=== PATIENT | male | born 1955 | race Caucasian/White ===

== ENCOUNTER 2019-01-08 20:25 | Inpatient (IN) | payer MEDICARE, MEDICAID ==
[~2019-01-08] VITALS: Ht 177.8 cm; Wt 66.9 kg
[2019-01-08 21:16] LABS: HEMATOCRIT 38.1 % (39.0-53.0); HEMOGLOBIN 12.7 g/dL (13.0-17.5); RED BLOOD COUNT 4.35 x10^6/uL (4.30-5.70); RED CELL DISTRIBUTION WIDTH 14.2 % (11.5-14.5); WHITE BLOOD COUNT 5.9 x10^3/uL (4.0-11.0)
[2019-01-08 21:23] LABS: BACTERIA,URINE 0 /HPF (0-FEW); BILIRUBIN,URINE NEG (NEG); CALCIUM 9.3 mg/dL (8.5-10.1); CLARITY,URINE HAZY; COLOR,URINE YELLOW; GLUCOSE,URINE NEG (NEG); NITRITE,URINE NEG (NEG); POTASSIUM 4.2 mmol/L (3.5-5.1); RBC,URINE 0 /HPF (0-2); SQUAMOUS EPITHELIAL CELL,UR OCC /LPF; UROBILINOGEN,URINE 1 mg/dL (0.2 mg/dL); WBC,URINE 0 /HPF (0-4)
[2019-01-08 21:25] LABS: BARBITURATES NEG (NEG); BENZODIAZEPINES NEG (NEG); CANNABINOIDS NEG (NEG); COCAINE NEG (NEG); METHADONE NEG (NEG); OPIATES NEG (NEG); PHENCYCLIDINE NEG (NEG)
[2019-01-08 21:26] LABS: AMPHETAMINE/METHAMPHETAMINE NEG (NEG)
[2019-01-08] MEDS ORDERED: ACETAMINOPHEN 325 MG TABLET PO PRN (21:30)
--- NOTE | 2019-01-08 21:35 | PHYS DOC ---
Adult General Chief Complaint Chief Complaint here for medical evaluation HPI HPI 63 male to be admitted for [facility] , here for medical clearance , patient denies any symptoms . Review of Systems Review of Systems Constitutional: Denies fever or chills [] Eyes: Denies change in visual acuity, redness, or eye pain [] HENT: Denies nasal congestion or sore throat [] Respiratory: Denies cough or shortness of breath [] Cardiovascular: No additional information not addressed in HPI [] GI: Denies abdominal pain, nausea, vomiting, bloody stools or diarrhea [] : Denies dysuria or hematuria [] Musculoskeletal: Denies back pain or joint pain [] Integument: Denies rash or skin lesions [] Current Medications Current Medications Current Medications Medications (Trade) Dose Ordered Sig/Gerard Start Time Stop Time Status Last Admin Dose Admin Acetaminophen (Tylenol) 650 mg PRN Q4HRS PRN 01/08/19 21:30 01/09/19 21:29 UNV Physical Exam Physical Exam Constitutional: Well developed, well nourished, no acute distress, non-toxic appearance. [] HENT: Normocephalic, atraumatic, bilateral external ears normal, oropharynx moist, no oral exudates, nose normal. [] Eyes: PERRLA, EOMI, conjunctiva normal, no discharge. [] Neck: Normal range of motion, no tenderness, supple, no stridor. [] Cardiovascular:Heart rate regular rhythm, no murmur [] Lungs & Thorax: Bilateral breath sounds clear to auscultation [] Abdomen: Bowel sounds normal, soft, no tenderness, no masses, no pulsatile masses. [] Skin: Warm, dry, no erythema, no rash. [] Back: No tenderness, no CVA tenderness. [] Extremities: No tenderness, no cyanosis, no clubbing, ROM intact, no edema. [] Neurologic: Alert and oriented X 3, normal motor function, normal sensory function, no focal deficits noted. [] Current Patient Data Vital Signs Vital Signs Date Time Temp Pulse Resp B/P (MAP) Pulse Ox O2 Delivery O2 Flow Rate FiO2 01/08/19 20:31 98.1 70 18 97 Room Air Lab Results Laboratory Tests Test 01/08/19 20:31 White Blood Count 5.9 x10^3/uL (4.0-11.0) Red Blood Count 4.35 x10^6/uL (4.30-5.70) Hemoglobin 12.7 g/dL (13.0-17.5) L Hematocrit 38.1 % (39.0-53.0) L Mean Corpuscular Volume 88 fL (79-100) Mean Corpuscular Hemoglobin 29 pg (25-35) Mean Corpuscular Hemoglobin Concent 33 g/dL (31-37) Red Cell Distribution Width 14.2 % (11.5-14.5) Platelet Count 293 x10^3/uL (140-400) Urine Collection Type Unknown Urine Color Yellow Urine Clarity Hazy Urine pH 6.0 Urine Specific [place] >=1.030 Urine Protein Neg (NEG-TRACE) Urine Glucose (UA) Neg mg/dL (NEG) Urine Ketones (Stick) Trace mg/dL (NEG) Urine Blood Neg (NEG) Urine Nitrite Neg (NEG) Urine Bilirubin Neg (NEG) Urine Urobilinogen Dipstick 1 mg/dL (0.2 mg/dL) Urine Leukocyte Esterase Neg (NEG) Urine RBC 0 /HPF (0-2) Urine WBC 0 /HPF (0-4) Urine Squamous Epithelial Cells Occ /LPF Urine Bacteria 0 /HPF (0-FEW) Sodium Level 144 mmol/L (136-145) Potassium Level 4.2 mmol/L (3.5-5.1) Chloride Level 106 mmol/L (98-107) Carbon Dioxide Level 28 mmol/L (21-32) Anion Gap 10 (6-14) Blood Urea Nitrogen 21 mg/dL (8-26) Creatinine 1.0 mg/dL (0.7-1.3) Estimated GFR (Cockcroft-Gault) 75.0 Glucose Level 93 mg/dL (70-99) Calcium Level 9.3 mg/dL (8.5-10.1) Urine Opiates Screen Neg (NEG) Urine Methadone Screen Neg (NEG) Urine Barbiturates Neg (NEG) Urine Phencyclidine Screen Neg (NEG) Urine Amphetamine/Methamphetamine Neg (NEG) Urine Benzodiazepines Screen Neg (NEG) Urine Cocaine Screen Neg (NEG) Urine Cannabinoids Screen Neg (NEG) Ethyl Alcohol Level < 10 mg/dL (0-10) Urine Ethyl Alcohol Neg (NEG) EKG EKG [] Radiology/Procedures Radiology/Procedures [] Course & Med Decision Making Course & Med Decision Making Pertinent Labs and Imaging studies reviewed. (See chart for details) [] Final Impression Final Impression [] Problems: (1) Medical clearance for psychiatric admission Dragon Disclaimer Dragon Disclaimer This electronic medical record was generated, in whole or in part, using a voice recognition dictation system. CHECO HARRISON MD Jan 08, 2019 21:35
[2019-01-09] MEDS ORDERED: ACETAMINOPHEN 325 MG TABLET PO PRN ×2 (00:30→02:15)
[2019-01-09] MEDS ORDERED: MAGNESIUM HYDROXIDE 2,400 MG/30 ML ORAL.SUSP. PO PRN (00:30)
[2019-01-09] MEDS ORDERED: MAG HYDROX/AL HYDROX/SIMETH 30 ML ORAL.SUSP PO PRN (00:30)
[2019-01-09] MEDS ORDERED: METHYL SALICYLATE/MENTHOL TOPICAL OINTMENT 29GM TUBE. TP PRN (00:30)
[2019-01-09 01:05] LABS: VAL ACID 18 mcg/mL (50-100)
[2019-01-09 01:16] VITALS: BP 149/90
[2019-01-09] MEDS ORDERED: DORZ10DR27 OD (02:04)
[2019-01-09] MEDS ORDERED: ERYT1OIN6 OS (02:04)
[2019-01-09] MEDS ORDERED: CARB15DR3 OD (02:04)
[2019-01-09] MEDS ORDERED: AMIN30LI5 PO (02:04)
[2019-01-09] MEDS ORDERED: LATA2.5D3 OD (02:04)
[2019-01-09] MEDS ORDERED: ESTR0.5T PO (02:04)
[2019-01-09] MEDS ORDERED: DEXT1CAP PO (02:04)
[2019-01-09] MEDS ORDERED: SENN1TAB62 PO (02:04)
[2019-01-09] MEDS ORDERED: DIVA500T2 PO (02:04)
[2019-01-09] MEDS ORDERED: HALO5VIA2 IM (02:04)
[2019-01-09] MEDS ORDERED: CHOL500021 PO (02:04)
[2019-01-09] MEDS ORDERED: TAMS0.4C97 PO (02:04)
[2019-01-09] MEDS ORDERED: POLY17PO5 PO (02:04)
[2019-01-09] MEDS ORDERED: LEVO25TA4 PO (02:04)
[2019-01-09] MEDS ORDERED: MULT1TAB52 PO (02:04)
[2019-01-09] MEDS ORDERED: RANI150T2 PO (02:04)
[2019-01-09] MEDS ORDERED: CARB15DR3 OU (02:04)
[2019-01-09] MEDS ORDERED: RISP2TAB3 PO (02:04)
[2019-01-09] MEDS ORDERED: ACET-704 PO (02:04)
[2019-01-09] MEDS ORDERED: LORA0.5T PO ×2 (02:04)
[2019-01-09] MEDS ORDERED: ACET325T9 PO (02:04)
[2019-01-09] MEDS ORDERED: LACT10SO PO (02:04)
[2019-01-09] MEDS ORDERED: LORazepam 0.5 MG TABLET PO PRN (02:15)
[2019-01-09] MEDS ORDERED: ACETAMINOPHEN/CODEINE 300/30MG TABLET PO PRN ×2 (02:15)
[2019-01-09] MEDS ORDERED: HALOPERIDOL LACT 5 MG/ML VIAL. IM PRN (02:15)
[2019-01-09] MEDS: LEVOTHYROXINE 25 MCG TABLET. PO SCH (05:48)
[2019-01-09 06:11] VITALS: BP 115/74
[2019-01-09] MEDS: DIVALPROEX 125 MG CAP.SPRINK PO SCH ×2 (08:42→19:54)
[2019-01-09] MEDS: MULTIVITAMIN with MINERAL TABLET. PO SCH (08:42)
[2019-01-09] MEDS: FAMOTIDINE 20 MG TABLET PO SCH ×2 (08:42→19:54)
[2019-01-09] MEDS: ERYTHROMYCIN 0.5% OPHTH OINTMENT 1GM TUBE. OS SCH (08:42)
[2019-01-09] MEDS: LORazepam 0.5 MG TABLET PO SCH ×3 (08:42→19:58)
[2019-01-09] MEDS: risperiDONE 2 MG TABLET. PO SCH ×2 (08:42→19:54)
[2019-01-09] MEDS: LACTULOSE 20 GM/30 ML SOLUTION. PO SCH ×2 (08:42→19:54)
[2019-01-09] MEDS ORDERED: PROTEIN HYDROLYS PO SCH (09:00)
[2019-01-09] MEDS ORDERED: POLYVINYL ALCOHOL/POVIDONE/PF OPHTH SOLUTION DROPERETTE. OU SCH (09:00)
[2019-01-09] MEDS ORDERED: AMINO ACIDS PO SCH (09:00)
[2019-01-09] MEDS: ESTRADIOL 1 MG TABLET PO SCH (09:01)
[2019-01-09] MEDS: DEXTROMETHORPHAN/QUINIDINE 20/10MG CAPSULE. PO SCH ×2 (09:01→19:58)
[2019-01-09] MEDS: LATANOPROST 0.005% OPHTH SOLUTION 2.5ML BOTTLE. OD SCH (09:01)
[2019-01-09] MEDS: DORZOLAMIDE/TIMOLOL 2%/0.5% OPHTH SOLUTION 10ML BOTTLE. OD SCH ×2 (09:01→20:44)
[2019-01-09] MEDS: POLYETHYLENE GLYCOL 3350 17 GM PACKET. PO SCH (09:02)
[2019-01-09] MEDS: CHOLECALCIFEROL (VITAMIN D3) 50,000 UNIT CAPSULE PO SCH (09:05)
--- NOTE | 2019-01-09 10:06 | EKG ---
[address] [address] Test Date: 2019-01-08 Test Time: 21:19:32 Pat Name: FANG VALERIO Department: Room: [address] [place] [address] Gender: M Furnace Repairer: : 1955 Requested By: CHECO HARRISON Order Number: [id number] Reading MD: Lang Toth MD Measurements Intervals [place] Rate: 66 P: 90 CT: 144 QRS: 67 QRSD: 126 T: 25 QT: 426 QTc: 448 Interpretive Statements SINUS RHYTHM RBBB Electronically Signed On 01-10-2019 16:37:26 CDT by Lang Toth MD
[2019-01-09 13:46] LABS: THYROID STIM HORMONE (TSH) 4.019 uIU/mL (0.358-3.740)
[2019-01-09 16:01] VITALS: BP 106/73
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
[2019-01-09 19:11] LABS: THYROXINE 7.4 ug/dL (4.5-12.0)
[2019-01-09] MEDS: SENNOSIDES/DOCUSATE 8.6/50MG TABLET. PO SCH (19:58)
[2019-01-09] MEDS: TAMSULOSIN 0.4 MG CAP.ER.24H. PO SCH (19:58)
[2019-01-09] MEDS ORDERED: NON FORMULARY ITEM (Carboxymethylcellulos/Glycerin (Refresh Optive Eye Drops) 1 DROP) OD SCH (21:00)
--- NOTE | 2019-01-09 22:33 | PDOC ---
Exam Note: Adrián Note: Please also refer to the separate dictated note~for this date of service dictated separately. Discussed the patient with Nursing staff reviewed the chart.~Reviewed interim history and current functioning. Reviewed vital signs,~ Labs/ Radiology~and current medications noted below. Continue current treatment with the changes noted in the dictated addendum note Assessment: Vital Signs: Vital Signs Date Time Temp Pulse Resp B/P (MAP) Pulse Ox O2 Delivery O2 Flow Rate FiO2 01/09/19 16:01 97.9 58 17 106/73 (84) 97 Room Air I&O Intake and Output 01/09/19 07:00 Intake Total 0 ml Balance 0 ml Intake Oral 0 ml Current Medications: Meds: Current Medications Acetaminophen (Tylenol) 650 mg PRN Q4HRS PRN PO FEVER; Start 01/08/19 at 21:30 ; Stop 01/09/19 at 21:29; Status Cancel Acetaminophen (Tylenol) 650 mg PRN Q6HRS PRN PO PAIN / TEMP; Start 01/09/19 at 00:30; Status Cancel Multi-Ingredient Ointment (Analgesic Register) 1 she PRN QID PRN TP MUSCLE PAIN; Start 01/09/19 at 00:30 Al Hydroxide/Mg Hydroxide (Mylanta Plus Xs) 15 ml PRN AFTMEALHC PRN PO DYSPEPSIA; Start 01/09/19 at 00:30 Magnesium Hydroxide (Milk Of Magnesia) 2,400 mg PRN QHS PRN PO CONSTIPATION; Start 01/09/19 at 00:30 Divalproex Sodium (Depakote Sprinkles) 125 mg BID PO Last administered on at 19:54; Start 01/09/19 at 09:00 Estradiol (Estrace) 0.5 mg DAILY PO Last administered on 01/09/19at 09:01; Start 01/09/19 at 09:00 Haloperidol Lactate (Haldol) 5 mg PRN DAILY PRN IM ANXIETY / AGITATION; Start 01/09/19 at 02:15 Lorazepam (Ativan) 0.5 mg PRN DAILY PRN PO ANXIETY; Start 01/09/19 at 02:15 Lorazepam (Ativan) 0.5 mg TID PO Last administered on 01/09/19at 19:58; Start at 09:00 Risperidone (RisperDAL) 2 mg BID PO Last administered on 01/09/19at 19:54; Start 01/09/19 at 09:00 Acetaminophen (Tylenol) 650 mg PRN Q6HRS PRN PO PAIN / TEMP; Start 01/09/19 at 02:15 Vitamin D (Vitamin D3) 50,000 unit WEEKLY PO Last administered on 01/09/19at 09: 05; Start 01/09/19 at 09:00 Dextromethorphan/ Quinidine (Nuedexta 20-10 Mg Capsule) 1 cap BID PO Last administered on 01/09/19at 19:58; Start 01/09/19 at 09:00 Senna/Docusate Sodium (Senna Plus) 1 tab HS PO Last administered on 01/09/19at 19:58; Start 01/09/19 at 21:00 Tamsulosin HCl (Flomax) 0.4 mg HS PO Last administered on 01/09/19at 19:58; Start 01/09/19 at 21:00 Acetaminophen/ Codeine Phosphate (Tylenol #3) 1 tab PRN Q4HRS PRN PO PAIN; Start 01/09/19 at 02:15 Acetaminophen/ Codeine Phosphate (Tylenol #3) 2 tab PRN Q4HRS PRN PO PAIN; Start 01/09/19 at 02:15 Non-Formulary Medication (Amino Acids/ Protein Hydrolys (Pro-Stat c Liquid Packet)) 30 ml DAILY PO ; Start 01/09/19 at 09:00; Status UNV Non-Formulary Medication (Carboxymethylcellulos/ Glycerin (Refresh Optive Eye Drops)) 1 drop HS OD ; Start 01/09/19 at 21:00; Stop 01/09/19 at 21:00; Status DC Artificial Tears (Refresh Classic) 1 drop QID OU ; Start 01/09/19 at 09:00; Stop 01/09/19 at 09:00; Status DC Dorzolamide/ Timolol (Cosopt) 1 drop BID OD Last administered on 01/09/19at 20: 44; Start 01/09/19 at 09:00 Lactulose (Lactulose) 20 gm BID PO Last administered on 01/09/19at 19:54; Start 01/09/19 at 09:00 Latanoprost (Xalatan) 1 drop QHS OD Last administered on 01/09/19 09:01; Start 01/09/19 at 21:00 Levothyroxine Sodium (Synthroid) 25 mcg DAILY06 PO Last administered on 05:48; Start 01/09/19 at 06:00 Multivitamins/ Calcium (Thera-M Plus) 1 tab DAILY PO Last administered on 08:42; Start 01/09/19 at 09:00 Polyethylene Glycol (miraLAX) 17 gm DAILY PO Last administered on 01/09/19 09: 02; Start 01/09/19 at 09:00 Famotidine (Pepcid) 20 mg BID PO Last administered on 01/09/19 19:54; Start at 09:00 Erythromycin (Romycin) 1 inch DAILY OS Last administered on 01/09/19 08:42; Start 01/09/19 at 09:00 Active Scripts Active Reported Ranitidine Hcl 150 Mg Tablet 150 Mg PO BID Tylenol (Acetaminophen) 325 Mg Tablet 650 Mg PO PRN Q6HRS Flomax (Tamsulosin Hcl) 0.4 Mg Cap.er.24h 0.4 Mg PO HS Senna Plus Tablet (Sennosides/Docusate Sodium) 1 Each Tablet 1 Each PO HS Risperidone 2 Mg Tablet 2 Mg PO BID Refresh Optive Eye Drops (Carboxymethylcellulos/Glycerin) 15 Ml Drops 1 Drop OU QID Refresh Optive Eye Drops (Carboxymethylcellulos/Glycerin) 15 Ml Drops 1 Drop OD HS Pro-Stat Awc Liquid Packet (Amino Acids/Protein Hydrolys) 30 Ml Liquid.pkt 30 Ml PO DAILY Miralax (Polyethylene Glycol 3350) 17 Gm Powd.pack 17 Gm PO DAILY Nuedexta 20-10 Mg Capsule (Dextromethorphan Hbr/Quinidine) 1 Each Capsule 1 Each PO BID Multivitamins (Multivitamin) 1 Each Tablet 1 Each PO DAILY Levothyroxine Sodium 25 Mcg Tablet 25 Mcg PO DAILYAC Latanoprost 2.5 Ml Drops 1 Drop OD QHS Lactulose 10 Gm/15 Ml Solution 20 Gm PO BID Haloperidol Lactate 5 Mg/1 Ml Vial 5 Mg IM PRN DAILY PRN Estradiol 0.5 Mg Tablet 0.5 Mg PO DAILY Erythromycin (Erythromycin Base) 1 Gm Oint...g. 1 She OS BID Dorzolamide-Timolol Eye Drops (Dorzolamide Hcl/Timolol Maleat) 10 Ml Drops 1 Drop OD BID Depakote (Divalproex Sodium) 500 Mg Tablet.dr 125 Mg PO BID D3-50 (Cholecalciferol (Vitamin D3)) 50,000 Unit Capsule 50,000 Unit PO WEEKLY SUNDAY Lorazepam 0.5 Mg Tablet 0.5 Mg PO PRN DAILY PRN Lorazepam 0.5 Mg Tablet 0.5 Mg PO TID Tylenol With Codeine #3 Tablet (Acetaminophen With Codeine) 1 Each Tablet 2 Each PO PRN Q4HRS PRN Tylenol With Codeine #3 Tablet (Acetaminophen With Codeine) 1 Each Tablet 1 Each PO PRN Q4HRS PRN I have reviewed the current psychotropics carefully including drug interactions. Risk benefit ratio favors no change other than as noted in my dictated progress note. Diagnosis: Problems: (1) Medical clearance for psychiatric admission (2) Anxiety disorder (3) Major depressive disorder, recurrent episode (4) Impulse control disorder (5) Schizoaffective disorder, chronic condition with acute exacerbation (6) Mild cognitive disorder LEENA CHINCHILLA MD Jan 09, 2019 22:33
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
[2019-01-10] MEDS: LEVOTHYROXINE 25 MCG TABLET. PO SCH (05:45)
[2019-01-10 06:14] VITALS: BP 108/67
[2019-01-10] MEDS: POLYETHYLENE GLYCOL 3350 17 GM PACKET. PO SCH (07:51)
[2019-01-10] MEDS: DEXTROMETHORPHAN/QUINIDINE 20/10MG CAPSULE. PO SCH ×2 (07:52→20:00)
[2019-01-10] MEDS: FAMOTIDINE 20 MG TABLET PO SCH ×2 (07:52→20:01)
[2019-01-10] MEDS: ESTRADIOL 1 MG TABLET PO SCH (07:52)
[2019-01-10] MEDS: DIVALPROEX 125 MG CAP.SPRINK PO SCH ×2 (07:52→20:01)
[2019-01-10] MEDS: risperiDONE 2 MG TABLET. PO SCH ×2 (07:53→20:01)
[2019-01-10] MEDS: ERYTHROMYCIN 0.5% OPHTH OINTMENT 1GM TUBE. OS SCH (07:53)
[2019-01-10] MEDS: LACTULOSE 20 GM/30 ML SOLUTION. PO SCH ×2 (07:53→20:00)
[2019-01-10] MEDS: MULTIVITAMIN with MINERAL TABLET. PO SCH (07:53)
[2019-01-10] MEDS: DORZOLAMIDE/TIMOLOL 2%/0.5% OPHTH SOLUTION 10ML BOTTLE. OD SCH ×2 (07:55→20:01)
[2019-01-10] MEDS: LORazepam 0.5 MG TABLET PO SCH ×3 (07:56→20:02)
[2019-01-10 16:05] VITALS: BP 107/74
[2019-01-10] MEDS ORDERED: traZODone 50 MG TABLET. PO PRN (17:15)
[2019-01-10] MEDS: TAMSULOSIN 0.4 MG CAP.ER.24H. PO SCH (20:00)
[2019-01-10] MEDS: LATANOPROST 0.005% OPHTH SOLUTION 2.5ML BOTTLE. OD SCH (20:01)
[2019-01-10] MEDS: SENNOSIDES/DOCUSATE 8.6/50MG TABLET. PO SCH (20:01)
[2019-01-10] MEDS: traZODone 50 MG TABLET. PO SCH (20:02)
--- NOTE | 2019-01-10 22:38 | PDOC ---
Exam Note: Adrián Note: Please also refer to the separate dictated note~for this date of service dictated separately.~Patient seen individually. Discussed the patient with Nursing staff reviewed the chart.~Reviewed interim history and current functioning. Reviewed vital signs,~Labs/ Radiology~and current medications noted below. Continue current treatment with the changes noted in the dictated addendum note Assessment: Vital Signs: Vital Signs Date Time Temp Pulse Resp B/P (MAP) Pulse Ox O2 Delivery O2 Flow Rate FiO2 01/10/19 16:05 98.1 69 16 107/74 (85) 95 Room Air I&O Intake and Output 01/10/19 07:00 Intake Total 480 ml Balance 480 ml Intake Oral 480 ml Current Medications: Meds: Current Medications Acetaminophen (Tylenol) 650 mg PRN Q4HRS PRN PO FEVER; Start 01/08/19 at 21:30 ; Stop 01/09/19 at 21:29; Status Cancel Acetaminophen (Tylenol) 650 mg PRN Q6HRS PRN PO PAIN / TEMP; Start 01/09/19 at 00:30; Status Cancel Multi-Ingredient Ointment (Analgesic [place]) 1 she PRN QID PRN TP MUSCLE PAIN; Start 01/09/19 at 00:30 Al Hydroxide/Mg Hydroxide (Mylanta Plus Xs) 15 ml PRN AFTMEALHC PRN PO DYSPEPSIA; Start 01/09/19 at 00:30 Magnesium Hydroxide (Milk Of Magnesia) 2,400 mg PRN QHS PRN PO CONSTIPATION; Start 01/09/19 at 00:30 Divalproex Sodium (Depakote Sprinkles) 125 mg BID PO Last administered on at 07:52; Start 01/09/19 at 09:00; Stop 01/10/19 at 17:11; Status DC Estradiol (Estrace) 0.5 mg DAILY PO Last administered on 01/10/19at 07:52; Start 01/09/19 at 09:00 Haloperidol Lactate (Haldol) 5 mg PRN DAILY PRN IM ANXIETY / AGITATION; Start 01/09/19 at 02:15 Lorazepam (Ativan) 0.5 mg PRN DAILY PRN PO ANXIETY; Start 01/09/19 at 02:15 Lorazepam (Ativan) 0.5 mg TID PO Last administered on 01/10/19at 20:02; Start at 09:00 Risperidone (RisperDAL) 2 mg BID PO Last administered on 01/10/19 20:01; Start 01/09/19 at 09:00 Acetaminophen (Tylenol) 650 mg PRN Q6HRS PRN PO PAIN / TEMP; Start 01/09/19 at 02:15 Vitamin D (Vitamin D3) 50,000 unit WEEKLY PO Last administered on 01/09/19at 09: 05; Start 01/09/19 at 09:00 Dextromethorphan/ Quinidine (Nuedexta 20-10 Mg Capsule) 1 cap BID PO Last administered on 01/10/19 20:00; Start 01/09/19 at 09:00 Senna/Docusate Sodium (Senna Plus) 1 tab HS PO Last administered on 01/10/19 20:01; Start 01/09/19 at 21:00 Tamsulosin HCl (Flomax) 0.4 mg HS PO Last administered on 01/10/19 20:00; Start 01/09/19 at 21:00 Acetaminophen/ Codeine Phosphate (Tylenol #3) 1 tab PRN Q4HRS PRN PO PAIN; Start 01/09/19 at 02:15 Acetaminophen/ Codeine Phosphate (Tylenol #3) 2 tab PRN Q4HRS PRN PO PAIN; Start 01/09/19 at 02:15 Non-Formulary Medication (Amino Acids/ Protein Hydrolys (Pro-Stat Awc Liquid Packet)) 30 ml DAILY PO ; Start 01/09/19 at 09:00; Status UNV Non-Formulary Medication (Carboxymethylcellulos/ Glycerin (Refresh Optive Eye Drops)) 1 drop HS OD ; Start 01/09/19 at 21:00; Stop 01/09/19 at 21:00; Status DC Artificial Tears (Refresh Classic) 1 drop QID OU ; Start 01/09/19 at 09:00; Stop 01/09/19 at 09:00; Status DC Dorzolamide/ Timolol (Cosopt) 1 drop BID OD Last administered on 01/10/19 20: 01; Start 01/09/19 at 09:00 Lactulose (Lactulose) 20 gm BID PO Last administered on 01/10/19at 20:00; Start 01/09/19 at 09:00 Latanoprost (Xalatan) 1 drop QHS OD Last administered on 01/10/19 20:01; Start 01/09/19 at 21:00 Levothyroxine Sodium (Synthroid) 25 mcg DAILY06 PO Last administered on 05:45; Start 01/09/19 at 06:00 Multivitamins/ Calcium (Thera-M Plus) 1 tab DAILY PO Last administered on 07:53; Start 01/09/19 at 09:00 Polyethylene Glycol (miraLAX) 17 gm DAILY PO Last administered on 01/10/19 07: 51; Start 01/09/19 at 09:00 Famotidine (Pepcid) 20 mg BID PO Last administered on 01/10/19 20:01; Start at 09:00 Erythromycin (Romycin) 1 inch DAILY OS Last administered on 01/10/19 07:53; Start 01/09/19 at 09:00; Stop 01/10/19 at 10:32; Status DC Divalproex Sodium (Depakote Sprinkles) 250 mg BID PO Last administered on 20:01; Start 01/10/19 at 21:00 Trazodone HCl (Desyrel) 50 mg QHS PO Last administered on 01/10/19 20:02; Start 01/10/19 at 21:00 Trazodone HCl (Desyrel) 50 mg PRN QHS PRN PO INSOMNIA; Start 01/10/19 at 17:15 Active Scripts Active Reported Ranitidine Hcl 150 Mg Tablet 150 Mg PO BID Tylenol (Acetaminophen) 325 Mg Tablet 650 Mg PO PRN Q6HRS Flomax (Tamsulosin Hcl) 0.4 Mg Cap.er.24h 0.4 Mg PO HS Senna Plus Tablet (Sennosides/Docusate Sodium) 1 Each Tablet 1 Each PO HS Risperidone 2 Mg Tablet 2 Mg PO BID Refresh Optive Eye Drops (Carboxymethylcellulos/Glycerin) 15 Ml Drops 1 Drop OU QID Refresh Optive Eye Drops (Carboxymethylcellulos/Glycerin) 15 Ml Drops 1 Drop OD HS Pro-Stat Awc Liquid Packet (Amino Acids/Protein Hydrolys) 30 Ml Liquid.pkt 30 Ml PO DAILY Miralax (Polyethylene Glycol 3350) 17 Gm Powd.pack 17 Gm PO DAILY Nuedexta 20-10 Mg Capsule (Dextromethorphan Hbr/Quinidine) 1 Each Capsule 1 Each PO BID Multivitamins (Multivitamin) 1 Each Tablet 1 Each PO DAILY Levothyroxine Sodium 25 Mcg Tablet 25 Mcg PO DAILYAC Latanoprost 2.5 Ml Drops 1 Drop OD QHS Lactulose 10 Gm/15 Ml Solution 20 Gm PO BID Haloperidol Lactate 5 Mg/1 Ml Vial 5 Mg IM PRN DAILY PRN Estradiol 0.5 Mg Tablet 0.5 Mg PO DAILY Erythromycin (Erythromycin Base) 1 Gm Oint...g. 1 She OS BID Dorzolamide-Timolol Eye Drops (Dorzolamide Hcl/Timolol Maleat) 10 Ml Drops 1 Drop OD BID Depakote (Divalproex Sodium) 500 Mg Tablet.dr 125 Mg PO BID D3-50 (Cholecalciferol (Vitamin D3)) 50,000 Unit Capsule 50,000 Unit PO WEEKLY SUNDAY Lorazepam 0.5 Mg Tablet 0.5 Mg PO PRN DAILY PRN Lorazepam 0.5 Mg Tablet 0.5 Mg PO TID Tylenol With Codeine #3 Tablet (Acetaminophen With Codeine) 1 Each Tablet 2 Each PO PRN Q4HRS PRN Tylenol With Codeine #3 Tablet (Acetaminophen With Codeine) 1 Each Tablet 1 Each PO PRN Q4HRS PRN I have reviewed the current psychotropics carefully including drug interactions. Risk benefit ratio favors no change other than as noted in my dictated progress note. Diagnosis: Problems: (1) Medical clearance for psychiatric admission (2) Anxiety disorder (3) Major depressive disorder, recurrent episode (4) Impulse control disorder (5) Schizoaffective disorder, chronic condition with acute exacerbation (6) Mild cognitive disorder LEENA CHINCHILLA MD Jan 10, 2019 22:38
[2019-01-11 02:10] LABS: HEMOGLOBIN A1C 5.7 % (4.8-5.6)
[2019-01-11] MEDS: LEVOTHYROXINE 25 MCG TABLET. PO SCH (05:38)
[2019-01-11 05:49] VITALS: BP 99/64
[2019-01-11] MEDS: ESTRADIOL 1 MG TABLET PO SCH (08:02)
[2019-01-11] MEDS: DEXTROMETHORPHAN/QUINIDINE 20/10MG CAPSULE. PO SCH ×2 (08:02→19:28)
[2019-01-11] MEDS: MULTIVITAMIN with MINERAL TABLET. PO SCH (08:02)
[2019-01-11] MEDS: DIVALPROEX 125 MG CAP.SPRINK PO SCH ×2 (08:02→19:27)
[2019-01-11] MEDS: FAMOTIDINE 20 MG TABLET PO SCH ×2 (08:02→19:27)
[2019-01-11] MEDS: POLYETHYLENE GLYCOL 3350 17 GM PACKET. PO SCH (08:02)
[2019-01-11] MEDS: LACTULOSE 20 GM/30 ML SOLUTION. PO SCH ×2 (08:03→19:28)
[2019-01-11] MEDS: risperiDONE 2 MG TABLET. PO SCH ×2 (08:03→19:27)
[2019-01-11] MEDS: DORZOLAMIDE/TIMOLOL 2%/0.5% OPHTH SOLUTION 10ML BOTTLE. OD SCH ×2 (08:03→19:28)
[2019-01-11] MEDS: LORazepam 0.5 MG TABLET PO SCH ×3 (08:04→19:28)
--- NOTE | 2019-01-11 14:46 | PN ---
DATE: 01/11/2019 PSYCHIATRIC PROGRESS NOTE This is a late entry 01/10/2019 covers elements not covered in my initial note. SUBJECTIVE: I met with the patient in the evening. The patient slept 3-1/4 hours previous night. Per nursing report, I think he was "talking to his stomach." He remains paranoid, suspicious, complains of nausea. REVIEW OF SYSTEMS: No CV, , pulmonary, eye system symptoms on review. MENTAL STATUS EXAM: Oriented to himself, situation quite irritable, paranoid, as I met with him individually. Poor eye contact, constantly walking up and down the levy. Speech, low in rate and rhythm, often responses monosyllabic. He became agitated as I questioned him about his history and walk right away and I had to follow back with him. REVIEW OF SYSTEMS: No CV, , pulmonary, eye system symptoms on review. MENTAL STATUS: Oriented to himself and situation. Speech as above. Abstraction fair, computation impaired, language function intact, attention span short. Mood and affect withdrawn. LABORATORY DATA: Reviewed. IMPRESSION: Schizoaffective disorder, bipolar type, mixed with psychotic features; anxiety disorder, unspecified; mild cognitive impairment. PLAN: We will get past psychiatric records. Start trazodone 50 mg p.o. at bedtime p.r.n. insomnia, february repeat x 1. Valproic acid level at last check was 18 on Depakote 125 b.i.d. We will increased it 250 b.i.d. and check CBC, CMP, valproic acid level in 3 days. Rest unchanged. MAN Bessy CHINCHILLA MD DR: MARY/gage JOB#: [id number] / [id number]
[2019-01-11 16:20] VITALS: BP 108/73
[2019-01-11] MEDS: SENNOSIDES/DOCUSATE 8.6/50MG TABLET. PO SCH (19:27)
[2019-01-11] MEDS: TAMSULOSIN 0.4 MG CAP.ER.24H. PO SCH (19:28)
[2019-01-11] MEDS: LATANOPROST 0.005% OPHTH SOLUTION 2.5ML BOTTLE. OD SCH (19:28)
[2019-01-11] MEDS: traZODone 50 MG TABLET. PO SCH (19:28)
--- NOTE | 2019-01-11 23:04 | PDOC ---
Exam Note: Adrián Note: Please also refer to the separate dictated note~for this date of service dictated separately.~Patient seen individually. Discussed the patient with Nursing staff reviewed the chart.~Reviewed interim history and current functioning. Reviewed vital signs,~Labs/ Radiology~and current medications noted below. Continue current treatment with the changes noted in the dictated addendum note Assessment: Vital Signs: Vital Signs Date Time Temp Pulse Resp B/P (MAP) Pulse Ox O2 Delivery O2 Flow Rate FiO2 01/11/19 16:20 97.3 70 20 108/73 (85) 92 Room Air I&O Intake and Output 01/11/19 07:00 Intake Total 600 ml Balance 600 ml Intake Oral 600 ml Current Medications: Meds: Current Medications Acetaminophen (Tylenol) 650 mg PRN Q4HRS PRN PO FEVER; Start 01/08/19 at 21:30 ; Stop 01/09/19 at 21:29; Status Cancel Acetaminophen (Tylenol) 650 mg PRN Q6HRS PRN PO PAIN / TEMP; Start 01/09/19 at 00:30; Status Cancel Multi-Ingredient Ointment (Analgesic [place]) 1 she PRN QID PRN TP MUSCLE PAIN; Start 01/09/19 at 00:30 Al Hydroxide/Mg Hydroxide (Mylanta Plus Xs) 15 ml PRN AFTMEALHC PRN PO DYSPEPSIA; Start 01/09/19 at 00:30 Magnesium Hydroxide (Milk Of Magnesia) 2,400 mg PRN QHS PRN PO CONSTIPATION; Start 01/09/19 at 00:30 Divalproex Sodium (Depakote Sprinkles) 125 mg BID PO Last administered on at 07:52; Start 01/09/19 at 09:00; Stop 01/10/19 at 17:11; Status DC Estradiol (Estrace) 0.5 mg DAILY PO Last administered on 01/11/19at 08:02; Start 01/09/19 at 09:00 Haloperidol Lactate (Haldol) 5 mg PRN DAILY PRN IM ANXIETY / AGITATION; Start 01/09/19 at 02:15 Lorazepam (Ativan) 0.5 mg PRN DAILY PRN PO ANXIETY; Start 01/09/19 at 02:15 Lorazepam (Ativan) 0.5 mg TID PO Last administered on 01/11/19at 19:28; Start at 09:00 Risperidone (RisperDAL) 2 mg BID PO Last administered on 01/11/19 19:27; Start 01/09/19 at 09:00 Acetaminophen (Tylenol) 650 mg PRN Q6HRS PRN PO PAIN / TEMP; Start 01/09/19 at 02:15 Vitamin D (Vitamin D3) 50,000 unit WEEKLY PO Last administered on 01/09/19 09: 05; Start 01/09/19 at 09:00 Dextromethorphan/ Quinidine (Nuedexta 20-10 Mg Capsule) 1 cap BID PO Last administered on 01/11/19:28; Start 01/09/19 at 09:00 Senna/Docusate Sodium (Senna Plus) 1 tab HS PO Last administered on 01/11/19 19:27; Start 01/09/19 at 21:00 Tamsulosin HCl (Flomax) 0.4 mg HS PO Last administered on 01/11/19:28; Start 01/09/19 at 21:00 Acetaminophen/ Codeine Phosphate (Tylenol #3) 1 tab PRN Q4HRS PRN PO PAIN; Start 01/09/19 at 02:15 Acetaminophen/ Codeine Phosphate (Tylenol #3) 2 tab PRN Q4HRS PRN PO PAIN; Start 01/09/19 at 02:15 Non-Formulary Medication (Amino Acids/ Protein Hydrolys (Pro-Stat Awc Liquid Packet)) 30 ml DAILY PO ; Start 01/09/19 at 09:00; Status UNV Non-Formulary Medication (Carboxymethylcellulos/ Glycerin (Refresh Optive Eye Drops)) 1 drop HS OD ; Start 01/09/19 at 21:00; Stop 01/09/19 at 21:00; Status DC Artificial Tears (Refresh Classic) 1 drop QID OU ; Start 01/09/19 at 09:00; Stop 01/09/19 at 09:00; Status DC Dorzolamide/ Timolol (Cosopt) 1 drop BID OD Last administered on 01/11/19 19: 28; Start 01/09/19 at 09:00 Lactulose (Lactulose) 20 gm BID PO Last administered on 01/11/19:28; Start 01/09/19 at 09:00 Latanoprost (Xalatan) 1 drop QHS OD Last administered on 01/11/19 19:28; Start 01/09/19 at 21:00 Levothyroxine Sodium (Synthroid) 25 mcg DAILY06 PO Last administered on 05:38; Start 01/09/19 at 06:00 Multivitamins/ Calcium (Thera-M Plus) 1 tab DAILY PO Last administered on 08:02; Start 01/09/19 at 09:00 Polyethylene Glycol (miraLAX) 17 gm DAILY PO Last administered on 01/11/19 08: 02; Start 01/09/19 at 09:00 Famotidine (Pepcid) 20 mg BID PO Last administered on 01/11/19 19:27; Start at 09:00 Erythromycin (Romycin) 1 inch DAILY OS Last administered on 01/10/19 07:53; Start 01/09/19 at 09:00; Stop 01/10/19 at 10:32; Status DC Divalproex Sodium (Depakote Sprinkles) 250 mg BID PO Last administered on 19:27; Start 01/10/19 at 21:00 Trazodone HCl (Desyrel) 50 mg QHS PO Last administered on 01/11/19 19:28; Start 01/10/19 at 21:00 Trazodone HCl (Desyrel) 50 mg PRN QHS PRN PO INSOMNIA; Start 01/10/19 at 17:15 Active Scripts Active Reported Ranitidine Hcl 150 Mg Tablet 150 Mg PO BID Tylenol (Acetaminophen) 325 Mg Tablet 650 Mg PO PRN Q6HRS Flomax (Tamsulosin Hcl) 0.4 Mg Cap.er.24h 0.4 Mg PO HS Senna Plus Tablet (Sennosides/Docusate Sodium) 1 Each Tablet 1 Each PO HS Risperidone 2 Mg Tablet 2 Mg PO BID Refresh Optive Eye Drops (Carboxymethylcellulos/Glycerin) 15 Ml Drops 1 Drop OU QID Refresh Optive Eye Drops (Carboxymethylcellulos/Glycerin) 15 Ml Drops 1 Drop OD HS Pro-Stat Awc Liquid Packet (Amino Acids/Protein Hydrolys) 30 Ml Liquid.pkt 30 Ml PO DAILY Miralax (Polyethylene Glycol 3350) 17 Gm Powd.pack 17 Gm PO DAILY Nuedexta 20-10 Mg Capsule (Dextromethorphan Hbr/Quinidine) 1 Each Capsule 1 Each PO BID Multivitamins (Multivitamin) 1 Each Tablet 1 Each PO DAILY Levothyroxine Sodium 25 Mcg Tablet 25 Mcg PO DAILYAC Latanoprost 2.5 Ml Drops 1 Drop OD QHS Lactulose 10 Gm/15 Ml Solution 20 Gm PO BID Haloperidol Lactate 5 Mg/1 Ml Vial 5 Mg IM PRN DAILY PRN Estradiol 0.5 Mg Tablet 0.5 Mg PO DAILY Erythromycin (Erythromycin Base) 1 Gm Oint...g. 1 She OS BID Dorzolamide-Timolol Eye Drops (Dorzolamide Hcl/Timolol Maleat) 10 Ml Drops 1 Drop OD BID Depakote (Divalproex Sodium) 500 Mg Tablet.dr 125 Mg PO BID D3-50 (Cholecalciferol (Vitamin D3)) 50,000 Unit Capsule 50,000 Unit PO WEEKLY SUNDAY Lorazepam 0.5 Mg Tablet 0.5 Mg PO PRN DAILY PRN Lorazepam 0.5 Mg Tablet 0.5 Mg PO TID Tylenol With Codeine #3 Tablet (Acetaminophen With Codeine) 1 Each Tablet 2 Each PO PRN Q4HRS PRN Tylenol With Codeine #3 Tablet (Acetaminophen With Codeine) 1 Each Tablet 1 Each PO PRN Q4HRS PRN I have reviewed the current psychotropics carefully including drug interactions. Risk benefit ratio favors no change other than as noted in my dictated progress note. Diagnosis: Problems: (1) Medical clearance for psychiatric admission (2) Anxiety disorder (3) Major depressive disorder, recurrent episode (4) Impulse control disorder (5) Schizoaffective disorder, chronic condition with acute exacerbation (6) Mild cognitive disorder LEENA CHINCHILLA MD Jan 11, 2019 23:04
[2019-01-12] MEDS: LEVOTHYROXINE 25 MCG TABLET. PO SCH (05:03)
[2019-01-12 06:13] VITALS: BP 100/63
[2019-01-12] MEDS: risperiDONE 2 MG TABLET. PO SCH ×2 (07:26→19:43)
[2019-01-12] MEDS: POLYETHYLENE GLYCOL 3350 17 GM PACKET. PO SCH (07:26)
[2019-01-12] MEDS: LACTULOSE 20 GM/30 ML SOLUTION. PO SCH ×2 (07:26→19:44)
[2019-01-12] MEDS: FAMOTIDINE 20 MG TABLET PO SCH ×2 (07:27→19:43)
[2019-01-12] MEDS: LORazepam 0.5 MG TABLET PO SCH ×3 (07:27→19:43)
[2019-01-12] MEDS: DEXTROMETHORPHAN/QUINIDINE 20/10MG CAPSULE. PO SCH ×2 (07:27→20:00)
[2019-01-12] MEDS: DIVALPROEX 125 MG CAP.SPRINK PO SCH ×2 (07:27→19:42)
[2019-01-12] MEDS: MULTIVITAMIN with MINERAL TABLET. PO SCH (07:27)
[2019-01-12] MEDS: ESTRADIOL 1 MG TABLET PO SCH (07:27)
[2019-01-12] MEDS: DORZOLAMIDE/TIMOLOL 2%/0.5% OPHTH SOLUTION 10ML BOTTLE. OD SCH ×2 (07:27→20:00)
[2019-01-12 16:37] VITALS: BP 98/64
[2019-01-12] MEDS: SENNOSIDES/DOCUSATE 8.6/50MG TABLET. PO SCH (19:43)
[2019-01-12] MEDS: TAMSULOSIN 0.4 MG CAP.ER.24H. PO SCH (19:46)
[2019-01-12] MEDS: traZODone 50 MG TABLET. PO SCH (19:46)
[2019-01-12] MEDS: LATANOPROST 0.005% OPHTH SOLUTION 2.5ML BOTTLE. OD SCH (19:59)
--- NOTE | 2019-01-12 22:38 | PDOC ---
Exam Note: Adrián Note: Please also refer to the separate dictated note~for this date of service dictated separately.~Patient seen individually. Discussed the patient with Nursing staff reviewed the chart.~Reviewed interim history and current functioning. Reviewed vital signs,~Labs/ Radiology~and current medications noted below. Continue current treatment with the changes noted in the dictated addendum note Assessment: Vital Signs: Vital Signs Date Time Temp Pulse Resp B/P (MAP) Pulse Ox O2 Delivery O2 Flow Rate FiO2 01/12/19 16:37 97.4 72 16 98/64 (75) 98 Room Air I&O Intake and Output 01/12/19 07:00 Intake Total 1080 ml Balance 1080 ml Intake Oral 1080 ml Current Medications: Meds: Current Medications Acetaminophen (Tylenol) 650 mg PRN Q4HRS PRN PO FEVER; Start 01/08/19 at 21:30 ; Stop 01/09/19 at 21:29; Status Cancel Acetaminophen (Tylenol) 650 mg PRN Q6HRS PRN PO PAIN / TEMP; Start 01/09/19 at 00:30; Status Cancel Multi-Ingredient Ointment (Analgesic [place]) 1 she PRN QID PRN TP MUSCLE PAIN; Start 01/09/19 at 00:30 Al Hydroxide/Mg Hydroxide (Mylanta Plus Xs) 15 ml PRN AFTMEALHC PRN PO DYSPEPSIA; Start 01/09/19 at 00:30 Magnesium Hydroxide (Milk Of Magnesia) 2,400 mg PRN QHS PRN PO CONSTIPATION; Start 01/09/19 at 00:30 Divalproex Sodium (Depakote Sprinkles) 125 mg BID PO Last administered on at 07:52; Start 01/09/19 at 09:00; Stop 01/10/19 at 17:11; Status DC Estradiol (Estrace) 0.5 mg DAILY PO Last administered on 01/12/19at 07:27; Start 01/09/19 at 09:00 Haloperidol Lactate (Haldol) 5 mg PRN DAILY PRN IM ANXIETY / AGITATION; Start 01/09/19 at 02:15; Stop 01/12/19 at 16:48; Status DC Lorazepam (Ativan) 0.5 mg PRN DAILY PRN PO ANXIETY; Start 01/09/19 at 02:15 Lorazepam (Ativan) 0.5 mg TID PO Last administered on 01/12/19 19:43; Start at 09:00 Risperidone (RisperDAL) 2 mg BID PO Last administered on 01/12/19 19:43; Start 01/09/19 at 09:00 Acetaminophen (Tylenol) 650 mg PRN Q6HRS PRN PO PAIN / TEMP; Start 01/09/19 at 02:15 Vitamin D (Vitamin D3) 50,000 unit WEEKLY PO Last administered on 01/09/19 09: 05; Start 01/09/19 at 09:00 Dextromethorphan/ Quinidine (Nuedexta 20-10 Mg Capsule) 1 cap BID PO Last administered on 01/12/19 20:00; Start 01/09/19 at 09:00 Senna/Docusate Sodium (Senna Plus) 1 tab HS PO Last administered on 01/12/19 19:43; Start 01/09/19 at 21:00 Tamsulosin HCl (Flomax) 0.4 mg HS PO Last administered on 01/12/19 19:46; Start 01/09/19 at 21:00 Acetaminophen/ Codeine Phosphate (Tylenol #3) 1 tab PRN Q4HRS PRN PO PAIN; Start 01/09/19 at 02:15 Acetaminophen/ Codeine Phosphate (Tylenol #3) 2 tab PRN Q4HRS PRN PO PAIN; Start 01/09/19 at 02:15 Non-Formulary Medication (Amino Acids/ Protein Hydrolys (Pro-Stat [facility] Liquid Packet)) 30 ml DAILY PO ; Start 01/09/19 at 09:00; Status UNV Non-Formulary Medication (Carboxymethylcellulos/ Glycerin (Refresh Optive Eye Drops)) 1 drop HS OD ; Start 01/09/19 at 21:00; Stop 01/09/19 at 21:00; Status DC Artificial Tears (Refresh Classic) 1 drop QID OU ; Start 01/09/19 at 09:00; Stop 01/09/19 at 09:00; Status DC Dorzolamide/ Timolol (Cosopt) 1 drop BID OD Last administered on 01/12/19 20: 00; Start 01/09/19 at 09:00 Lactulose (Lactulose) 20 gm BID PO Last administered on 01/12/19 19:44; Start 01/09/19 at 09:00 Latanoprost (Xalatan) 1 drop QHS OD Last administered on 01/12/19 19:59; Start 01/09/19 at 21:00 Levothyroxine Sodium (Synthroid) 25 mcg DAILY06 PO Last administered on 05:03; Start 01/09/19 at 06:00 Multivitamins/ Calcium (Thera-M Plus) 1 tab DAILY PO Last administered on 07:27; Start 01/09/19 at 09:00 Polyethylene Glycol (miraLAX) 17 gm DAILY PO Last administered on 01/12/19 07: 26; Start 01/09/19 at 09:00 Famotidine (Pepcid) 20 mg BID PO Last administered on 01/12/19 19:43; Start at 09:00 Erythromycin (Romycin) 1 inch DAILY OS Last administered on 01/10/19 07:53; Start 01/09/19 at 09:00; Stop 01/10/19 at 10:32; Status DC Divalproex Sodium (Depakote Sprinkles) 250 mg BID PO Last administered on 19:42; Start 01/10/19 at 21:00 Trazodone HCl (Desyrel) 50 mg QHS PO Last administered on 01/12/19 19:46; Start 01/10/19 at 21:00 Trazodone HCl (Desyrel) 50 mg PRN QHS PRN PO INSOMNIA; Start 01/10/19 at 17:15 Active Scripts Active Reported Ranitidine Hcl 150 Mg Tablet 150 Mg PO BID Tylenol (Acetaminophen) 325 Mg Tablet 650 Mg PO PRN Q6HRS Flomax (Tamsulosin Hcl) 0.4 Mg Cap.er.24h 0.4 Mg PO HS Senna Plus Tablet (Sennosides/Docusate Sodium) 1 Each Tablet 1 Each PO HS Risperidone 2 Mg Tablet 2 Mg PO BID Refresh Optive Eye Drops (Carboxymethylcellulos/Glycerin) 15 Ml Drops 1 Drop OU QID Refresh Optive Eye Drops (Carboxymethylcellulos/Glycerin) 15 Ml Drops 1 Drop OD HS Pro-Stat Awc Liquid Packet (Amino Acids/Protein Hydrolys) 30 Ml Liquid.pkt 30 Ml PO DAILY Miralax (Polyethylene Glycol 3350) 17 Gm Powd.pack 17 Gm PO DAILY Nuedexta 20-10 Mg Capsule (Dextromethorphan Hbr/Quinidine) 1 Each Capsule 1 Each PO BID Multivitamins (Multivitamin) 1 Each Tablet 1 Each PO DAILY Levothyroxine Sodium 25 Mcg Tablet 25 Mcg PO DAILYAC Latanoprost 2.5 Ml Drops 1 Drop OD QHS Lactulose 10 Gm/15 Ml Solution 20 Gm PO BID Haloperidol Lactate 5 Mg/1 Ml Vial 5 Mg IM PRN DAILY PRN Estradiol 0.5 Mg Tablet 0.5 Mg PO DAILY Erythromycin (Erythromycin Base) 1 Gm Oint...g. 1 She OS BID Dorzolamide-Timolol Eye Drops (Dorzolamide Hcl/Timolol Maleat) 10 Ml Drops 1 Drop OD BID Depakote (Divalproex Sodium) 500 Mg Tablet.dr 125 Mg PO BID D3-50 (Cholecalciferol (Vitamin D3)) 50,000 Unit Capsule 50,000 Unit PO WEEKLY SUNDAY Lorazepam 0.5 Mg Tablet 0.5 Mg PO PRN DAILY PRN Lorazepam 0.5 Mg Tablet 0.5 Mg PO TID Tylenol With Codeine #3 Tablet (Acetaminophen With Codeine) 1 Each Tablet 2 Each PO PRN Q4HRS PRN Tylenol With Codeine #3 Tablet (Acetaminophen With Codeine) 1 Each Tablet 1 Each PO PRN Q4HRS PRN I have reviewed the current psychotropics carefully including drug interactions. Risk benefit ratio favors no change other than as noted in my dictated progress note. Diagnosis: Problems: (1) Medical clearance for psychiatric admission (2) Anxiety disorder (3) Major depressive disorder, recurrent episode (4) Impulse control disorder (5) Schizoaffective disorder, chronic condition with acute exacerbation (6) Mild cognitive disorder LEENA CHINCHILLA MD Jan 12, 2019 22:38
[2019-01-13] MEDS: LEVOTHYROXINE 25 MCG TABLET. PO SCH (05:12)
[2019-01-13 05:46] VITALS: BP 109/72
[2019-01-13] MEDS: POLYETHYLENE GLYCOL 3350 17 GM PACKET. PO SCH (07:40)
[2019-01-13] MEDS: LACTULOSE 20 GM/30 ML SOLUTION. PO SCH ×2 (07:40→19:27)
[2019-01-13] MEDS: DORZOLAMIDE/TIMOLOL 2%/0.5% OPHTH SOLUTION 10ML BOTTLE. OD SCH ×2 (07:40→19:33)
[2019-01-13] MEDS: risperiDONE 2 MG TABLET. PO SCH ×2 (07:40→19:28)
[2019-01-13 07:41] LABS: BASO # 0.1 x10^3/uL (0.0-0.2); BASO % 1 % (0-3); EOS # 0.1 x10^3/uL (0.0-0.7); EOS % 2 % (0-3); HEMATOCRIT 36.8 % (39.0-53.0); HEMOGLOBIN 12.3 g/dL (13.0-17.5); LYMPH % 19 % (24-48); MEAN CORPUSCULAR HEMOGLOBIN 29 pg (25-35); MEAN CORPUSCULAR HGB CONC 33 g/dL (31-37); MEAN CORPUSCULAR VOLUME 87 fL (79-100); MONO # 0.7 x10^3/uL (0.0-1.1); MONO % 12 % (0-9); NEUT # 3.7 x10^3uL (1.8-7.7); NEUT % 66 % (31-73); PLATELET COUNT 271 x10^3/uL (140-400); RED BLOOD COUNT 4.22 x10^6/uL (4.30-5.70); RED CELL DISTRIBUTION WIDTH 13.7 % (11.5-14.5); WHITE BLOOD COUNT 5.5 x10^3/uL (4.0-11.0)
[2019-01-13] MEDS: MULTIVITAMIN with MINERAL TABLET. PO SCH (07:41)
[2019-01-13] MEDS: DEXTROMETHORPHAN/QUINIDINE 20/10MG CAPSULE. PO SCH ×2 (07:41→19:33)
[2019-01-13] MEDS: DIVALPROEX 125 MG CAP.SPRINK PO SCH ×2 (07:41→19:28)
[2019-01-13] MEDS: FAMOTIDINE 20 MG TABLET PO SCH ×2 (07:41→19:27)
[2019-01-13] MEDS: ESTRADIOL 1 MG TABLET PO SCH (07:44)
[2019-01-13] MEDS: LORazepam 0.5 MG TABLET PO SCH ×3 (07:44→19:28)
[2019-01-13 07:51] LABS: ALBUMIN 3.2 g/dL (3.4-5.0); ALK PHOS 58 U/L (46-116); ALT (SGPT) 19 U/L (16-63); ANION GAP 6 (6-14); AST (SGOT) 19 U/L (15-37); BLOOD UREA NITROGEN 26 mg/dL (8-26); BUN/CREATININE RATIO 29 (6-20); CALCIUM 9.3 mg/dL (8.5-10.1); CARBON DIOXIDE 32 mmol/L (21-32); CHLORIDE 106 mmol/L (98-107); CREATININE 0.9 mg/dL (0.7-1.3); GFR 84.7; GLUCOSE 89 mg/dL (70-99); POTASSIUM 4.3 mmol/L (3.5-5.1); SODIUM 144 mmol/L (136-145); TOTAL BILIRUBIN 0.5 mg/dL (0.2-1.0); TOTAL PROTEIN 6.3 g/dL (6.4-8.2)
[2019-01-13 08:02] LABS: VAL ACID 32 mcg/mL (50-100)
[2019-01-13 16:56] VITALS: BP 103/66
[2019-01-13] MEDS: traZODone 50 MG TABLET. PO SCH (19:28)
[2019-01-13] MEDS: SENNOSIDES/DOCUSATE 8.6/50MG TABLET. PO SCH (19:28)
[2019-01-13] MEDS: TAMSULOSIN 0.4 MG CAP.ER.24H. PO SCH (19:33)
[2019-01-13] MEDS: LATANOPROST 0.005% OPHTH SOLUTION 2.5ML BOTTLE. OD SCH (19:33)
--- NOTE | 2019-01-13 20:17 | PN ---
DATE: 01/11/2019 PSYCHIATRIC PROGRESS NOTE This late entry 01/11/2019 covers elements not covered in my initial note. SUBJECTIVE: I met with the patient late in the evening. The patient slept 6 hours previous night. He remains somewhat paranoid, psychotic. Reviewed his history and past psychiatric records, received from the sister. He has been treated on Risperdal, Haldol in the past along with Depakote and Zyprexa, was in the [facility] prior to transfer to [facility] given some negative reports family received about the earlier correction. REVIEW OF SYSTEMS: No CV, , pulmonary, eye system symptoms on review. MENTAL STATUS EXAMINATION: Oriented to himself and situation. Speech, low in rate and rhythm, low in volume, often responses monosyllabic. Abstraction fair, computation impaired, language function intact. Mood and affect somewhat withdrawn. Still psychotic, but better than before. LABORATORY DATA: Reviewed. IMPRESSION: Unchanged from initial note. PLAN: No change from initial note. LEENA CHINCHILLA MD DR: MARY/gage JOB#: [id number] / [id number]
--- NOTE | 2019-01-13 20:23 | PN ---
DATE: 01/12/2019 PSYCHIATRIC PROGRESS NOTE This late entry 01/12/2019 covers elements not covered in my initial note. SUBJECTIVE: I met with the patient in the evening. The patient slept 6-1/4 hours previous night. I have reviewed some records from [facility] as well. He does have some pseudobulbar affect, but less psychotic. REVIEW OF SYSTEMS: No CV, , pulmonary, eye system symptoms on review. MENTAL STATUS EXAMINATION: Oriented to himself and situation. Eye contact is poor. Speech, often responses monosyllabic. Abstraction fair, computation impaired, language function intact, attention span short. Mood and affect somewhat withdrawn. LABORATORY DATA: Reviewed. IMPRESSION: Unchanged from initial note. PLAN: Stop the Haldol IM p.r.n. Maintain Ativan scheduled and p.r.n. Depakote, we will adjust to reach therapeutic level. Maintain Risperdal, Nuedexta, trazodone. LEENA CHINCHILLA MD DR: MARY/gage JOB#: [id number] / [id number]
--- NOTE | 2019-01-13 22:38 | PDOC ---
Exam Note: Adrián Note: Please also refer to the separate dictated note~for this date of service dictated separately.~Patient seen individually. Discussed the patient with Nursing staff reviewed the chart.~Reviewed interim history and current functioning. Reviewed vital signs,~Labs/ Radiology~and current medications noted below. Continue current treatment with the changes noted in the dictated addendum note Assessment: Vital Signs: Vital Signs Date Time Temp Pulse Resp B/P (MAP) Pulse Ox O2 Delivery O2 Flow Rate FiO2 01/13/19 16:56 97.2 64 16 103/66 (78) 94 01/13/19 05:46 Room Air I&O Intake and Output 01/13/19 07:00 Intake Total 840 ml Balance 840 ml Intake Oral 840 ml Labs: Laboratory Tests Test 01/13/19 07:15 White Blood Count 5.5 x10^3/uL (4.0-11.0) Red Blood Count 4.22 x10^6/uL (4.30-5.70) L Hemoglobin 12.3 g/dL (13.0-17.5) L Hematocrit 36.8 % (39.0-53.0) L Mean Corpuscular Volume 87 fL (79-100) Mean Corpuscular Hemoglobin 29 pg (25-35) Mean Corpuscular Hemoglobin Concent 33 g/dL (31-37) Red Cell Distribution Width 13.7 % (11.5-14.5) Platelet Count 271 x10^3/uL (140-400) Neutrophils (%) (Auto) 66 % (31-73) Lymphocytes (%) (Auto) 19 % (24-48) L Monocytes (%) (Auto) 12 % (0-9) H Eosinophils (%) (Auto) 2 % (0-3) Basophils (%) (Auto) 1 % (0-3) Neutrophils # (Auto) 3.7 x10^3uL (1.8-7.7) Lymphocytes # (Auto) 1.0 x10^3/uL (1.0-4.8) Monocytes # (Auto) 0.7 x10^3/uL (0.0-1.1) Eosinophils # (Auto) 0.1 x10^3/uL (0.0-0.7) Basophils # (Auto) 0.1 x10^3/uL (0.0-0.2) Sodium Level 144 mmol/L (136-145) Potassium Level 4.3 mmol/L (3.5-5.1) Chloride Level 106 mmol/L (98-107) Carbon Dioxide Level 32 mmol/L (21-32) Anion Gap 6 (6-14) Blood Urea Nitrogen 26 mg/dL (8-26) Creatinine 0.9 mg/dL (0.7-1.3) Estimated GFR (Cockcroft-Gault) 84.7 BUN/Creatinine Ratio 29 (6-20) H Glucose Level 89 mg/dL (70-99) Calcium Level 9.3 mg/dL (8.5-10.1) Total Bilirubin 0.5 mg/dL (0.2-1.0) Aspartate Amino Transferase (AST) 19 U/L (15-37) Alanine Aminotransferase (ALT) 19 U/L (16-63) Alkaline Phosphatase 58 U/L (46-116) Total Protein 6.3 g/dL (6.4-8.2) L Albumin 3.2 g/dL (3.4-5.0) L Albumin/Globulin Ratio 1.0 (1.0-1.7) Valproic Acid Level 32 mcg/mL (50-100) L Valproic Acid Last Dose Date 01/12/19 Valproic Acid Last Dose Time 2100 Current Medications: Meds: Current Medications Acetaminophen (Tylenol) 650 mg PRN Q4HRS PRN PO FEVER; Start 01/08/19 at 21:30 ; Stop 01/09/19 at 21:29; Status Cancel Acetaminophen (Tylenol) 650 mg PRN Q6HRS PRN PO PAIN / TEMP; Start 01/09/19 at 00:30; Status Cancel Multi-Ingredient Ointment (Analgesic [place]) 1 she PRN QID PRN TP MUSCLE PAIN; Start 01/09/19 at 00:30 Al Hydroxide/Mg Hydroxide (Mylanta Plus Xs) 15 ml PRN AFTMEALHC PRN PO DYSPEPSIA; Start 01/09/19 at 00:30 Magnesium Hydroxide (Milk Of Magnesia) 2,400 mg PRN QHS PRN PO CONSTIPATION; Start 01/09/19 at 00:30 Divalproex Sodium (Depakote Sprinkles) 125 mg BID PO Last administered on at 07:52; Start 01/09/19 at 09:00; Stop 01/10/19 at 17:11; Status DC Estradiol (Estrace) 0.5 mg DAILY PO Last administered on 01/13/19 07:44; Start 01/09/19 at 09:00 Haloperidol Lactate (Haldol) 5 mg PRN DAILY PRN IM ANXIETY / AGITATION; Start 01/09/19 at 02:15; Stop 01/12/19 at 16:48; Status DC Lorazepam (Ativan) 0.5 mg PRN DAILY PRN PO ANXIETY; Start 01/09/19 at 02:15 Lorazepam (Ativan) 0.5 mg TID PO Last administered on 01/13/19 19:28; Start at 09:00 Risperidone (RisperDAL) 2 mg BID PO Last administered on 01/13/19 19:28; Start 01/09/19 at 09:00 Acetaminophen (Tylenol) 650 mg PRN Q6HRS PRN PO PAIN / TEMP; Start 01/09/19 at 02:15 Vitamin D (Vitamin D3) 50,000 unit WEEKLY PO Last administered on 01/09/19 09: 05; Start 01/09/19 at 09:00 Dextromethorphan/ Quinidine (Nuedexta 20-10 Mg Capsule) 1 cap BID PO Last administered on 01/13/19 19:33; Start 01/09/19 at 09:00 Senna/Docusate Sodium (Senna Plus) 1 tab HS PO Last administered on 01/13/19 19:28; Start 01/09/19 at 21:00 Tamsulosin HCl (Flomax) 0.4 mg HS PO Last administered on 01/13/19 19:33; Start 01/09/19 at 21:00 Acetaminophen/ Codeine Phosphate (Tylenol #3) 1 tab PRN Q4HRS PRN PO PAIN; Start 01/09/19 at 02:15 Acetaminophen/ Codeine Phosphate (Tylenol #3) 2 tab PRN Q4HRS PRN PO PAIN; Start 01/09/19 at 02:15 Non-Formulary Medication (Amino Acids/ Protein Hydrolys (Pro-Stat [facility] Liquid Packet)) 30 ml DAILY PO ; Start 01/09/19 at 09:00; Status UNV Non-Formulary Medication (Carboxymethylcellulos/ Glycerin (Refresh Optive Eye Drops)) 1 drop HS OD ; Start 01/09/19 at 21:00; Stop 01/09/19 at 21:00; Status DC Artificial Tears (Refresh Classic) 1 drop QID OU ; Start 01/09/19 at 09:00; Stop 01/09/19 at 09:00; Status DC Dorzolamide/ Timolol (Cosopt) 1 drop BID OD Last administered on 01/13/19 19: 33; Start 01/09/19 at 09:00 Lactulose (Lactulose) 20 gm BID PO Last administered on 01/13/19 19:27; Start 01/09/19 at 09:00 Latanoprost (Xalatan) 1 drop QHS OD Last administered on 01/13/19 19:33; Start 01/09/19 at 21:00 Levothyroxine Sodium (Synthroid) 25 mcg DAILY06 PO Last administered on 05:12; Start 01/09/19 at 06:00 Multivitamins/ Calcium (Thera-M Plus) 1 tab DAILY PO Last administered on 07:41; Start 01/09/19 at 09:00 Polyethylene Glycol (miraLAX) 17 gm DAILY PO Last administered on 01/13/19 07: 40; Start 01/09/19 at 09:00 Famotidine (Pepcid) 20 mg BID PO Last administered on 01/13/19 19:27; Start at 09:00 Erythromycin (Romycin) 1 inch DAILY OS Last administered on 01/10/19 07:53; Start 01/09/19 at 09:00; Stop 01/10/19 at 10:32; Status DC Divalproex Sodium (Depakote Sprinkles) 250 mg BID PO Last administered on 07:41; Start 01/10/19 at 21:00; Stop 01/13/19 at 18:48; Status DC Trazodone HCl (Desyrel) 50 mg QHS PO Last administered on 01/13/19 19:28; Start 01/10/19 at 21:00 Trazodone HCl (Desyrel) 50 mg PRN QHS PRN PO INSOMNIA; Start 01/10/19 at 17:15 Divalproex Sodium (Depakote Sprinkles) 500 mg BID PO Last administered on at 19:28; Start 01/13/19 at 21:00 Active Scripts Active Reported Ranitidine Hcl 150 Mg Tablet 150 Mg PO BID Tylenol (Acetaminophen) 325 Mg Tablet 650 Mg PO PRN Q6HRS Flomax (Tamsulosin Hcl) 0.4 Mg Cap.er.24h 0.4 Mg PO HS Senna Plus Tablet (Sennosides/Docusate Sodium) 1 Each Tablet 1 Each PO HS Risperidone 2 Mg Tablet 2 Mg PO BID Refresh Optive Eye Drops (Carboxymethylcellulos/Glycerin) 15 Ml Drops 1 Drop OU QID Refresh Optive Eye Drops (Carboxymethylcellulos/Glycerin) 15 Ml Drops 1 Drop OD HS Pro-Stat Awc Liquid Packet (Amino Acids/Protein Hydrolys) 30 Ml Liquid.pkt 30 Ml PO DAILY Miralax (Polyethylene Glycol 3350) 17 Gm Powd.pack 17 Gm PO DAILY Nuedexta 20-10 Mg Capsule (Dextromethorphan Hbr/Quinidine) 1 Each Capsule 1 Each PO BID Multivitamins (Multivitamin) 1 Each Tablet 1 Each PO DAILY Levothyroxine Sodium 25 Mcg Tablet 25 Mcg PO DAILYAC Latanoprost 2.5 Ml Drops 1 Drop OD QHS Lactulose 10 Gm/15 Ml Solution 20 Gm PO BID Haloperidol Lactate 5 Mg/1 Ml Vial 5 Mg IM PRN DAILY PRN Estradiol 0.5 Mg Tablet 0.5 Mg PO DAILY Erythromycin (Erythromycin Base) 1 Gm Oint...g. 1 She OS BID Dorzolamide-Timolol Eye Drops (Dorzolamide Hcl/Timolol Maleat) 10 Ml Drops 1 Drop OD BID Depakote (Divalproex Sodium) 500 Mg Tablet.dr 125 Mg PO BID D3-50 (Cholecalciferol (Vitamin D3)) 50,000 Unit Capsule 50,000 Unit PO WEEKLY SUNDAY Lorazepam 0.5 Mg Tablet 0.5 Mg PO PRN DAILY PRN Lorazepam 0.5 Mg Tablet 0.5 Mg PO TID Tylenol With Codeine #3 Tablet (Acetaminophen With Codeine) 1 Each Tablet 2 Each PO PRN Q4HRS PRN Tylenol With Codeine #3 Tablet (Acetaminophen With Codeine) 1 Each Tablet 1 Each PO PRN Q4HRS PRN I have reviewed the current psychotropics carefully including drug interactions. Risk benefit ratio favors no change other than as noted in my dictated progress note. Diagnosis: Problems: (1) Medical clearance for psychiatric admission (2) Anxiety disorder (3) Major depressive disorder, recurrent episode (4) Impulse control disorder (5) Schizoaffective disorder, chronic condition with acute exacerbation (6) Mild cognitive disorder LEENA CHINCHILLA MD Jan 13, 2019 22:38
[2019-01-14] MEDS: LEVOTHYROXINE 25 MCG TABLET. PO SCH (05:22)
[2019-01-14 06:02] VITALS: BP 98/63
[2019-01-14] MEDS: DEXTROMETHORPHAN/QUINIDINE 20/10MG CAPSULE. PO SCH ×2 (08:56→19:18)
[2019-01-14] MEDS: LACTULOSE 20 GM/30 ML SOLUTION. PO SCH ×2 (08:56→19:15)
[2019-01-14] MEDS: POLYETHYLENE GLYCOL 3350 17 GM PACKET. PO SCH (08:56)
[2019-01-14] MEDS: FAMOTIDINE 20 MG TABLET PO SCH ×2 (08:56→19:14)
[2019-01-14] MEDS: DIVALPROEX 125 MG CAP.SPRINK PO SCH ×2 (08:56→19:13)
[2019-01-14] MEDS: MULTIVITAMIN with MINERAL TABLET. PO SCH (08:56)
[2019-01-14] MEDS: risperiDONE 2 MG TABLET. PO SCH ×2 (08:56→19:14)
[2019-01-14] MEDS: ESTRADIOL 1 MG TABLET PO SCH (08:56)
[2019-01-14] MEDS: LORazepam 0.5 MG TABLET PO SCH ×3 (08:57→19:18)
[2019-01-14] MEDS: DORZOLAMIDE/TIMOLOL 2%/0.5% OPHTH SOLUTION 10ML BOTTLE. OD SCH ×2 (08:57→19:18)
[2019-01-14 16:14] VITALS: BP 102/64
[2019-01-14] MEDS: traZODone 50 MG TABLET. PO SCH (19:13)
[2019-01-14] MEDS: TAMSULOSIN 0.4 MG CAP.ER.24H. PO SCH (19:14)
[2019-01-14] MEDS: SENNOSIDES/DOCUSATE 8.6/50MG TABLET. PO SCH (19:14)
[2019-01-14] MEDS: LATANOPROST 0.005% OPHTH SOLUTION 2.5ML BOTTLE. OD SCH (19:18)
--- NOTE | 2019-01-14 22:55 | PDOC ---
Exam Note: Adrián Note: Please also refer to the separate dictated note~for this date of service dictated separately.~Patient seen individually. Discussed the patient with Nursing staff reviewed the chart.~Reviewed interim history and current functioning. Reviewed vital signs,~Labs/ Radiology~and current medications noted below. Continue current treatment with the changes noted in the dictated addendum note Assessment: Vital Signs: Vital Signs Date Time Temp Pulse Resp B/P (MAP) Pulse Ox O2 Delivery O2 Flow Rate FiO2 01/14/19 16:14 98.0 68 20 102/64 (77) 97 Room Air I&O Intake and Output 01/14/19 07:00 Intake Total 1400 ml Balance 1400 ml Intake Oral 1400 ml Current Medications: Meds: Current Medications Acetaminophen (Tylenol) 650 mg PRN Q4HRS PRN PO FEVER; Start 01/08/19 at 21:30 ; Stop 01/09/19 at 21:29; Status Cancel Acetaminophen (Tylenol) 650 mg PRN Q6HRS PRN PO PAIN / TEMP; Start 01/09/19 at 00:30; Status Cancel Multi-Ingredient Ointment (Analgesic [place]) 1 she PRN QID PRN TP MUSCLE PAIN; Start 01/09/19 at 00:30 Al Hydroxide/Mg Hydroxide (Mylanta Plus Xs) 15 ml PRN AFTMEALHC PRN PO DYSPEPSIA; Start 01/09/19 at 00:30 Magnesium Hydroxide (Milk Of Magnesia) 2,400 mg PRN QHS PRN PO CONSTIPATION; Start 01/09/19 at 00:30 Divalproex Sodium (Depakote Sprinkles) 125 mg BID PO Last administered on at 07:52; Start 01/09/19 at 09:00; Stop 01/10/19 at 17:11; Status DC Estradiol (Estrace) 0.5 mg DAILY PO Last administered on 01/14/19at 08:56; Start 01/09/19 at 09:00 Haloperidol Lactate (Haldol) 5 mg PRN DAILY PRN IM ANXIETY / AGITATION; Start 01/09/19 at 02:15; Stop 01/12/19 at 16:48; Status DC Lorazepam (Ativan) 0.5 mg PRN DAILY PRN PO ANXIETY; Start 01/09/19 at 02:15 Lorazepam (Ativan) 0.5 mg TID PO Last administered on 01/14/19 19:18; Start at 09:00 Risperidone (RisperDAL) 2 mg BID PO Last administered on 01/14/19 19:14; Start 01/09/19 at 09:00 Acetaminophen (Tylenol) 650 mg PRN Q6HRS PRN PO PAIN / TEMP; Start 01/09/19 at 02:15 Vitamin D (Vitamin D3) 50,000 unit WEEKLY PO Last administered on 01/09/19 09: 05; Start 01/09/19 at 09:00 Dextromethorphan/ Quinidine (Nuedexta 20-10 Mg Capsule) 1 cap BID PO Last administered on 01/14/19 19:18; Start 01/09/19 at 09:00 Senna/Docusate Sodium (Senna Plus) 1 tab HS PO Last administered on 01/14/19 19:14; Start 01/09/19 at 21:00 Tamsulosin HCl (Flomax) 0.4 mg HS PO Last administered on 01/14/19 19:14; Start 01/09/19 at 21:00 Acetaminophen/ Codeine Phosphate (Tylenol #3) 1 tab PRN Q4HRS PRN PO PAIN; Start 01/09/19 at 02:15 Acetaminophen/ Codeine Phosphate (Tylenol #3) 2 tab PRN Q4HRS PRN PO PAIN; Start 01/09/19 at 02:15 Non-Formulary Medication (Amino Acids/ Protein Hydrolys (Pro-Stat [facility] Liquid Packet)) 30 ml DAILY PO ; Start 01/09/19 at 09:00; Status UNV Non-Formulary Medication (Carboxymethylcellulos/ Glycerin (Refresh Optive Eye Drops)) 1 drop HS OD ; Start 01/09/19 at 21:00; Stop 01/09/19 at 21:00; Status DC Artificial Tears (Refresh Classic) 1 drop QID OU ; Start 01/09/19 at 09:00; Stop 01/09/19 at 09:00; Status DC Dorzolamide/ Timolol (Cosopt) 1 drop BID OD Last administered on 01/14/19 19: 18; Start 01/09/19 at 09:00 Lactulose (Lactulose) 20 gm BID PO Last administered on 01/14/19 19:15; Start 01/09/19 at 09:00 Latanoprost (Xalatan) 1 drop QHS OD Last administered on 01/14/19 19:18; Start 01/09/19 at 21:00 Levothyroxine Sodium (Synthroid) 25 mcg DAILY06 PO Last administered on 05:22; Start 01/09/19 at 06:00 Multivitamins/ Calcium (Thera-M Plus) 1 tab DAILY PO Last administered on 08:56; Start 01/09/19 at 09:00 Polyethylene Glycol (miraLAX) 17 gm DAILY PO Last administered on 01/14/19 08: 56; Start 01/09/19 at 09:00 Famotidine (Pepcid) 20 mg BID PO Last administered on 01/14/19 19:14; Start at 09:00 Erythromycin (Romycin) 1 inch DAILY OS Last administered on 01/10/19 07:53; Start 01/09/19 at 09:00; Stop 01/10/19 at 10:32; Status DC Divalproex Sodium (Depakote Sprinkles) 250 mg BID PO Last administered on 07:41; Start 01/10/19 at 21:00; Stop 01/13/19 at 18:48; Status DC Trazodone HCl (Desyrel) 50 mg QHS PO Last administered on 01/14/19 19:13; Start 01/10/19 at 21:00 Trazodone HCl (Desyrel) 50 mg PRN QHS PRN PO INSOMNIA; Start 01/10/19 at 17:15 Divalproex Sodium (Depakote Sprinkles) 500 mg BID PO Last administered on 19:13; Start 01/13/19 at 21:00 Active Scripts Active Reported Ranitidine Hcl 150 Mg Tablet 150 Mg PO BID Tylenol (Acetaminophen) 325 Mg Tablet 650 Mg PO PRN Q6HRS Flomax (Tamsulosin Hcl) 0.4 Mg Cap.er.24h 0.4 Mg PO HS Senna Plus Tablet (Sennosides/Docusate Sodium) 1 Each Tablet 1 Each PO HS Risperidone 2 Mg Tablet 2 Mg PO BID Refresh Optive Eye Drops (Carboxymethylcellulos/Glycerin) 15 Ml Drops 1 Drop OU QID Refresh Optive Eye Drops (Carboxymethylcellulos/Glycerin) 15 Ml Drops 1 Drop OD HS Pro-Stat Awc Liquid Packet (Amino Acids/Protein Hydrolys) 30 Ml Liquid.pkt 30 Ml PO DAILY Miralax (Polyethylene Glycol 3350) 17 Gm Powd.pack 17 Gm PO DAILY Nuedexta 20-10 Mg Capsule (Dextromethorphan Hbr/Quinidine) 1 Each Capsule 1 Each PO BID Multivitamins (Multivitamin) 1 Each Tablet 1 Each PO DAILY Levothyroxine Sodium 25 Mcg Tablet 25 Mcg PO DAILYAC Latanoprost 2.5 Ml Drops 1 Drop OD QHS Lactulose 10 Gm/15 Ml Solution 20 Gm PO BID Haloperidol Lactate 5 Mg/1 Ml Vial 5 Mg IM PRN DAILY PRN Estradiol 0.5 Mg Tablet 0.5 Mg PO DAILY Erythromycin (Erythromycin Base) 1 Gm Oint...g. 1 She OS BID Dorzolamide-Timolol Eye Drops (Dorzolamide Hcl/Timolol Maleat) 10 Ml Drops 1 Drop OD BID Depakote (Divalproex Sodium) 500 Mg Tablet.dr 125 Mg PO BID D3-50 (Cholecalciferol (Vitamin D3)) 50,000 Unit Capsule 50,000 Unit PO WEEKLY SUNDAY Lorazepam 0.5 Mg Tablet 0.5 Mg PO PRN DAILY PRN Lorazepam 0.5 Mg Tablet 0.5 Mg PO TID Tylenol With Codeine #3 Tablet (Acetaminophen With Codeine) 1 Each Tablet 2 Each PO PRN Q4HRS PRN Tylenol With Codeine #3 Tablet (Acetaminophen With Codeine) 1 Each Tablet 1 Each PO PRN Q4HRS PRN I have reviewed the current psychotropics carefully including drug interactions. Risk benefit ratio favors no change other than as noted in my dictated progress note. Diagnosis: Problems: (1) Medical clearance for psychiatric admission (2) Anxiety disorder (3) Major depressive disorder, recurrent episode (4) Impulse control disorder (5) Schizoaffective disorder, chronic condition with acute exacerbation (6) Mild cognitive disorder LEENA CHINCHILLA MD Jan 14, 2019 22:55
[2019-01-15] MEDS: LEVOTHYROXINE 25 MCG TABLET. PO SCH (05:23)
[2019-01-15 06:01] VITALS: BP 99/62
--- NOTE | 2019-01-15 07:47 | PN ---
DATE: 01/13/2019 PSYCHIATRIC PROGRESS NOTE This late entry 01/13/2019 covers elements not covered in my initial note. SUBJECTIVE: I met with the patient in the evening. The patient slept 6-1/2 hours previous night. He seems to have some sundowning, laughing inappropriately in the morning. Valproic acid level is 36, on Depakote 250 b.i.d. and we will increase to 500 b.i.d. Check CBC, CMP, valproic acid level in 3 days to reach therapeutic level. REVIEW OF SYSTEMS: No CV, , pulmonary, eye, ENT system symptoms on review. Reliability varies. MENTAL STATUS EXAM: Oriented to himself, situation. Eye contact is poor. Psychomotor activity, reduced speech, low in rate and rhythm, often responses monosyllabic. He seems to stare blankly at times. Abstraction fair, computation impaired, language function intact. He remains psychotic. LABORATORY DATA: Reviewed. IMPRESSION: Unchanged from initial note. PLAN: No change other than noted above. LEENA CHINCHILLA MD DR: MARY/gage JOB#: [id number] / [id number]
[2019-01-15] MEDS: DIVALPROEX 125 MG CAP.SPRINK PO SCH ×2 (08:40→19:18)
[2019-01-15] MEDS: risperiDONE 2 MG TABLET. PO SCH ×2 (08:40→19:18)
[2019-01-15] MEDS: LACTULOSE 20 GM/30 ML SOLUTION. PO SCH ×2 (08:40→19:18)
[2019-01-15] MEDS: POLYETHYLENE GLYCOL 3350 17 GM PACKET. PO SCH ×2 (08:40→09:00)
[2019-01-15] MEDS: ESTRADIOL 1 MG TABLET PO SCH (08:40)
[2019-01-15] MEDS: DEXTROMETHORPHAN/QUINIDINE 20/10MG CAPSULE. PO SCH ×2 (08:40→19:21)
[2019-01-15] MEDS: MULTIVITAMIN with MINERAL TABLET. PO SCH (08:40)
[2019-01-15] MEDS: FAMOTIDINE 20 MG TABLET PO SCH ×2 (08:40→19:17)
[2019-01-15] MEDS: DORZOLAMIDE/TIMOLOL 2%/0.5% OPHTH SOLUTION 10ML BOTTLE. OD SCH ×2 (08:42→19:22)
[2019-01-15] MEDS: LORazepam 0.5 MG TABLET PO SCH ×3 (08:42→19:21)
[2019-01-15 16:03] VITALS: BP 100/64
[2019-01-15 16:17] VITALS: BP 105/69
[2019-01-15] MEDS: SENNOSIDES/DOCUSATE 8.6/50MG TABLET. PO SCH (19:17)
[2019-01-15] MEDS: traZODone 50 MG TABLET. PO SCH (19:17)
[2019-01-15] MEDS: TAMSULOSIN 0.4 MG CAP.ER.24H. PO SCH (19:18)
[2019-01-15] MEDS: LATANOPROST 0.005% OPHTH SOLUTION 2.5ML BOTTLE. OD SCH (19:22)
--- NOTE | 2019-01-15 22:58 | PDOC ---
Exam Note: Adrián Note: Please also refer to the separate dictated note~for this date of service dictated separately.~Patient seen individually. Discussed the patient with Nursing staff reviewed the chart.~Reviewed interim history and current functioning. Reviewed vital signs,~Labs/ Radiology~and current medications noted below. Continue current treatment with the changes noted in the dictated addendum note Assessment: Vital Signs: Vital Signs Date Time Temp Pulse Resp B/P (MAP) Pulse Ox O2 Delivery O2 Flow Rate FiO2 01/15/19 16:17 97.6 66 20 105/69 (81) 97 Room Air I&O Intake and Output 01/15/19 06:59 Intake Total 1080 ml Balance 1080 ml Intake Oral 1080 ml Current Medications: Meds: Current Medications Acetaminophen (Tylenol) 650 mg PRN Q4HRS PRN PO FEVER; Start 01/08/19 at 21:30 ; Stop 01/09/19 at 21:29; Status Cancel Acetaminophen (Tylenol) 650 mg PRN Q6HRS PRN PO PAIN / TEMP; Start 01/09/19 at 00:30; Status Cancel Multi-Ingredient Ointment (Analgesic [place]) 1 she PRN QID PRN TP MUSCLE PAIN; Start 01/09/19 at 00:30 Al Hydroxide/Mg Hydroxide (Mylanta Plus Xs) 15 ml PRN AFTMEALHC PRN PO DYSPEPSIA; Start 01/09/19 at 00:30 Magnesium Hydroxide (Milk Of Magnesia) 2,400 mg PRN QHS PRN PO CONSTIPATION; Start 01/09/19 at 00:30 Divalproex Sodium (Depakote Sprinkles) 125 mg BID PO Last administered on at 07:52; Start 01/09/19 at 09:00; Stop 01/10/19 at 17:11; Status DC Estradiol (Estrace) 0.5 mg DAILY PO Last administered on 01/15/19at 08:40; Start 01/09/19 at 09:00 Haloperidol Lactate (Haldol) 5 mg PRN DAILY PRN IM ANXIETY / AGITATION; Start 01/09/19 at 02:15; Stop 01/12/19 at 16:48; Status DC Lorazepam (Ativan) 0.5 mg PRN DAILY PRN PO ANXIETY; Start 01/09/19 at 02:15 Lorazepam (Ativan) 0.5 mg TID PO Last administered on 01/15/19 19:21; Start at 09:00 Risperidone (RisperDAL) 2 mg BID PO Last administered on 01/15/19 19:18; Start 01/09/19 at 09:00 Acetaminophen (Tylenol) 650 mg PRN Q6HRS PRN PO PAIN / TEMP; Start 01/09/19 at 02:15 Vitamin D (Vitamin D3) 50,000 unit WEEKLY PO Last administered on 01/09/19 09: 05; Start 01/09/19 at 09:00 Dextromethorphan/ Quinidine (Nuedexta 20-10 Mg Capsule) 1 cap BID PO Last administered on 01/15/19 19:21; Start 01/09/19 at 09:00 Senna/Docusate Sodium (Senna Plus) 1 tab HS PO Last administered on 01/15/19 19:17; Start 01/09/19 at 21:00 Tamsulosin HCl (Flomax) 0.4 mg HS PO Last administered on 01/15/19 19:18; Start 01/09/19 at 21:00 Acetaminophen/ Codeine Phosphate (Tylenol #3) 1 tab PRN Q4HRS PRN PO PAIN; Start 01/09/19 at 02:15 Acetaminophen/ Codeine Phosphate (Tylenol #3) 2 tab PRN Q4HRS PRN PO PAIN; Start 01/09/19 at 02:15 Non-Formulary Medication (Amino Acids/ Protein Hydrolys (Pro-Stat [facility] Liquid Packet)) 30 ml DAILY PO ; Start 01/09/19 at 09:00; Status UNV Non-Formulary Medication (Carboxymethylcellulos/ Glycerin (Refresh Optive Eye Drops)) 1 drop HS OD ; Start 01/09/19 at 21:00; Stop 01/09/19 at 21:00; Status DC Artificial Tears (Refresh Classic) 1 drop QID OU ; Start 01/09/19 at 09:00; Stop 01/09/19 at 09:00; Status DC Dorzolamide/ Timolol (Cosopt) 1 drop BID OD Last administered on 01/15/19 19: 22; Start 01/09/19 at 09:00 Lactulose (Lactulose) 20 gm BID PO Last administered on 01/15/19 19:18; Start 01/09/19 at 09:00 Latanoprost (Xalatan) 1 drop QHS OD Last administered on 01/15/19 19:22; Start 01/09/19 at 21:00 Levothyroxine Sodium (Synthroid) 25 mcg DAILY06 PO Last administered on 05:23; Start 01/09/19 at 06:00 Multivitamins/ Calcium (Thera-M Plus) 1 tab DAILY PO Last administered on 08:40; Start 01/09/19 at 09:00 Polyethylene Glycol (miraLAX) 17 gm DAILY PO Last administered on 01/14/19 08: 56; Start 01/09/19 at 09:00 Famotidine (Pepcid) 20 mg BID PO Last administered on 01/15/19 19:17; Start at 09:00 Erythromycin (Romycin) 1 inch DAILY OS Last administered on 01/10/19 07:53; Start 01/09/19 at 09:00; Stop 01/10/19 at 10:32; Status DC Divalproex Sodium (Depakote Sprinkles) 250 mg BID PO Last administered on 07:41; Start 01/10/19 at 21:00; Stop 01/13/19 at 18:48; Status DC Trazodone HCl (Desyrel) 50 mg QHS PO Last administered on 01/15/19 19:17; Start 01/10/19 at 21:00 Trazodone HCl (Desyrel) 50 mg PRN QHS PRN PO INSOMNIA; Start 01/10/19 at 17:15 Divalproex Sodium (Depakote Sprinkles) 500 mg BID PO Last administered on 19:18; Start 01/13/19 at 21:00 Active Scripts Active Reported Ranitidine Hcl 150 Mg Tablet 150 Mg PO BID Tylenol (Acetaminophen) 325 Mg Tablet 650 Mg PO PRN Q6HRS Flomax (Tamsulosin Hcl) 0.4 Mg Cap.er.24h 0.4 Mg PO HS Senna Plus Tablet (Sennosides/Docusate Sodium) 1 Each Tablet 1 Each PO HS Risperidone 2 Mg Tablet 2 Mg PO BID Refresh Optive Eye Drops (Carboxymethylcellulos/Glycerin) 15 Ml Drops 1 Drop OU QID Refresh Optive Eye Drops (Carboxymethylcellulos/Glycerin) 15 Ml Drops 1 Drop OD HS Pro-Stat Awc Liquid Packet (Amino Acids/Protein Hydrolys) 30 Ml Liquid.pkt 30 Ml PO DAILY Miralax (Polyethylene Glycol 3350) 17 Gm Powd.pack 17 Gm PO DAILY Nuedexta 20-10 Mg Capsule (Dextromethorphan Hbr/Quinidine) 1 Each Capsule 1 Each PO BID Multivitamins (Multivitamin) 1 Each Tablet 1 Each PO DAILY Levothyroxine Sodium 25 Mcg Tablet 25 Mcg PO DAILYAC Latanoprost 2.5 Ml Drops 1 Drop OD QHS Lactulose 10 Gm/15 Ml Solution 20 Gm PO BID Haloperidol Lactate 5 Mg/1 Ml Vial 5 Mg IM PRN DAILY PRN Estradiol 0.5 Mg Tablet 0.5 Mg PO DAILY Erythromycin (Erythromycin Base) 1 Gm Oint...g. 1 She OS BID Dorzolamide-Timolol Eye Drops (Dorzolamide Hcl/Timolol Maleat) 10 Ml Drops 1 Drop OD BID Depakote (Divalproex Sodium) 500 Mg Tablet.dr 125 Mg PO BID D3-50 (Cholecalciferol (Vitamin D3)) 50,000 Unit Capsule 50,000 Unit PO WEEKLY SUNDAY Lorazepam 0.5 Mg Tablet 0.5 Mg PO PRN DAILY PRN Lorazepam 0.5 Mg Tablet 0.5 Mg PO TID Tylenol With Codeine #3 Tablet (Acetaminophen With Codeine) 1 Each Tablet 2 Each PO PRN Q4HRS PRN Tylenol With Codeine #3 Tablet (Acetaminophen With Codeine) 1 Each Tablet 1 Each PO PRN Q4HRS PRN I have reviewed the current psychotropics carefully including drug interactions. Risk benefit ratio favors no change other than as noted in my dictated progress note. Diagnosis: Problems: (1) Medical clearance for psychiatric admission (2) Anxiety disorder (3) Major depressive disorder, recurrent episode (4) Impulse control disorder (5) Schizoaffective disorder, chronic condition with acute exacerbation (6) Mild cognitive disorder LEENA CHINCHILLA MD Jan 15, 2019 22:57
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
[2019-01-16] MEDS: LEVOTHYROXINE 25 MCG TABLET. PO SCH (05:59)
[2019-01-16 06:15] VITALS: BP 116/71
[2019-01-16] MEDS: LACTULOSE 20 GM/30 ML SOLUTION. PO SCH ×2 (07:24→19:37)
[2019-01-16] MEDS: POLYETHYLENE GLYCOL 3350 17 GM PACKET. PO SCH (07:24)
[2019-01-16] MEDS: DEXTROMETHORPHAN/QUINIDINE 20/10MG CAPSULE. PO SCH ×2 (07:25→19:39)
[2019-01-16] MEDS: FAMOTIDINE 20 MG TABLET PO SCH ×2 (07:25→19:37)
[2019-01-16] MEDS: LORazepam 0.5 MG TABLET PO SCH ×3 (07:25→19:39)
[2019-01-16] MEDS: DIVALPROEX 125 MG CAP.SPRINK PO SCH ×2 (07:25→19:37)
[2019-01-16] MEDS: risperiDONE 2 MG TABLET. PO SCH ×2 (07:25→19:37)
[2019-01-16] MEDS: MULTIVITAMIN with MINERAL TABLET. PO SCH (07:25)
[2019-01-16] MEDS: ESTRADIOL 1 MG TABLET PO SCH (07:25)
[2019-01-16] MEDS: DORZOLAMIDE/TIMOLOL 2%/0.5% OPHTH SOLUTION 10ML BOTTLE. OD SCH ×2 (07:27→19:40)
[2019-01-16] MEDS: CHOLECALCIFEROL (VITAMIN D3) 50,000 UNIT CAPSULE PO SCH (07:27)
[2019-01-16 07:38] LABS: BASO # 0.1 x10^3/uL (0.0-0.2); BASO % 1 % (0-3); EOS # 0.1 x10^3/uL (0.0-0.7); EOS % 3 % (0-3); HEMATOCRIT 40.1 % (39.0-53.0); HEMOGLOBIN 13.5 g/dL (13.0-17.5); LYMPH # 1.4 x10^3/uL (1.0-4.8); LYMPH % 25 % (24-48); MEAN CORPUSCULAR HEMOGLOBIN 29 pg (25-35); MEAN CORPUSCULAR HGB CONC 34 g/dL (31-37); MEAN CORPUSCULAR VOLUME 87 fL (79-100); MONO # 0.7 x10^3/uL (0.0-1.1); MONO % 12 % (0-9); NEUT # 3.3 x10^3uL (1.8-7.7); NEUT % 59 % (31-73); PLATELET COUNT 274 x10^3/uL (140-400); RED BLOOD COUNT 4.62 x10^6/uL (4.30-5.70); RED CELL DISTRIBUTION WIDTH 13.8 % (11.5-14.5); WHITE BLOOD COUNT 5.6 x10^3/uL (4.0-11.0)
[2019-01-16 07:58] LABS: ALBUMIN 3.2 g/dL (3.4-5.0); ALBUMIN/GLOBULIN RATIO 0.9 (1.0-1.7); CALCIUM 9.1 mg/dL (8.5-10.1); CREATININE 0.9 mg/dL (0.7-1.3); GFR 84.7; POTASSIUM 4.5 mmol/L (3.5-5.1); TOTAL BILIRUBIN 0.5 mg/dL (0.2-1.0); TOTAL PROTEIN 6.6 g/dL (6.4-8.2)
[2019-01-16 08:01] LABS: VAL ACID 57 mcg/mL (50-100)
[2019-01-16 16:13] VITALS: BP 106/69
[2019-01-16] MEDS: SENNOSIDES/DOCUSATE 8.6/50MG TABLET. PO SCH (19:37)
[2019-01-16] MEDS: traZODone 50 MG TABLET. PO SCH (19:37)
[2019-01-16] MEDS: TAMSULOSIN 0.4 MG CAP.ER.24H. PO SCH (19:37)
[2019-01-16] MEDS: LATANOPROST 0.005% OPHTH SOLUTION 2.5ML BOTTLE. OD SCH (19:40)
--- NOTE | 2019-01-16 22:33 | PDOC ---
Exam Note: Adrián Note: Please also refer to the separate dictated note~for this date of service dictated separately.~Patient seen individually. Discussed the patient with Nursing staff reviewed the chart.~Reviewed interim history and current functioning. Reviewed vital signs,~Labs/ Radiology~and current medications noted below. Continue current treatment with the changes noted in the dictated addendum note Assessment: Vital Signs: Vital Signs Date Time Temp Pulse Resp B/P (MAP) Pulse Ox O2 Delivery O2 Flow Rate FiO2 01/16/19 16:13 97.5 67 17 106/69 (81) 98 Room Air I&O Intake and Output 01/16/19 06:59 Intake Total 1200 ml Balance 1200 ml Intake Oral 1200 ml # Voids 1 Labs: Laboratory Tests Test 01/16/19 07:27 White Blood Count 5.6 x10^3/uL (4.0-11.0) Red Blood Count 4.62 x10^6/uL (4.30-5.70) Hemoglobin 13.5 g/dL (13.0-17.5) Hematocrit 40.1 % (39.0-53.0) Mean Corpuscular Volume 87 fL (79-100) Mean Corpuscular Hemoglobin 29 pg (25-35) Mean Corpuscular Hemoglobin Concent 34 g/dL (31-37) Red Cell Distribution Width 13.8 % (11.5-14.5) Platelet Count 274 x10^3/uL (140-400) Neutrophils (%) (Auto) 59 % (31-73) Lymphocytes (%) (Auto) 25 % (24-48) Monocytes (%) (Auto) 12 % (0-9) H Eosinophils (%) (Auto) 3 % (0-3) Basophils (%) (Auto) 1 % (0-3) Neutrophils # (Auto) 3.3 x10^3uL (1.8-7.7) Lymphocytes # (Auto) 1.4 x10^3/uL (1.0-4.8) Monocytes # (Auto) 0.7 x10^3/uL (0.0-1.1) Eosinophils # (Auto) 0.1 x10^3/uL (0.0-0.7) Basophils # (Auto) 0.1 x10^3/uL (0.0-0.2) Sodium Level 142 mmol/L (136-145) Potassium Level 4.5 mmol/L (3.5-5.1) Chloride Level 105 mmol/L (98-107) Carbon Dioxide Level 33 mmol/L (21-32) H Anion Gap 4 (6-14) L Blood Urea Nitrogen 22 mg/dL (8-26) Creatinine 0.9 mg/dL (0.7-1.3) Estimated GFR (Cockcroft-Gault) 84.7 BUN/Creatinine Ratio 24 (6-20) H Glucose Level 93 mg/dL (70-99) Calcium Level 9.1 mg/dL (8.5-10.1) Total Bilirubin 0.5 mg/dL (0.2-1.0) Aspartate Amino Transferase (AST) 21 U/L (15-37) Alanine Aminotransferase (ALT) 20 U/L (16-63) Alkaline Phosphatase 63 U/L (46-116) Total Protein 6.6 g/dL (6.4-8.2) Albumin 3.2 g/dL (3.4-5.0) L Albumin/Globulin Ratio 0.9 (1.0-1.7) L Valproic Acid Level 57 mcg/mL (50-100) Valproic Acid Last Dose Date 01/15/19 Valproic Acid Last Dose Time 2100 Current Medications: Meds: Current Medications Acetaminophen (Tylenol) 650 mg PRN Q4HRS PRN PO FEVER; Start 01/08/19 at 21:30 ; Stop 01/09/19 at 21:29; Status Cancel Acetaminophen (Tylenol) 650 mg PRN Q6HRS PRN PO PAIN / TEMP; Start 01/09/19 at 00:30; Status Cancel Multi-Ingredient Ointment (Analgesic [place]) 1 she PRN QID PRN TP MUSCLE PAIN; Start 01/09/19 at 00:30 Al Hydroxide/Mg Hydroxide (Mylanta Plus Xs) 15 ml PRN AFTMEALHC PRN PO DYSPEPSIA; Start 01/09/19 at 00:30 Magnesium Hydroxide (Milk Of Magnesia) 2,400 mg PRN QHS PRN PO CONSTIPATION; Start 01/09/19 at 00:30 Divalproex Sodium (Depakote Sprinkles) 125 mg BID PO Last administered on at 07:52; Start 01/09/19 at 09:00; Stop 01/10/19 at 17:11; Status DC Estradiol (Estrace) 0.5 mg DAILY PO Last administered on 01/16/19 07:25; Start 01/09/19 at 09:00 Haloperidol Lactate (Haldol) 5 mg PRN DAILY PRN IM ANXIETY / AGITATION; Start 01/09/19 at 02:15; Stop 01/12/19 at 16:48; Status DC Lorazepam (Ativan) 0.5 mg PRN DAILY PRN PO ANXIETY; Start 01/09/19 at 02:15 Lorazepam (Ativan) 0.5 mg TID PO Last administered on 01/16/19 19:39; Start at 09:00 Risperidone (RisperDAL) 2 mg BID PO Last administered on 01/16/19 19:37; Start 01/09/19 at 09:00 Acetaminophen (Tylenol) 650 mg PRN Q6HRS PRN PO PAIN / TEMP; Start 01/09/19 at 02:15 Vitamin D (Vitamin D3) 50,000 unit WEEKLY PO Last administered on 01/16/19at 07: 27; Start 01/09/19 at 09:00 Dextromethorphan/ Quinidine (Nuedexta 20-10 Mg Capsule) 1 cap BID PO Last administered on 01/16/19 19:39; Start 01/09/19 at 09:00 Senna/Docusate Sodium (Senna Plus) 1 tab HS PO Last administered on 01/16/19 19:37; Start 01/09/19 at 21:00 Tamsulosin HCl (Flomax) 0.4 mg HS PO Last administered on 01/16/19 19:37; Start 01/09/19 at 21:00 Acetaminophen/ Codeine Phosphate (Tylenol #3) 1 tab PRN Q4HRS PRN PO PAIN; Start 01/09/19 at 02:15 Acetaminophen/ Codeine Phosphate (Tylenol #3) 2 tab PRN Q4HRS PRN PO PAIN; Start 01/09/19 at 02:15 Non-Formulary Medication (Amino Acids/ Protein Hydrolys (Pro-Stat Awc Liquid Packet)) 30 ml DAILY PO ; Start 01/09/19 at 09:00; Status UNV Non-Formulary Medication (Carboxymethylcellulos/ Glycerin (Refresh Optive Eye Drops)) 1 drop HS OD ; Start 01/09/19 at 21:00; Stop 01/09/19 at 21:00; Status DC Artificial Tears (Refresh Classic) 1 drop QID OU ; Start 01/09/19 at 09:00; Stop 01/09/19 at 09:00; Status DC Dorzolamide/ Timolol (Cosopt) 1 drop BID OD Last administered on 01/16/19 19: 40; Start 01/09/19 at 09:00 Lactulose (Lactulose) 20 gm BID PO Last administered on 01/16/19 19:37; Start 01/09/19 at 09:00 Latanoprost (Xalatan) 1 drop QHS OD Last administered on 01/16/19 19:40; Start 01/09/19 at 21:00 Levothyroxine Sodium (Synthroid) 25 mcg DAILY06 PO Last administered on 05:59; Start 01/09/19 at 06:00 Multivitamins/ Calcium (Thera-M Plus) 1 tab DAILY PO Last administered on 07:25; Start 01/09/19 at 09:00 Polyethylene Glycol (miraLAX) 17 gm DAILY PO Last administered on 01/16/19 07: 24; Start 01/09/19 at 09:00 Famotidine (Pepcid) 20 mg BID PO Last administered on 01/16/19 19:37; Start at 09:00 Erythromycin (Romycin) 1 inch DAILY OS Last administered on 01/10/19 07:53; Start 01/09/19 at 09:00; Stop 01/10/19 at 10:32; Status DC Divalproex Sodium (Depakote Sprinkles) 250 mg BID PO Last administered on 07:41; Start 01/10/19 at 21:00; Stop 01/13/19 at 18:48; Status DC Trazodone HCl (Desyrel) 50 mg QHS PO Last administered on 01/16/19 19:37; Start 01/10/19 at 21:00 Trazodone HCl (Desyrel) 50 mg PRN QHS PRN PO INSOMNIA; Start 01/10/19 at 17:15 Divalproex Sodium (Depakote Sprinkles) 500 mg BID PO Last administered on at 19:37; Start 01/13/19 at 21:00 Active Scripts Active Reported Ranitidine Hcl 150 Mg Tablet 150 Mg PO BID Tylenol (Acetaminophen) 325 Mg Tablet 650 Mg PO PRN Q6HRS Flomax (Tamsulosin Hcl) 0.4 Mg Cap.er.24h 0.4 Mg PO HS Senna Plus Tablet (Sennosides/Docusate Sodium) 1 Each Tablet 1 Each PO HS Risperidone 2 Mg Tablet 2 Mg PO BID Refresh Optive Eye Drops (Carboxymethylcellulos/Glycerin) 15 Ml Drops 1 Drop OU QID Refresh Optive Eye Drops (Carboxymethylcellulos/Glycerin) 15 Ml Drops 1 Drop OD HS Pro-Stat Awc Liquid Packet (Amino Acids/Protein Hydrolys) 30 Ml Liquid.pkt 30 Ml PO DAILY Miralax (Polyethylene Glycol 3350) 17 Gm Powd.pack 17 Gm PO DAILY Nuedexta 20-10 Mg Capsule (Dextromethorphan Hbr/Quinidine) 1 Each Capsule 1 Each PO BID Multivitamins (Multivitamin) 1 Each Tablet 1 Each PO DAILY Levothyroxine Sodium 25 Mcg Tablet 25 Mcg PO DAILYAC Latanoprost 2.5 Ml Drops 1 Drop OD QHS Lactulose 10 Gm/15 Ml Solution 20 Gm PO BID Haloperidol Lactate 5 Mg/1 Ml Vial 5 Mg IM PRN DAILY PRN Estradiol 0.5 Mg Tablet 0.5 Mg PO DAILY Erythromycin (Erythromycin Base) 1 Gm Oint...g. 1 She OS BID Dorzolamide-Timolol Eye Drops (Dorzolamide Hcl/Timolol Maleat) 10 Ml Drops 1 Drop OD BID Depakote (Divalproex Sodium) 500 Mg Tablet.dr 125 Mg PO BID D3-50 (Cholecalciferol (Vitamin D3)) 50,000 Unit Capsule 50,000 Unit PO WEEKLY SUNDAY Lorazepam 0.5 Mg Tablet 0.5 Mg PO PRN DAILY PRN Lorazepam 0.5 Mg Tablet 0.5 Mg PO TID Tylenol With Codeine #3 Tablet (Acetaminophen With Codeine) 1 Each Tablet 2 Each PO PRN Q4HRS PRN Tylenol With Codeine #3 Tablet (Acetaminophen With Codeine) 1 Each Tablet 1 Each PO PRN Q4HRS PRN I have reviewed the current psychotropics carefully including drug interactions. Risk benefit ratio favors no change other than as noted in my dictated progress note. Diagnosis: Problems: (1) Medical clearance for psychiatric admission (2) Anxiety disorder (3) Major depressive disorder, recurrent episode (4) Impulse control disorder (5) Schizoaffective disorder, chronic condition with acute exacerbation (6) Mild cognitive disorder LEENA CHINCHILLA MD Jan 16, 2019 22:33
[2019-01-17] MEDS: LEVOTHYROXINE 25 MCG TABLET. PO SCH (04:59)
[2019-01-17 05:50] VITALS: BP 110/68
[2019-01-17] MEDS: DIVALPROEX 125 MG CAP.SPRINK PO SCH ×2 (07:54→20:16)
[2019-01-17] MEDS: ESTRADIOL 1 MG TABLET PO SCH (07:55)
[2019-01-17] MEDS: LACTULOSE 20 GM/30 ML SOLUTION. PO SCH ×2 (07:55→20:17)
[2019-01-17] MEDS: FAMOTIDINE 20 MG TABLET PO SCH ×2 (07:55→20:17)
[2019-01-17] MEDS: DEXTROMETHORPHAN/QUINIDINE 20/10MG CAPSULE. PO SCH ×2 (07:55→20:19)
[2019-01-17] MEDS: MULTIVITAMIN with MINERAL TABLET. PO SCH (07:55)
[2019-01-17] MEDS: risperiDONE 2 MG TABLET. PO SCH ×2 (07:55→20:18)
[2019-01-17] MEDS: POLYETHYLENE GLYCOL 3350 17 GM PACKET. PO SCH (07:56)
[2019-01-17] MEDS: LORazepam 0.5 MG TABLET PO SCH ×3 (07:58→20:15)
[2019-01-17] MEDS: DORZOLAMIDE/TIMOLOL 2%/0.5% OPHTH SOLUTION 10ML BOTTLE. OD SCH ×2 (07:59→20:17)
[2019-01-17 15:57] VITALS: BP 111/72
[2019-01-17] MEDS: traZODone 50 MG TABLET. PO SCH (20:16)
[2019-01-17] MEDS: TAMSULOSIN 0.4 MG CAP.ER.24H. PO SCH (20:17)
[2019-01-17] MEDS: LATANOPROST 0.005% OPHTH SOLUTION 2.5ML BOTTLE. OD SCH (20:17)
[2019-01-17] MEDS: SENNOSIDES/DOCUSATE 8.6/50MG TABLET. PO SCH (20:18)
--- NOTE | 2019-01-17 22:28 | PN ---
DATE: 01/15/2019 PSYCHIATRIC PROGRESS NOTE This late entry 01/15/2019 covers elements not covered in my initial note. SUBJECTIVE: I met with the patient in the evening. The patient slept 5-3/4 hours previous night. He did well until about 01:30 and then he was sexually inappropriate, sitting on the lap of female staff member, unzipping his pants, trying to put his finger into his groin area. He did redirect. REVIEW OF SYSTEMS: No CV, , pulmonary, eye system symptoms on review. MENTAL STATUS EXAMINATION: The patient is oriented to himself and situation. Speech, moderate latency, often responses monosyllabic. Abstraction fair, computation impaired, language function intact. Mood and affect somewhat withdrawn. He is still somewhat psychotic, but improved. LABORATORY DATA: Reviewed. IMPRESSION: Unchanged from initial note. PLAN: No change from initial note. Received the [employer] testing report indicating that he may need lower dosages of Risperdal than normal. He does have some extrapyramidal side effects and we may need to reduce the Risperdal once the Depakote level is therapeutic. MAN Bessy CHINCHILLA MD DR: MARY/gage JOB#: [id number] / [id number]
--- NOTE | 2019-01-17 22:30 | PDOC ---
Exam Note: Adrián Note: Please also refer to the separate dictated note~for this date of service dictated separately.~Patient seen individually. Discussed the patient with Nursing staff reviewed the chart.~Reviewed interim history and current functioning. Reviewed vital signs,~Labs/ Radiology~and current medications noted below. Continue current treatment with the changes noted in the dictated addendum note Assessment: Vital Signs: Vital Signs Date Time Temp Pulse Resp B/P (MAP) Pulse Ox O2 Delivery O2 Flow Rate FiO2 01/17/19 15:57 98.4 68 18 111/72 (85) 97 Room Air I&O Intake and Output 01/17/19 06:59 Intake Total 840 ml Balance 840 ml Intake Oral 840 ml # Voids 1 Current Medications: Meds: Current Medications Acetaminophen (Tylenol) 650 mg PRN Q4HRS PRN PO FEVER; Start 01/08/19 at 21:30 ; Stop 01/09/19 at 21:29; Status Cancel Acetaminophen (Tylenol) 650 mg PRN Q6HRS PRN PO PAIN / TEMP; Start 01/09/19 at 00:30; Status Cancel Multi-Ingredient Ointment (Analgesic [place]) 1 she PRN QID PRN TP MUSCLE PAIN; Start 01/09/19 at 00:30 Al Hydroxide/Mg Hydroxide (Mylanta Plus Xs) 15 ml PRN AFTMEALHC PRN PO DYSPEPSIA; Start 01/09/19 at 00:30 Magnesium Hydroxide (Milk Of Magnesia) 2,400 mg PRN QHS PRN PO CONSTIPATION; Start 01/09/19 at 00:30 Divalproex Sodium (Depakote Sprinkles) 125 mg BID PO Last administered on at 07:52; Start 01/09/19 at 09:00; Stop 01/10/19 at 17:11; Status DC Estradiol (Estrace) 0.5 mg DAILY PO Last administered on 01/17/19at 07:55; Start 01/09/19 at 09:00 Haloperidol Lactate (Haldol) 5 mg PRN DAILY PRN IM ANXIETY / AGITATION; Start 01/09/19 at 02:15; Stop 01/12/19 at 16:48; Status DC Lorazepam (Ativan) 0.5 mg PRN DAILY PRN PO ANXIETY; Start 01/09/19 at 02:15 Lorazepam (Ativan) 0.5 mg TID PO Last administered on 01/17/19 20:15; Start at 09:00 Risperidone (RisperDAL) 2 mg BID PO Last administered on 01/17/19 07:55; Start 01/09/19 at 09:00; Stop 01/17/19 at 16:41; Status DC Acetaminophen (Tylenol) 650 mg PRN Q6HRS PRN PO PAIN / TEMP; Start 01/09/19 at 02:15 Vitamin D (Vitamin D3) 50,000 unit WEEKLY PO Last administered on 01/16/19 07: 27; Start 01/09/19 at 09:00 Dextromethorphan/ Quinidine (Nuedexta 20-10 Mg Capsule) 1 cap BID PO Last administered on 01/17/19 20:19; Start 01/09/19 at 09:00 Senna/Docusate Sodium (Senna Plus) 1 tab HS PO Last administered on 01/17/19 20:18; Start 01/09/19 at 21:00 Tamsulosin HCl (Flomax) 0.4 mg HS PO Last administered on 01/17/19 20:17; Start 01/09/19 at 21:00 Acetaminophen/ Codeine Phosphate (Tylenol #3) 1 tab PRN Q4HRS PRN PO PAIN; Start 01/09/19 at 02:15 Acetaminophen/ Codeine Phosphate (Tylenol #3) 2 tab PRN Q4HRS PRN PO PAIN; Start 01/09/19 at 02:15 Non-Formulary Medication (Amino Acids/ Protein Hydrolys (Pro-Stat [facility] Liquid Packet)) 30 ml DAILY PO ; Start 01/09/19 at 09:00; Status UNV Non-Formulary Medication (Carboxymethylcellulos/ Glycerin (Refresh Optive Eye Drops)) 1 drop HS OD ; Start 01/09/19 at 21:00; Stop 01/09/19 at 21:00; Status DC Artificial Tears (Refresh Classic) 1 drop QID OU ; Start 01/09/19 at 09:00; Stop 01/09/19 at 09:00; Status DC Dorzolamide/ Timolol (Cosopt) 1 drop BID OD Last administered on 01/17/19 20: 17; Start 01/09/19 at 09:00 Lactulose (Lactulose) 20 gm BID PO Last administered on 01/17/19 20:17; Start 01/09/19 at 09:00 Latanoprost (Xalatan) 1 drop QHS OD Last administered on 01/17/19 20:17; Start 01/09/19 at 21:00 Levothyroxine Sodium (Synthroid) 25 mcg DAILY06 PO Last administered on 04:59; Start 01/09/19 at 06:00 Multivitamins/ Calcium (Thera-M Plus) 1 tab DAILY PO Last administered on 07:55; Start 01/09/19 at 09:00 Polyethylene Glycol (miraLAX) 17 gm DAILY PO Last administered on 01/17/19 07: 56; Start 01/09/19 at 09:00 Famotidine (Pepcid) 20 mg BID PO Last administered on 01/17/19 20:17; Start at 09:00 Erythromycin (Romycin) 1 inch DAILY OS Last administered on 01/10/19 07:53; Start 01/09/19 at 09:00; Stop 01/10/19 at 10:32; Status DC Divalproex Sodium (Depakote Sprinkles) 250 mg BID PO Last administered on 07:41; Start 01/10/19 at 21:00; Stop 01/13/19 at 18:48; Status DC Trazodone HCl (Desyrel) 50 mg QHS PO Last administered on 01/17/19 20:16; Start 01/10/19 at 21:00 Trazodone HCl (Desyrel) 50 mg PRN QHS PRN PO INSOMNIA; Start 01/10/19 at 17:15 Divalproex Sodium (Depakote Sprinkles) 500 mg BID PO Last administered on 20:16; Start 01/13/19 at 21:00 Risperidone (RisperDAL) 1.5 mg DAILY PO ; Start 01/18/19 at 09:00 Risperidone (RisperDAL) 2 mg QHS PO Last administered on 01/17/19 20:18; Start 01/17/19 at 21:00 Active Scripts Active Reported Ranitidine Hcl 150 Mg Tablet 150 Mg PO BID Tylenol (Acetaminophen) 325 Mg Tablet 650 Mg PO PRN Q6HRS Flomax (Tamsulosin Hcl) 0.4 Mg Cap.er.24h 0.4 Mg PO HS Senna Plus Tablet (Sennosides/Docusate Sodium) 1 Each Tablet 1 Each PO HS Risperidone 2 Mg Tablet 2 Mg PO BID Refresh Optive Eye Drops (Carboxymethylcellulos/Glycerin) 15 Ml Drops 1 Drop OU QID Refresh Optive Eye Drops (Carboxymethylcellulos/Glycerin) 15 Ml Drops 1 Drop OD HS Pro-Stat Awc Liquid Packet (Amino Acids/Protein Hydrolys) 30 Ml Liquid.pkt 30 Ml PO DAILY Miralax (Polyethylene Glycol 3350) 17 Gm Powd.pack 17 Gm PO DAILY Nuedexta 20-10 Mg Capsule (Dextromethorphan Hbr/Quinidine) 1 Each Capsule 1 Each PO BID Multivitamins (Multivitamin) 1 Each Tablet 1 Each PO DAILY Levothyroxine Sodium 25 Mcg Tablet 25 Mcg PO DAILYAC Latanoprost 2.5 Ml Drops 1 Drop OD QHS Lactulose 10 Gm/15 Ml Solution 20 Gm PO BID Haloperidol Lactate 5 Mg/1 Ml Vial 5 Mg IM PRN DAILY PRN Estradiol 0.5 Mg Tablet 0.5 Mg PO DAILY Erythromycin (Erythromycin Base) 1 Gm Oint...g. 1 She OS BID Dorzolamide-Timolol Eye Drops (Dorzolamide Hcl/Timolol Maleat) 10 Ml Drops 1 Drop OD BID Depakote (Divalproex Sodium) 500 Mg Tablet.dr 125 Mg PO BID D3-50 (Cholecalciferol (Vitamin D3)) 50,000 Unit Capsule 50,000 Unit PO WEEKLY SUNDAY Lorazepam 0.5 Mg Tablet 0.5 Mg PO PRN DAILY PRN Lorazepam 0.5 Mg Tablet 0.5 Mg PO TID Tylenol With Codeine #3 Tablet (Acetaminophen With Codeine) 1 Each Tablet 2 Each PO PRN Q4HRS PRN Tylenol With Codeine #3 Tablet (Acetaminophen With Codeine) 1 Each Tablet 1 Each PO PRN Q4HRS PRN I have reviewed the current psychotropics carefully including drug interactions. Risk benefit ratio favors no change other than as noted in my dictated progress note. Diagnosis: Problems: (1) Medical clearance for psychiatric admission (2) Anxiety disorder (3) Major depressive disorder, recurrent episode (4) Impulse control disorder (5) Schizoaffective disorder, chronic condition with acute exacerbation (6) Mild cognitive disorder LEENA CHINCHILLA MD Jan 17, 2019 22:30
--- NOTE | 2019-01-17 22:57 | PN ---
DATE: 01/16/2019 PSYCHIATRIC PROGRESS NOTE This late entry 01/16/2019 covers elements not covered in my initial note. SUBJECTIVE: I met with the patient in the evening and staffed at a treatment team meeting with the entire team in the morning with Dyana, the patient's sister joining in. We had a lengthy discussion about the patient's diagnosis and results of the [employer] testing, which indicates we may need to use lower dosages of Risperdal due to his metabolism. He did better in the morning, little worse in the afternoon, inappropriate sexually. REVIEW OF SYSTEMS: Positive for some tiredness. No CV, , pulmonary, eye system symptoms on review. MENTAL STATUS EXAMINATION: Oriented to himself and situation. Speech, moderate latency, often responses monosyllabic. Abstraction fair, computation impaired, language function intact, attention span short. Mood and affect somewhat withdrawn. LABORATORY DATA: Reviewed. Valproic acid level is awaited. IMPRESSION: Unchanged from initial note. PLAN: Continue current psychotropics, but once the valproic acid level is therapeutic, we will reduce the Risperdal to see if it can minimize the extrapyramidal side effects and the parkinsonian side effects he seems to be experiencing. There is no clear rigidity; however, the facial expression is affected. LEENA CHINCHILLA MD DR: MARY/gage JOB#: [id number] / [id number]
[2019-01-18] MEDS: LEVOTHYROXINE 25 MCG TABLET. PO SCH (05:47)
[2019-01-18 06:00] VITALS: BP 118/74
[2019-01-18] MEDS: POLYETHYLENE GLYCOL 3350 17 GM PACKET. PO SCH (07:50)
[2019-01-18] MEDS: LORazepam 0.5 MG TABLET PO SCH ×3 (07:50→19:38)
[2019-01-18] MEDS: FAMOTIDINE 20 MG TABLET PO SCH ×2 (07:50→19:38)
[2019-01-18] MEDS: DIVALPROEX 125 MG CAP.SPRINK PO SCH ×2 (07:50→19:38)
[2019-01-18] MEDS: DEXTROMETHORPHAN/QUINIDINE 20/10MG CAPSULE. PO SCH ×2 (07:50→19:37)
[2019-01-18] MEDS: MULTIVITAMIN with MINERAL TABLET. PO SCH (07:50)
[2019-01-18] MEDS: LACTULOSE 20 GM/30 ML SOLUTION. PO SCH ×2 (07:50→19:37)
[2019-01-18] MEDS: DORZOLAMIDE/TIMOLOL 2%/0.5% OPHTH SOLUTION 10ML BOTTLE. OD SCH ×2 (07:52→19:37)
[2019-01-18] MEDS: ESTRADIOL 1 MG TABLET PO SCH (07:52)
[2019-01-18] MEDS: risperiDONE 0.5 MG TABLET. PO SCH (07:56)
[2019-01-18 17:20] VITALS: BP 106/72
[2019-01-18] MEDS: TAMSULOSIN 0.4 MG CAP.ER.24H. PO SCH (19:37)
[2019-01-18] MEDS: LATANOPROST 0.005% OPHTH SOLUTION 2.5ML BOTTLE. OD SCH (19:37)
[2019-01-18] MEDS: SENNOSIDES/DOCUSATE 8.6/50MG TABLET. PO SCH (19:38)
[2019-01-18] MEDS: risperiDONE 2 MG TABLET. PO SCH (19:38)
[2019-01-18] MEDS: traZODone 50 MG TABLET. PO SCH (19:38)
--- NOTE | 2019-01-18 22:30 | PDOC ---
Exam Note: Adrián Note: Please also refer to the separate dictated note~for this date of service dictated separately.~Patient seen individually. Discussed the patient with Nursing staff reviewed the chart.~Reviewed interim history and current functioning. Reviewed vital signs,~Labs/ Radiology~and current medications noted below. Continue current treatment with the changes noted in the dictated addendum note Assessment: Vital Signs: Vital Signs Date Time Temp Pulse Resp B/P (MAP) Pulse Ox O2 Delivery O2 Flow Rate FiO2 01/18/19 17:20 98.1 72 18 106/72 (83) 96 01/17/19 15:57 Room Air I&O Intake and Output 01/18/19 07:00 Intake Total 1140 ml Balance 1140 ml Intake Oral 1140 ml # Voids 1 Current Medications: Meds: Current Medications Acetaminophen (Tylenol) 650 mg PRN Q4HRS PRN PO FEVER; Start 01/08/19 at 21:30 ; Stop 01/09/19 at 21:29; Status Cancel Acetaminophen (Tylenol) 650 mg PRN Q6HRS PRN PO PAIN / TEMP; Start 01/09/19 at 00:30; Status Cancel Multi-Ingredient Ointment (Analgesic [place]) 1 she PRN QID PRN TP MUSCLE PAIN; Start 01/09/19 at 00:30 Al Hydroxide/Mg Hydroxide (Mylanta Plus Xs) 15 ml PRN AFTMEALHC PRN PO DYSPEPSIA; Start 01/09/19 at 00:30 Magnesium Hydroxide (Milk Of Magnesia) 2,400 mg PRN QHS PRN PO CONSTIPATION; Start 01/09/19 at 00:30 Divalproex Sodium (Depakote Sprinkles) 125 mg BID PO Last administered on at 07:52; Start 01/09/19 at 09:00; Stop 01/10/19 at 17:11; Status DC Estradiol (Estrace) 0.5 mg DAILY PO Last administered on 01/18/19at 07:52; Start 01/09/19 at 09:00 Haloperidol Lactate (Haldol) 5 mg PRN DAILY PRN IM ANXIETY / AGITATION; Start 01/09/19 at 02:15; Stop 01/12/19 at 16:48; Status DC Lorazepam (Ativan) 0.5 mg PRN DAILY PRN PO ANXIETY; Start 01/09/19 at 02:15 Lorazepam (Ativan) 0.5 mg TID PO Last administered on 01/18/19 19:38; Start at 09:00 Risperidone (RisperDAL) 2 mg BID PO Last administered on 01/17/19 07:55; Start 01/09/19 at 09:00; Stop 01/17/19 at 16:41; Status DC Acetaminophen (Tylenol) 650 mg PRN Q6HRS PRN PO PAIN / TEMP; Start 01/09/19 at 02:15 Vitamin D (Vitamin D3) 50,000 unit WEEKLY PO Last administered on 01/16/19 07: 27; Start 01/09/19 at 09:00 Dextromethorphan/ Quinidine (Nuedexta 20-10 Mg Capsule) 1 cap BID PO Last administered on 01/18/19 19:37; Start 01/09/19 at 09:00 Senna/Docusate Sodium (Senna Plus) 1 tab HS PO Last administered on 01/18/19 19:38; Start 01/09/19 at 21:00 Tamsulosin HCl (Flomax) 0.4 mg HS PO Last administered on 01/18/19 19:37; Start 01/09/19 at 21:00 Acetaminophen/ Codeine Phosphate (Tylenol #3) 1 tab PRN Q4HRS PRN PO PAIN; Start 01/09/19 at 02:15 Acetaminophen/ Codeine Phosphate (Tylenol #3) 2 tab PRN Q4HRS PRN PO PAIN; Start 01/09/19 at 02:15 Non-Formulary Medication (Amino Acids/ Protein Hydrolys (Pro-Stat Awc Liquid Packet)) 30 ml DAILY PO ; Start 01/09/19 at 09:00; Status UNV Non-Formulary Medication (Carboxymethylcellulos/ Glycerin (Refresh Optive Eye Drops)) 1 drop HS OD ; Start 01/09/19 at 21:00; Stop 01/09/19 at 21:00; Status DC Artificial Tears (Refresh Classic) 1 drop QID OU ; Start 01/09/19 at 09:00; Stop 01/09/19 at 09:00; Status DC Dorzolamide/ Timolol (Cosopt) 1 drop BID OD Last administered on 01/18/19 19: 37; Start 01/09/19 at 09:00 Lactulose (Lactulose) 20 gm BID PO Last administered on 01/18/19 19:37; Start 01/09/19 at 09:00 Latanoprost (Xalatan) 1 drop QHS OD Last administered on 01/18/19 19:37; Start 01/09/19 at 21:00 Levothyroxine Sodium (Synthroid) 25 mcg DAILY06 PO Last administered on 05:47; Start 01/09/19 at 06:00 Multivitamins/ Calcium (Thera-M Plus) 1 tab DAILY PO Last administered on 07:50; Start 01/09/19 at 09:00 Polyethylene Glycol (miraLAX) 17 gm DAILY PO Last administered on 01/18/19 07: 50; Start 01/09/19 at 09:00 Famotidine (Pepcid) 20 mg BID PO Last administered on 01/18/19 19:38; Start at 09:00 Erythromycin (Romycin) 1 inch DAILY OS Last administered on 01/10/19 07:53; Start 01/09/19 at 09:00; Stop 01/10/19 at 10:32; Status DC Divalproex Sodium (Depakote Sprinkles) 250 mg BID PO Last administered on 07:41; Start 01/10/19 at 21:00; Stop 01/13/19 at 18:48; Status DC Trazodone HCl (Desyrel) 50 mg QHS PO Last administered on 01/18/19 19:38; Start 01/10/19 at 21:00 Trazodone HCl (Desyrel) 50 mg PRN QHS PRN PO INSOMNIA; Start 01/10/19 at 17:15 Divalproex Sodium (Depakote Sprinkles) 500 mg BID PO Last administered on 19:38; Start 01/13/19 at 21:00 Risperidone (RisperDAL) 1.5 mg DAILY PO Last administered on 01/18/19 07:56; Start 01/18/19 at 09:00; Stop 01/20/19 at 08:59 Risperidone (RisperDAL) 2 mg QHS PO Last administered on 3/30/19at 19:38; Start 01/17/19 at 21:00; Stop 01/20/19 at 20:59 Risperidone (RisperDAL) 1.5 mg BID PO ; Start 01/20/19 at 09:00 Active Scripts Active Reported Ranitidine Hcl 150 Mg Tablet 150 Mg PO BID Tylenol (Acetaminophen) 325 Mg Tablet 650 Mg PO PRN Q6HRS Flomax (Tamsulosin Hcl) 0.4 Mg Cap.er.24h 0.4 Mg PO HS Senna Plus Tablet (Sennosides/Docusate Sodium) 1 Each Tablet 1 Each PO HS Risperidone 2 Mg Tablet 2 Mg PO BID Refresh Optive Eye Drops (Carboxymethylcellulos/Glycerin) 15 Ml Drops 1 Drop OU QID Refresh Optive Eye Drops (Carboxymethylcellulos/Glycerin) 15 Ml Drops 1 Drop OD HS Pro-Stat Awc Liquid Packet (Amino Acids/Protein Hydrolys) 30 Ml Liquid.pkt 30 Ml PO DAILY Miralax (Polyethylene Glycol 3350) 17 Gm Powd.pack 17 Gm PO DAILY Nuedexta 20-10 Mg Capsule (Dextromethorphan Hbr/Quinidine) 1 Each Capsule 1 Each PO BID Multivitamins (Multivitamin) 1 Each Tablet 1 Each PO DAILY Levothyroxine Sodium 25 Mcg Tablet 25 Mcg PO DAILYAC Latanoprost 2.5 Ml Drops 1 Drop OD QHS Lactulose 10 Gm/15 Ml Solution 20 Gm PO BID Haloperidol Lactate 5 Mg/1 Ml Vial 5 Mg IM PRN DAILY PRN Estradiol 0.5 Mg Tablet 0.5 Mg PO DAILY Erythromycin (Erythromycin Base) 1 Gm Oint...g. 1 She OS BID Dorzolamide-Timolol Eye Drops (Dorzolamide Hcl/Timolol Maleat) 10 Ml Drops 1 Drop OD BID Depakote (Divalproex Sodium) 500 Mg Tablet.dr 125 Mg PO BID D3-50 (Cholecalciferol (Vitamin D3)) 50,000 Unit Capsule 50,000 Unit PO WEEKLY SUNDAY Lorazepam 0.5 Mg Tablet 0.5 Mg PO PRN DAILY PRN Lorazepam 0.5 Mg Tablet 0.5 Mg PO TID Tylenol With Codeine #3 Tablet (Acetaminophen With Codeine) 1 Each Tablet 2 Each PO PRN Q4HRS PRN Tylenol With Codeine #3 Tablet (Acetaminophen With Codeine) 1 Each Tablet 1 Each PO PRN Q4HRS PRN I have reviewed the current psychotropics carefully including drug interactions. Risk benefit ratio favors no change other than as noted in my dictated progress note. Diagnosis: Problems: (1) Medical clearance for psychiatric admission (2) Anxiety disorder (3) Major depressive disorder, recurrent episode (4) Impulse control disorder (5) Schizoaffective disorder, chronic condition with acute exacerbation (6) Mild cognitive disorder LEENA CHINCHILLA MD Jan 18, 2019 22:30
[2019-01-19] MEDS: LEVOTHYROXINE 25 MCG TABLET. PO SCH (04:52)
[2019-01-19 06:38] VITALS: BP 111/66
[2019-01-19] MEDS: POLYETHYLENE GLYCOL 3350 17 GM PACKET. PO SCH (07:35)
[2019-01-19] MEDS: DIVALPROEX 125 MG CAP.SPRINK PO SCH ×2 (07:35→21:14)
[2019-01-19] MEDS: LACTULOSE 20 GM/30 ML SOLUTION. PO SCH ×2 (07:36→21:14)
[2019-01-19] MEDS: risperiDONE 0.5 MG TABLET. PO SCH (07:36)
[2019-01-19] MEDS: MULTIVITAMIN with MINERAL TABLET. PO SCH (07:36)
[2019-01-19] MEDS: FAMOTIDINE 20 MG TABLET PO SCH ×2 (07:36→21:15)
[2019-01-19] MEDS: ESTRADIOL 1 MG TABLET PO SCH (07:38)
[2019-01-19] MEDS: LORazepam 0.5 MG TABLET PO SCH ×3 (07:39→21:15)
[2019-01-19] MEDS: DEXTROMETHORPHAN/QUINIDINE 20/10MG CAPSULE. PO SCH ×2 (07:39→21:15)
[2019-01-19] MEDS: DORZOLAMIDE/TIMOLOL 2%/0.5% OPHTH SOLUTION 10ML BOTTLE. OD SCH ×2 (07:39→21:16)
[2019-01-19 15:46] VITALS: BP 103/68
[2019-01-19] MEDS: SENNOSIDES/DOCUSATE 8.6/50MG TABLET. PO SCH (21:14)
[2019-01-19] MEDS: risperiDONE 2 MG TABLET. PO SCH (21:14)
[2019-01-19] MEDS: traZODone 50 MG TABLET. PO SCH (21:15)
[2019-01-19] MEDS: LATANOPROST 0.005% OPHTH SOLUTION 2.5ML BOTTLE. OD SCH (21:15)
[2019-01-19] MEDS: TAMSULOSIN 0.4 MG CAP.ER.24H. PO SCH (21:15)
--- NOTE | 2019-01-19 22:40 | PDOC ---
Exam Note: Adrián Note: Please also refer to the separate dictated note~for this date of service dictated separately.~Patient seen individually. Discussed the patient with Nursing staff reviewed the chart.~Reviewed interim history and current functioning. Reviewed vital signs,~Labs/ Radiology~and current medications noted below. Continue current treatment with the changes noted in the dictated addendum note Assessment: Vital Signs: Vital Signs Date Time Temp Pulse Resp B/P (MAP) Pulse Ox O2 Delivery O2 Flow Rate FiO2 01/19/19 15:46 97.6 70 16 103/68 (80) 96 01/19/19 06:38 Room Air I&O Intake and Output 01/19/19 07:00 Intake Total 1200 ml Balance 1200 ml Intake Oral 1200 ml # Bowel Movements 1 Current Medications: Meds: Current Medications Acetaminophen (Tylenol) 650 mg PRN Q4HRS PRN PO FEVER; Start 01/08/19 at 21:30 ; Stop 01/09/19 at 21:29; Status Cancel Acetaminophen (Tylenol) 650 mg PRN Q6HRS PRN PO PAIN / TEMP; Start 01/09/19 at 00:30; Status Cancel Multi-Ingredient Ointment (Analgesic [place]) 1 she PRN QID PRN TP MUSCLE PAIN; Start 01/09/19 at 00:30 Al Hydroxide/Mg Hydroxide (Mylanta Plus Xs) 15 ml PRN AFTMEALHC PRN PO DYSPEPSIA; Start 01/09/19 at 00:30 Magnesium Hydroxide (Milk Of Magnesia) 2,400 mg PRN QHS PRN PO CONSTIPATION; Start 01/09/19 at 00:30 Divalproex Sodium (Depakote Sprinkles) 125 mg BID PO Last administered on at 07:52; Start 01/09/19 at 09:00; Stop 01/10/19 at 17:11; Status DC Estradiol (Estrace) 0.5 mg DAILY PO Last administered on 01/19/19at 07:38; Start 01/09/19 at 09:00 Haloperidol Lactate (Haldol) 5 mg PRN DAILY PRN IM ANXIETY / AGITATION; Start 01/09/19 at 02:15; Stop 01/12/19 at 16:48; Status DC Lorazepam (Ativan) 0.5 mg PRN DAILY PRN PO ANXIETY; Start 01/09/19 at 02:15 Lorazepam (Ativan) 0.5 mg TID PO Last administered on 01/19/19 21:15; Start at 09:00 Risperidone (RisperDAL) 2 mg BID PO Last administered on 01/17/19 07:55; Start 01/09/19 at 09:00; Stop 01/17/19 at 16:41; Status DC Acetaminophen (Tylenol) 650 mg PRN Q6HRS PRN PO PAIN / TEMP; Start 01/09/19 at 02:15 Vitamin D (Vitamin D3) 50,000 unit WEEKLY PO Last administered on 01/16/19 07: 27; Start 01/09/19 at 09:00 Dextromethorphan/ Quinidine (Nuedexta 20-10 Mg Capsule) 1 cap BID PO Last administered on 01/19/19 21:15; Start 01/09/19 at 09:00 Senna/Docusate Sodium (Senna Plus) 1 tab HS PO Last administered on 01/19/19 21:14; Start 01/09/19 at 21:00 Tamsulosin HCl (Flomax) 0.4 mg HS PO Last administered on 01/19/19 21:15; Start 01/09/19 at 21:00 Acetaminophen/ Codeine Phosphate (Tylenol #3) 1 tab PRN Q4HRS PRN PO PAIN; Start 01/09/19 at 02:15 Acetaminophen/ Codeine Phosphate (Tylenol #3) 2 tab PRN Q4HRS PRN PO PAIN; Start 01/09/19 at 02:15 Non-Formulary Medication (Amino Acids/ Protein Hydrolys (Pro-Stat [facility] Liquid Packet)) 30 ml DAILY PO ; Start 01/09/19 at 09:00; Status UNV Non-Formulary Medication (Carboxymethylcellulos/ Glycerin (Refresh Optive Eye Drops)) 1 drop HS OD ; Start 01/09/19 at 21:00; Stop 01/09/19 at 21:00; Status DC Artificial Tears (Refresh Classic) 1 drop QID OU ; Start 01/09/19 at 09:00; Stop 01/09/19 at 09:00; Status DC Dorzolamide/ Timolol (Cosopt) 1 drop BID OD Last administered on 01/19/19 21: 16; Start 01/09/19 at 09:00 Lactulose (Lactulose) 20 gm BID PO Last administered on 01/19/19 21:14; Start 01/09/19 at 09:00 Latanoprost (Xalatan) 1 drop QHS OD Last administered on 01/19/19 21:15; Start 01/09/19 at 21:00 Levothyroxine Sodium (Synthroid) 25 mcg DAILY06 PO Last administered on 04:52; Start 01/09/19 at 06:00 Multivitamins/ Calcium (Thera-M Plus) 1 tab DAILY PO Last administered on 07:36; Start 01/09/19 at 09:00 Polyethylene Glycol (miraLAX) 17 gm DAILY PO Last administered on 01/19/19 07: 35; Start 01/09/19 at 09:00 Famotidine (Pepcid) 20 mg BID PO Last administered on 01/19/19 21:15; Start at 09:00 Erythromycin (Romycin) 1 inch DAILY OS Last administered on 01/10/19 07:53; Start 01/09/19 at 09:00; Stop 01/10/19 at 10:32; Status DC Divalproex Sodium (Depakote Sprinkles) 250 mg BID PO Last administered on 07:41; Start 01/10/19 at 21:00; Stop 01/13/19 at 18:48; Status DC Trazodone HCl (Desyrel) 50 mg QHS PO Last administered on 01/19/19 21:15; Start 01/10/19 at 21:00 Trazodone HCl (Desyrel) 50 mg PRN QHS PRN PO INSOMNIA; Start 01/10/19 at 17:15 Divalproex Sodium (Depakote Sprinkles) 500 mg BID PO Last administered on 21:14; Start 01/13/19 at 21:00 Risperidone (RisperDAL) 1.5 mg DAILY PO Last administered on 01/19/19 07:36; Start 01/18/19 at 09:00; Stop 01/20/19 at 08:59 Risperidone (RisperDAL) 2 mg QHS PO Last administered on 3/31/19at 21:14; Start 01/17/19 at 21:00; Stop 01/20/19 at 20:59 Risperidone (RisperDAL) 1.5 mg BID PO ; Start 01/20/19 at 09:00 Active Scripts Active Reported Ranitidine Hcl 150 Mg Tablet 150 Mg PO BID Tylenol (Acetaminophen) 325 Mg Tablet 650 Mg PO PRN Q6HRS Flomax (Tamsulosin Hcl) 0.4 Mg Cap.er.24h 0.4 Mg PO HS Senna Plus Tablet (Sennosides/Docusate Sodium) 1 Each Tablet 1 Each PO HS Risperidone 2 Mg Tablet 2 Mg PO BID Refresh Optive Eye Drops (Carboxymethylcellulos/Glycerin) 15 Ml Drops 1 Drop OU QID Refresh Optive Eye Drops (Carboxymethylcellulos/Glycerin) 15 Ml Drops 1 Drop OD HS Pro-Stat [facility] Liquid Packet (Amino Acids/Protein Hydrolys) 30 Ml Liquid.pkt 30 Ml PO DAILY Miralax (Polyethylene Glycol 3350) 17 Gm Powd.pack 17 Gm PO DAILY Nuedexta 20-10 Mg Capsule (Dextromethorphan Hbr/Quinidine) 1 Each Capsule 1 Each PO BID Multivitamins (Multivitamin) 1 Each Tablet 1 Each PO DAILY Levothyroxine Sodium 25 Mcg Tablet 25 Mcg PO DAILYAC Latanoprost 2.5 Ml Drops 1 Drop OD QHS Lactulose 10 Gm/15 Ml Solution 20 Gm PO BID Haloperidol Lactate 5 Mg/1 Ml Vial 5 Mg IM PRN DAILY PRN Estradiol 0.5 Mg Tablet 0.5 Mg PO DAILY Erythromycin (Erythromycin Base) 1 Gm Oint...g. 1 She OS BID Dorzolamide-Timolol Eye Drops (Dorzolamide Hcl/Timolol Maleat) 10 Ml Drops 1 Drop OD BID Depakote (Divalproex Sodium) 500 Mg Tablet.dr 125 Mg PO BID D3-50 (Cholecalciferol (Vitamin D3)) 50,000 Unit Capsule 50,000 Unit PO WEEKLY SUNDAY Lorazepam 0.5 Mg Tablet 0.5 Mg PO PRN DAILY PRN Lorazepam 0.5 Mg Tablet 0.5 Mg PO TID Tylenol With Codeine #3 Tablet (Acetaminophen With Codeine) 1 Each Tablet 2 Each PO PRN Q4HRS PRN Tylenol With Codeine #3 Tablet (Acetaminophen With Codeine) 1 Each Tablet 1 Each PO PRN Q4HRS PRN I have reviewed the current psychotropics carefully including drug interactions. Risk benefit ratio favors no change other than as noted in my dictated progress note. Diagnosis: Problems: (1) Medical clearance for psychiatric admission (2) Anxiety disorder (3) Major depressive disorder, recurrent episode (4) Impulse control disorder (5) Schizoaffective disorder, chronic condition with acute exacerbation (6) Mild cognitive disorder LEENA CHINCHILLA MD Jan 19, 2019 22:40
[2019-01-20] MEDS: LEVOTHYROXINE 25 MCG TABLET. PO SCH (06:14)
[2019-01-20 06:46] VITALS: BP 108/72
[2019-01-20] MEDS: POLYETHYLENE GLYCOL 3350 17 GM PACKET. PO SCH (08:12)
[2019-01-20] MEDS: DORZOLAMIDE/TIMOLOL 2%/0.5% OPHTH SOLUTION 10ML BOTTLE. OD SCH ×2 (08:12→19:53)
[2019-01-20] MEDS: MULTIVITAMIN with MINERAL TABLET. PO SCH (08:12)
[2019-01-20] MEDS: DIVALPROEX 125 MG CAP.SPRINK PO SCH ×2 (08:12→19:52)
[2019-01-20] MEDS: FAMOTIDINE 20 MG TABLET PO SCH ×2 (08:13→19:52)
[2019-01-20] MEDS: LACTULOSE 20 GM/30 ML SOLUTION. PO SCH ×2 (08:13→19:50)
[2019-01-20] MEDS: DEXTROMETHORPHAN/QUINIDINE 20/10MG CAPSULE. PO SCH ×2 (08:13→19:54)
[2019-01-20] MEDS: risperiDONE 0.5 MG TABLET. PO SCH ×2 (08:13→19:52)
[2019-01-20] MEDS: ESTRADIOL 1 MG TABLET PO SCH (08:13)
[2019-01-20] MEDS: LORazepam 0.5 MG TABLET PO SCH ×3 (08:15→19:51)
[2019-01-20 16:16] VITALS: BP 110/78
[2019-01-20] MEDS: TAMSULOSIN 0.4 MG CAP.ER.24H. PO SCH (19:51)
[2019-01-20] MEDS: traZODone 50 MG TABLET. PO SCH (19:51)
[2019-01-20] MEDS: SENNOSIDES/DOCUSATE 8.6/50MG TABLET. PO SCH (19:52)
[2019-01-20] MEDS: LATANOPROST 0.005% OPHTH SOLUTION 2.5ML BOTTLE. OD SCH (19:53)
--- NOTE | 2019-01-20 22:37 | PN ---
DATE: 01/17/2019 PSYCHIATRIC PROGRESS NOTE This late entry of 01/17/2019 covers elements not covered in my initial note. SUBJECTIVE: I met with the patient in the evening. He has been somewhat drowsy in the evening, took a nap in the afternoon. He had some visitors, slept 6-3/4 hours. REVIEW OF SYSTEMS: Positive for some impairment of ambulation and tiredness. No CV, , pulmonary, eye, ENT system symptoms on review. MENTAL STATUS EXAM: The patient is oriented to himself and situation. Speech has some latency, low in rate and rhythm, often responses monosyllabic. Abstraction fair, computation impaired, language function intact, attention span short. Mood and affect somewhat withdrawn. LABORATORY DATA: Reviewed. IMPRESSION: Unchanged from initial note. PLAN: The patient is currently on Risperdal 2 mg b.i.d., we will reduce to 1.5 mg in the morning and 2 mg in the evening. Valproic acid level therapeutic at 57. MAN Bessy CHINCHILLA MD DR: MARY/gage JOB#: [id number] / [id number]
--- NOTE | 2019-01-20 22:50 | PDOC ---
Exam Note: Adrián Note: Please also refer to the separate dictated note~for this date of service dictated separately.~Patient seen individually. Discussed the patient with Nursing staff reviewed the chart.~Reviewed interim history and current functioning. Reviewed vital signs,~Labs/ Radiology~and current medications noted below. Continue current treatment with the changes noted in the dictated addendum note Assessment: Vital Signs: Vital Signs Date Time Temp Pulse Resp B/P (MAP) Pulse Ox O2 Delivery O2 Flow Rate FiO2 01/20/19 16:16 97.6 71 21 110/78 (89) 97 01/19/19 06:38 Room Air I&O Intake and Output 01/20/19 06:59 Intake Total 1200 ml Balance 1200 ml Intake Oral 1200 ml # Voids 1 Current Medications: Meds: Current Medications Acetaminophen (Tylenol) 650 mg PRN Q4HRS PRN PO FEVER; Start 01/08/19 at 21:30 ; Stop 01/09/19 at 21:29; Status Cancel Acetaminophen (Tylenol) 650 mg PRN Q6HRS PRN PO PAIN / TEMP; Start 01/09/19 at 00:30; Status Cancel Multi-Ingredient Ointment (Analgesic [place]) 1 she PRN QID PRN TP MUSCLE PAIN; Start 01/09/19 at 00:30 Al Hydroxide/Mg Hydroxide (Mylanta Plus Xs) 15 ml PRN AFTMEALHC PRN PO DYSPEPSIA; Start 01/09/19 at 00:30 Magnesium Hydroxide (Milk Of Magnesia) 2,400 mg PRN QHS PRN PO CONSTIPATION; Start 01/09/19 at 00:30 Divalproex Sodium (Depakote Sprinkles) 125 mg BID PO Last administered on at 07:52; Start 01/09/19 at 09:00; Stop 01/10/19 at 17:11; Status DC Estradiol (Estrace) 0.5 mg DAILY PO Last administered on 01/20/19at 08:13; Start 01/09/19 at 09:00 Haloperidol Lactate (Haldol) 5 mg PRN DAILY PRN IM ANXIETY / AGITATION; Start 01/09/19 at 02:15; Stop 01/12/19 at 16:48; Status DC Lorazepam (Ativan) 0.5 mg PRN DAILY PRN PO ANXIETY; Start 01/09/19 at 02:15 Lorazepam (Ativan) 0.5 mg TID PO Last administered on 01/20/19 19:51; Start at 09:00 Risperidone (RisperDAL) 2 mg BID PO Last administered on 01/17/19 07:55; Start 01/09/19 at 09:00; Stop 01/17/19 at 16:41; Status DC Acetaminophen (Tylenol) 650 mg PRN Q6HRS PRN PO PAIN / TEMP; Start 01/09/19 at 02:15 Vitamin D (Vitamin D3) 50,000 unit WEEKLY PO Last administered on 01/16/19 07: 27; Start 01/09/19 at 09:00 Dextromethorphan/ Quinidine (Nuedexta 20-10 Mg Capsule) 1 cap BID PO Last administered on 01/20/19 19:54; Start 01/09/19 at 09:00 Senna/Docusate Sodium (Senna Plus) 1 tab HS PO Last administered on 01/20/19 19 :52; Start 01/09/19 at 21:00 Tamsulosin HCl (Flomax) 0.4 mg HS PO Last administered on 01/20/19 19:51; Start 01/09/19 at 21:00 Acetaminophen/ Codeine Phosphate (Tylenol #3) 1 tab PRN Q4HRS PRN PO PAIN; Start 01/09/19 at 02:15 Acetaminophen/ Codeine Phosphate (Tylenol #3) 2 tab PRN Q4HRS PRN PO PAIN; Start 01/09/19 at 02:15 Non-Formulary Medication (Amino Acids/ Protein Hydrolys (Pro-Stat [facility] Liquid Packet)) 30 ml DAILY PO ; Start 01/09/19 at 09:00; Status UNV Non-Formulary Medication (Carboxymethylcellulos/ Glycerin (Refresh Optive Eye Drops)) 1 drop HS OD ; Start 01/09/19 at 21:00; Stop 01/09/19 at 21:00; Status DC Artificial Tears (Refresh Classic) 1 drop QID OU ; Start 01/09/19 at 09:00; Stop 01/09/19 at 09:00; Status DC Dorzolamide/ Timolol (Cosopt) 1 drop BID OD Last administered on 01/20/19 19:53 ; Start 01/09/19 at 09:00 Lactulose (Lactulose) 20 gm BID PO Last administered on 01/20/19 19:50; Start 01/09/19 at 09:00 Latanoprost (Xalatan) 1 drop QHS OD Last administered on 01/20/19 19:53; Start 01/09/19 at 21:00 Levothyroxine Sodium (Synthroid) 25 mcg DAILY06 PO Last administered on 06:14; Start 01/09/19 at 06:00 Multivitamins/ Calcium (Thera-M Plus) 1 tab DAILY PO Last administered on 08:12; Start 01/09/19 at 09:00 Polyethylene Glycol (miraLAX) 17 gm DAILY PO Last administered on 01/20/19 08: 12; Start 01/09/19 at 09:00 Famotidine (Pepcid) 20 mg BID PO Last administered on 01/20/19 19:52; Start at 09:00 Erythromycin (Romycin) 1 inch DAILY OS Last administered on 01/10/19 07:53; Start 01/09/19 at 09:00; Stop 01/10/19 at 10:32; Status DC Divalproex Sodium (Depakote Sprinkles) 250 mg BID PO Last administered on 07:41; Start 01/10/19 at 21:00; Stop 01/13/19 at 18:48; Status DC Trazodone HCl (Desyrel) 50 mg QHS PO Last administered on 01/20/19 19:51; Start 01/10/19 at 21:00 Trazodone HCl (Desyrel) 50 mg PRN QHS PRN PO INSOMNIA; Start 01/10/19 at 17:15 Divalproex Sodium (Depakote Sprinkles) 500 mg BID PO Last administered on 19:52; Start 01/13/19 at 21:00 Risperidone (RisperDAL) 1.5 mg DAILY PO Last administered on 01/19/19 07:36; Start 01/18/19 at 09:00; Stop 01/20/19 at 08:59; Status DC Risperidone (RisperDAL) 2 mg QHS PO Last administered on 3/31/19at 21:14; Start 01/17/19 at 21:00; Stop 01/20/19 at 20:59; Status DC Risperidone (RisperDAL) 1.5 mg BID PO Last administered on 01/20/19at 19:52; Start 01/20/19 at 09:00 Active Scripts Active Reported Ranitidine Hcl 150 Mg Tablet 150 Mg PO BID Tylenol (Acetaminophen) 325 Mg Tablet 650 Mg PO PRN Q6HRS Flomax (Tamsulosin Hcl) 0.4 Mg Cap.er.24h 0.4 Mg PO HS Senna Plus Tablet (Sennosides/Docusate Sodium) 1 Each Tablet 1 Each PO HS Risperidone 2 Mg Tablet 2 Mg PO BID Refresh Optive Eye Drops (Carboxymethylcellulos/Glycerin) 15 Ml Drops 1 Drop OU QID Refresh Optive Eye Drops (Carboxymethylcellulos/Glycerin) 15 Ml Drops 1 Drop OD HS Pro-Stat [facility] Liquid Packet (Amino Acids/Protein Hydrolys) 30 Ml Liquid.pkt 30 Ml PO DAILY Miralax (Polyethylene Glycol 3350) 17 Gm Powd.pack 17 Gm PO DAILY Nuedexta 20-10 Mg Capsule (Dextromethorphan Hbr/Quinidine) 1 Each Capsule 1 Each PO BID Multivitamins (Multivitamin) 1 Each Tablet 1 Each PO DAILY Levothyroxine Sodium 25 Mcg Tablet 25 Mcg PO DAILYAC Latanoprost 2.5 Ml Drops 1 Drop OD QHS Lactulose 10 Gm/15 Ml Solution 20 Gm PO BID Haloperidol Lactate 5 Mg/1 Ml Vial 5 Mg IM PRN DAILY PRN Estradiol 0.5 Mg Tablet 0.5 Mg PO DAILY Erythromycin (Erythromycin Base) 1 Gm Oint...g. 1 She OS BID Dorzolamide-Timolol Eye Drops (Dorzolamide Hcl/Timolol Maleat) 10 Ml Drops 1 Drop OD BID Depakote (Divalproex Sodium) 500 Mg Tablet.dr 125 Mg PO BID D3-50 (Cholecalciferol (Vitamin D3)) 50,000 Unit Capsule 50,000 Unit PO WEEKLY SUNDAY Lorazepam 0.5 Mg Tablet 0.5 Mg PO PRN DAILY PRN Lorazepam 0.5 Mg Tablet 0.5 Mg PO TID Tylenol With Codeine #3 Tablet (Acetaminophen With Codeine) 1 Each Tablet 2 Each PO PRN Q4HRS PRN Tylenol With Codeine #3 Tablet (Acetaminophen With Codeine) 1 Each Tablet 1 Each PO PRN Q4HRS PRN I have reviewed the current psychotropics carefully including drug interactions. Risk benefit ratio favors no change other than as noted in my dictated progress note. Diagnosis: Problems: (1) Medical clearance for psychiatric admission (2) Anxiety disorder (3) Major depressive disorder, recurrent episode (4) Impulse control disorder (5) Schizoaffective disorder, chronic condition with acute exacerbation (6) Mild cognitive disorder LEENA CHINCHILLA MD Jan 20, 2019 22:50
--- NOTE | 2019-01-20 23:41 | PN ---
DATE: 01/19/2019 PSYCHIATRIC PROGRESS NOTE This late entry 01/19/2019 covers elements not covered in my initial note. SUBJECTIVE: I met with the patient in the evening. The patient slept 5-1/2 hours previous night. Overall, the patient remains somewhat withdrawn, but doing better, less agitated, seems less psychotic, standing more erect. REVIEW OF SYSTEMS: Still positive for some tiredness. No CV, , pulmonary, eye, ENT system symptoms on review. MENTAL STATUS EXAM: Oriented to himself and situation. Speech moderate latency, low in rate and rhythm, low in volume, often responses monosyllabic. Abstraction fair, computation impaired, language function intact, attention span short. Mood and affect somewhat withdrawn. LABORATORY DATA: Reviewed. IMPRESSION: Unchanged from initial note. PLAN: No change from initial note. MAN Bessy CHINCHILLA MD DR: MARY/gage JOB#: [id number] / [id number]
--- NOTE | 2019-01-20 23:45 | PN ---
DATE: 01/18/2019 PSYCHIATRIC PROGRESS NOTE This late entry 01/18/2019 covers elements not covered in my initial note. SUBJECTIVE: I met with the patient in the evening. The patient slept 7-1/4 hours previous night. Per nursing report, he has had a good day. He has been cooperative, less agitation, compliant with medications. REVIEW OF SYSTEMS: Still positive for some tiredness, but he is walking more erect. No CV, , pulmonary, eye, ENT system symptoms on review. MENTAL STATUS EXAM: Oriented to himself and situation. Speech moderate latency, low in rate and rhythm, often responses monosyllabic. Abstraction fair, computation impaired, language function intact, attention span short. Mood and affect withdrawn. LABORATORY DATA: Reviewed. He is less psychotic. IMPRESSION: Unchanged from initial note. PLAN: Starting 01/20/2019, we will reduce the Risperdal down to 1.5 mg twice a day given his cytochrome P450 isoenzyme assays that I have received. Rest unchanged. MAN Bessy CHINCHILLA MD DR: MARY/gage JOB#: [id number] / [id number]
[2019-01-21] MEDS: LEVOTHYROXINE 25 MCG TABLET. PO SCH (05:01)
[2019-01-21 06:02] VITALS: BP 123/81
[2019-01-21] MEDS: FAMOTIDINE 20 MG TABLET PO SCH ×2 (08:11→19:45)
[2019-01-21] MEDS: DIVALPROEX 125 MG CAP.SPRINK PO SCH ×2 (08:11→19:41)
[2019-01-21] MEDS: DEXTROMETHORPHAN/QUINIDINE 20/10MG CAPSULE. PO SCH ×2 (08:12→19:41)
[2019-01-21] MEDS: risperiDONE 0.5 MG TABLET. PO SCH ×2 (08:12→19:41)
[2019-01-21] MEDS: LACTULOSE 20 GM/30 ML SOLUTION. PO SCH ×2 (08:12→19:40)
[2019-01-21] MEDS: MULTIVITAMIN with MINERAL TABLET. PO SCH (08:12)
[2019-01-21] MEDS: ESTRADIOL 1 MG TABLET PO SCH (08:12)
[2019-01-21] MEDS: POLYETHYLENE GLYCOL 3350 17 GM PACKET. PO SCH (08:12)
[2019-01-21] MEDS: DORZOLAMIDE/TIMOLOL 2%/0.5% OPHTH SOLUTION 10ML BOTTLE. OD SCH ×2 (08:15→19:45)
[2019-01-21] MEDS: LORazepam 0.5 MG TABLET PO SCH ×3 (08:15→19:40)
[2019-01-21 15:38] VITALS: BP 98/62
[2019-01-21] MEDS: SENNOSIDES/DOCUSATE 8.6/50MG TABLET. PO SCH (19:41)
[2019-01-21] MEDS: TAMSULOSIN 0.4 MG CAP.ER.24H. PO SCH (19:41)
[2019-01-21] MEDS: traZODone 50 MG TABLET. PO SCH (19:45)
[2019-01-21] MEDS: LATANOPROST 0.005% OPHTH SOLUTION 2.5ML BOTTLE. OD SCH (19:45)
--- NOTE | 2019-01-21 22:35 | PDOC ---
Exam Note: Adrián Note: Please also refer to the separate dictated note~for this date of service dictated separately.~Patient seen individually. Discussed the patient with Nursing staff reviewed the chart.~Reviewed interim history and current functioning. Reviewed vital signs,~Labs/ Radiology~and current medications noted below. Continue current treatment with the changes noted in the dictated addendum note Assessment: Vital Signs: Vital Signs Date Time Temp Pulse Resp B/P (MAP) Pulse Ox O2 Delivery O2 Flow Rate FiO2 01/21/19 15:38 97.5 64 16 98/62 (74) 99 Room Air I&O Intake and Output 01/21/19 07:00 Intake Total 780 ml Balance 780 ml Intake Oral 780 ml # Voids 1 # Bowel Movements 1 Current Medications: Meds: Current Medications Acetaminophen (Tylenol) 650 mg PRN Q4HRS PRN PO FEVER; Start 01/08/19 at 21:30 ; Stop 01/09/19 at 21:29; Status Cancel Acetaminophen (Tylenol) 650 mg PRN Q6HRS PRN PO PAIN / TEMP; Start 01/09/19 at 00:30; Status Cancel Multi-Ingredient Ointment (Analgesic [place]) 1 she PRN QID PRN TP MUSCLE PAIN; Start 01/09/19 at 00:30 Al Hydroxide/Mg Hydroxide (Mylanta Plus Xs) 15 ml PRN AFTMEALHC PRN PO DYSPEPSIA; Start 01/09/19 at 00:30 Magnesium Hydroxide (Milk Of Magnesia) 2,400 mg PRN QHS PRN PO CONSTIPATION; Start 01/09/19 at 00:30 Divalproex Sodium (Depakote Sprinkles) 125 mg BID PO Last administered on at 07:52; Start 01/09/19 at 09:00; Stop 01/10/19 at 17:11; Status DC Estradiol (Estrace) 0.5 mg DAILY PO Last administered on 01/21/19at 08:12; Start 01/09/19 at 09:00 Haloperidol Lactate (Haldol) 5 mg PRN DAILY PRN IM ANXIETY / AGITATION; Start 01/09/19 at 02:15; Stop 01/12/19 at 16:48; Status DC Lorazepam (Ativan) 0.5 mg PRN DAILY PRN PO ANXIETY; Start 01/09/19 at 02:15 Lorazepam (Ativan) 0.5 mg TID PO Last administered on 01/21/19 19:40; Start at 09:00 Risperidone (RisperDAL) 2 mg BID PO Last administered on 01/17/19 07:55; Start 01/09/19 at 09:00; Stop 01/17/19 at 16:41; Status DC Acetaminophen (Tylenol) 650 mg PRN Q6HRS PRN PO PAIN / TEMP; Start 01/09/19 at 02:15 Vitamin D (Vitamin D3) 50,000 unit WEEKLY PO Last administered on 01/16/19 07: 27; Start 01/09/19 at 09:00 Dextromethorphan/ Quinidine (Nuedexta 20-10 Mg Capsule) 1 cap BID PO Last administered on 01/21/19 19:41; Start 01/09/19 at 09:00 Senna/Docusate Sodium (Senna Plus) 1 tab HS PO Last administered on 01/21/19 19 :41; Start 01/09/19 at 21:00 Tamsulosin HCl (Flomax) 0.4 mg HS PO Last administered on 01/21/19 19:41; Start 01/09/19 at 21:00 Acetaminophen/ Codeine Phosphate (Tylenol #3) 1 tab PRN Q4HRS PRN PO PAIN; Start 01/09/19 at 02:15 Acetaminophen/ Codeine Phosphate (Tylenol #3) 2 tab PRN Q4HRS PRN PO PAIN; Start 01/09/19 at 02:15 Non-Formulary Medication (Amino Acids/ Protein Hydrolys (Pro-Stat [facility] Liquid Packet)) 30 ml DAILY PO ; Start 01/09/19 at 09:00; Status UNV Non-Formulary Medication (Carboxymethylcellulos/ Glycerin (Refresh Optive Eye Drops)) 1 drop HS OD ; Start 01/09/19 at 21:00; Stop 01/09/19 at 21:00; Status DC Artificial Tears (Refresh Classic) 1 drop QID OU ; Start 01/09/19 at 09:00; Stop 01/09/19 at 09:00; Status DC Dorzolamide/ Timolol (Cosopt) 1 drop BID OD Last administered on 01/21/19 19:45 ; Start 01/09/19 at 09:00 Lactulose (Lactulose) 20 gm BID PO Last administered on 01/21/19 19:40; Start 01/09/19 at 09:00 Latanoprost (Xalatan) 1 drop QHS OD Last administered on 01/21/19 19:45; Start 01/09/19 at 21:00 Levothyroxine Sodium (Synthroid) 25 mcg DAILY06 PO Last administered on 05:01; Start 01/09/19 at 06:00 Multivitamins/ Calcium (Thera-M Plus) 1 tab DAILY PO Last administered on 08:12; Start 01/09/19 at 09:00 Polyethylene Glycol (miraLAX) 17 gm DAILY PO Last administered on 01/21/19 08: 12; Start 01/09/19 at 09:00 Famotidine (Pepcid) 20 mg BID PO Last administered on 01/21/19 19:45; Start at 09:00 Erythromycin (Romycin) 1 inch DAILY OS Last administered on 01/10/19 07:53; Start 01/09/19 at 09:00; Stop 01/10/19 at 10:32; Status DC Divalproex Sodium (Depakote Sprinkles) 250 mg BID PO Last administered on 07:41; Start 01/10/19 at 21:00; Stop 01/13/19 at 18:48; Status DC Trazodone HCl (Desyrel) 50 mg QHS PO Last administered on 01/21/19 19:45; Start 01/10/19 at 21:00 Trazodone HCl (Desyrel) 50 mg PRN QHS PRN PO INSOMNIA; Start 01/10/19 at 17:15 Divalproex Sodium (Depakote Sprinkles) 500 mg BID PO Last administered on 19:41; Start 01/13/19 at 21:00 Risperidone (RisperDAL) 1.5 mg DAILY PO Last administered on 01/19/19 07:36; Start 01/18/19 at 09:00; Stop 01/20/19 at 08:59; Status DC Risperidone (RisperDAL) 2 mg QHS PO Last administered on 3/31/19at 21:14; Start 01/17/19 at 21:00; Stop 01/20/19 at 20:59; Status DC Risperidone (RisperDAL) 1.5 mg BID PO Last administered on 01/21/19at 19:41; Start 01/20/19 at 09:00 Active Scripts Active Reported Ranitidine Hcl 150 Mg Tablet 150 Mg PO BID Tylenol (Acetaminophen) 325 Mg Tablet 650 Mg PO PRN Q6HRS Flomax (Tamsulosin Hcl) 0.4 Mg Cap.er.24h 0.4 Mg PO HS Senna Plus Tablet (Sennosides/Docusate Sodium) 1 Each Tablet 1 Each PO HS Risperidone 2 Mg Tablet 2 Mg PO BID Refresh Optive Eye Drops (Carboxymethylcellulos/Glycerin) 15 Ml Drops 1 Drop OU QID Refresh Optive Eye Drops (Carboxymethylcellulos/Glycerin) 15 Ml Drops 1 Drop OD HS Pro-Stat [facility] Liquid Packet (Amino Acids/Protein Hydrolys) 30 Ml Liquid.pkt 30 Ml PO DAILY Miralax (Polyethylene Glycol 3350) 17 Gm Powd.pack 17 Gm PO DAILY Nuedexta 20-10 Mg Capsule (Dextromethorphan Hbr/Quinidine) 1 Each Capsule 1 Each PO BID Multivitamins (Multivitamin) 1 Each Tablet 1 Each PO DAILY Levothyroxine Sodium 25 Mcg Tablet 25 Mcg PO DAILYAC Latanoprost 2.5 Ml Drops 1 Drop OD QHS Lactulose 10 Gm/15 Ml Solution 20 Gm PO BID Haloperidol Lactate 5 Mg/1 Ml Vial 5 Mg IM PRN DAILY PRN Estradiol 0.5 Mg Tablet 0.5 Mg PO DAILY Erythromycin (Erythromycin Base) 1 Gm Oint...g. 1 She OS BID Dorzolamide-Timolol Eye Drops (Dorzolamide Hcl/Timolol Maleat) 10 Ml Drops 1 Drop OD BID Depakote (Divalproex Sodium) 500 Mg Tablet.dr 125 Mg PO BID D3-50 (Cholecalciferol (Vitamin D3)) 50,000 Unit Capsule 50,000 Unit PO WEEKLY SUNDAY Lorazepam 0.5 Mg Tablet 0.5 Mg PO PRN DAILY PRN Lorazepam 0.5 Mg Tablet 0.5 Mg PO TID Tylenol With Codeine #3 Tablet (Acetaminophen With Codeine) 1 Each Tablet 2 Each PO PRN Q4HRS PRN Tylenol With Codeine #3 Tablet (Acetaminophen With Codeine) 1 Each Tablet 1 Each PO PRN Q4HRS PRN I have reviewed the current psychotropics carefully including drug interactions. Risk benefit ratio favors no change other than as noted in my dictated progress note. Diagnosis: Problems: (1) Medical clearance for psychiatric admission (2) Anxiety disorder (3) Major depressive disorder, recurrent episode (4) Impulse control disorder (5) Schizoaffective disorder, chronic condition with acute exacerbation (6) Mild cognitive disorder LEENA CHINCHILLA MD Jan 21, 2019 22:35
--- NOTE | 2019-01-22 04:09 | PN ---
DATE: 01/20/2019 PSYCHOLOGICAL PROGRESS NOTE This late entry for 01/20/2019 covers elements not covered in my initial note. SUBJECTIVE: I met with the patient in the evening. The patient slept 7-1/2 hours previous night. He is doing reasonably well, somewhat withdrawn, but less hunched over. REVIEW OF SYSTEMS: Positive for some tiredness. No CV, , pulmonary, eye, ENT system symptoms on review. MENTAL STATUS EXAM: Oriented to himself and situation. Speech moderate latency, low in rate and rhythm, low in volume, often responses monosyllabic. Abstraction fair, computation impaired, language function intact, attention span short. Mood and affect somewhat withdrawn. LABORATORY DATA: Reviewed. IMPRESSION: Unchanged from initial note. PLAN: No change from initial note and we reduced the Risperdal consequent to the cytochrome P450 assay that was completed on him indicating he would need a lower dosage. Rest unchanged for now. MAN Bessy CHINCHILLA MD DR: MARY/gage JOB#: [id number] / [id number]
[2019-01-22] MEDS: LEVOTHYROXINE 25 MCG TABLET. PO SCH (05:23)
[2019-01-22 05:42] VITALS: BP 94/62
[2019-01-22 07:50] LABS: BASO % 1 % (0-3); EOS # 0.1 x10^3/uL (0.0-0.7); EOS % 2 % (0-3); HEMATOCRIT 35.6 % (39.0-53.0); HEMOGLOBIN 11.8 g/dL (13.0-17.5); LYMPH # 1.2 x10^3/uL (1.0-4.8); LYMPH % 23 % (24-48); MEAN CORPUSCULAR HEMOGLOBIN 29 pg (25-35); MEAN CORPUSCULAR HGB CONC 33 g/dL (31-37); MEAN CORPUSCULAR VOLUME 87 fL (79-100); MONO # 0.7 x10^3/uL (0.0-1.1); MONO % 13 % (0-9); NEUT # 3.3 x10^3uL (1.8-7.7); NEUT % 61 % (31-73); PLATELET COUNT 203 x10^3/uL (140-400); RED BLOOD COUNT 4.09 x10^6/uL (4.30-5.70); RED CELL DISTRIBUTION WIDTH 13.8 % (11.5-14.5); WHITE BLOOD COUNT 5.3 x10^3/uL (4.0-11.0)
[2019-01-22 08:02] LABS: ALBUMIN 2.9 g/dL (3.4-5.0); ALBUMIN/GLOBULIN RATIO 0.9 (1.0-1.7); CALCIUM 8.9 mg/dL (8.5-10.1); CREATININE 0.9 mg/dL (0.7-1.3); GFR 84.7; POTASSIUM 4.6 mmol/L (3.5-5.1); TOTAL BILIRUBIN 0.4 mg/dL (0.2-1.0); TOTAL PROTEIN 6.1 g/dL (6.4-8.2)
[2019-01-22] MEDS: POLYETHYLENE GLYCOL 3350 17 GM PACKET. PO SCH (08:02)
[2019-01-22] MEDS: LACTULOSE 20 GM/30 ML SOLUTION. PO SCH ×2 (08:03→19:25)
[2019-01-22] MEDS: LORazepam 0.5 MG TABLET PO SCH ×3 (08:03→19:28)
[2019-01-22] MEDS: DIVALPROEX 125 MG CAP.SPRINK PO SCH ×2 (08:03→19:24)
[2019-01-22] MEDS: FAMOTIDINE 20 MG TABLET PO SCH ×2 (08:03→19:24)
[2019-01-22] MEDS: risperiDONE 0.5 MG TABLET. PO SCH ×2 (08:03→19:25)
[2019-01-22] MEDS: MULTIVITAMIN with MINERAL TABLET. PO SCH (08:03)
[2019-01-22] MEDS: DEXTROMETHORPHAN/QUINIDINE 20/10MG CAPSULE. PO SCH ×2 (08:04→19:28)
[2019-01-22] MEDS: DORZOLAMIDE/TIMOLOL 2%/0.5% OPHTH SOLUTION 10ML BOTTLE. OD SCH ×2 (08:05→19:29)
[2019-01-22] MEDS: ESTRADIOL 1 MG TABLET PO SCH (08:05)
[2019-01-22 16:39] VITALS: BP 91/58
[2019-01-22] MEDS: SENNOSIDES/DOCUSATE 8.6/50MG TABLET. PO SCH (19:24)
[2019-01-22] MEDS: TAMSULOSIN 0.4 MG CAP.ER.24H. PO SCH (19:25)
[2019-01-22] MEDS: traZODone 50 MG TABLET. PO SCH (19:28)
[2019-01-22] MEDS: LATANOPROST 0.005% OPHTH SOLUTION 2.5ML BOTTLE. OD SCH (19:29)
--- NOTE | 2019-01-22 22:28 | PDOC ---
Exam Note: Adrián Note: Please also refer to the separate dictated note~for this date of service dictated separately.~Patient seen individually. Discussed the patient with Nursing staff reviewed the chart.~Reviewed interim history and current functioning. Reviewed vital signs,~Labs/ Radiology~and current medications noted below. Continue current treatment with the changes noted in the dictated addendum note Assessment: Vital Signs: Vital Signs Date Time Temp Pulse Resp B/P (MAP) Pulse Ox O2 Delivery O2 Flow Rate FiO2 01/22/19 16:39 98.0 63 18 91/58 (69) 98 01/21/19 15:38 Room Air I&O Intake and Output 01/22/19 07:00 Intake Total 960 ml Balance 960 ml Intake Oral 960 ml Labs: Laboratory Tests Test 01/22/19 07:30 White Blood Count 5.3 x10^3/uL (4.0-11.0) Red Blood Count 4.09 x10^6/uL (4.30-5.70) L Hemoglobin 11.8 g/dL (13.0-17.5) L Hematocrit 35.6 % (39.0-53.0) L Mean Corpuscular Volume 87 fL (79-100) Mean Corpuscular Hemoglobin 29 pg (25-35) Mean Corpuscular Hemoglobin Concent 33 g/dL (31-37) Red Cell Distribution Width 13.8 % (11.5-14.5) Platelet Count 203 x10^3/uL (140-400) Neutrophils (%) (Auto) 61 % (31-73) Lymphocytes (%) (Auto) 23 % (24-48) L Monocytes (%) (Auto) 13 % (0-9) H Eosinophils (%) (Auto) 2 % (0-3) Basophils (%) (Auto) 1 % (0-3) Neutrophils # (Auto) 3.3 x10^3uL (1.8-7.7) Lymphocytes # (Auto) 1.2 x10^3/uL (1.0-4.8) Monocytes # (Auto) 0.7 x10^3/uL (0.0-1.1) Eosinophils # (Auto) 0.1 x10^3/uL (0.0-0.7) Basophils # (Auto) 0.0 x10^3/uL (0.0-0.2) Sodium Level 145 mmol/L (136-145) Potassium Level 4.6 mmol/L (3.5-5.1) Chloride Level 107 mmol/L (98-107) Carbon Dioxide Level 32 mmol/L (21-32) Anion Gap 6 (6-14) Blood Urea Nitrogen 23 mg/dL (8-26) Creatinine 0.9 mg/dL (0.7-1.3) Estimated GFR (Cockcroft-Gault) 84.7 BUN/Creatinine Ratio 26 (6-20) H Glucose Level 77 mg/dL (70-99) Calcium Level 8.9 mg/dL (8.5-10.1) Total Bilirubin 0.4 mg/dL (0.2-1.0) Aspartate Amino Transferase (AST) 20 U/L (15-37) Alanine Aminotransferase (ALT) 15 U/L (16-63) L Alkaline Phosphatase 51 U/L (46-116) Total Protein 6.1 g/dL (6.4-8.2) L Albumin 2.9 g/dL (3.4-5.0) L Albumin/Globulin Ratio 0.9 (1.0-1.7) L Current Medications: Meds: Current Medications Acetaminophen (Tylenol) 650 mg PRN Q4HRS PRN PO FEVER; Start 01/08/19 at 21:30 ; Stop 01/09/19 at 21:29; Status Cancel Acetaminophen (Tylenol) 650 mg PRN Q6HRS PRN PO PAIN / TEMP; Start 01/09/19 at 00:30; Status Cancel Multi-Ingredient Ointment (Analgesic [place]) 1 she PRN QID PRN TP MUSCLE PAIN; Start 01/09/19 at 00:30 Al Hydroxide/Mg Hydroxide (Mylanta Plus Xs) 15 ml PRN AFTMEALHC PRN PO DYSPEPSIA; Start 01/09/19 at 00:30 Magnesium Hydroxide (Milk Of Magnesia) 2,400 mg PRN QHS PRN PO CONSTIPATION; Start 01/09/19 at 00:30 Divalproex Sodium (Depakote Sprinkles) 125 mg BID PO Last administered on at 07:52; Start 01/09/19 at 09:00; Stop 01/10/19 at 17:11; Status DC Estradiol (Estrace) 0.5 mg DAILY PO Last administered on 01/22/19 08:05; Start 01/09/19 at 09:00 Haloperidol Lactate (Haldol) 5 mg PRN DAILY PRN IM ANXIETY / AGITATION; Start 01/09/19 at 02:15; Stop 01/12/19 at 16:48; Status DC Lorazepam (Ativan) 0.5 mg PRN DAILY PRN PO ANXIETY; Start 01/09/19 at 02:15 Lorazepam (Ativan) 0.5 mg TID PO Last administered on 01/22/19 19:28; Start at 09:00 Risperidone (RisperDAL) 2 mg BID PO Last administered on 01/17/19 07:55; Start 01/09/19 at 09:00; Stop 01/17/19 at 16:41; Status DC Acetaminophen (Tylenol) 650 mg PRN Q6HRS PRN PO PAIN / TEMP; Start 01/09/19 at 02:15 Vitamin D (Vitamin D3) 50,000 unit WEEKLY PO Last administered on 01/16/19 07: 27; Start 01/09/19 at 09:00 Dextromethorphan/ Quinidine (Nuedexta 20-10 Mg Capsule) 1 cap BID PO Last administered on 01/22/19 19:28; Start 01/09/19 at 09:00 Senna/Docusate Sodium (Senna Plus) 1 tab HS PO Last administered on 01/22/19 19 :24; Start 01/09/19 at 21:00 Tamsulosin HCl (Flomax) 0.4 mg HS PO Last administered on 01/22/19 19:25; Start 01/09/19 at 21:00 Acetaminophen/ Codeine Phosphate (Tylenol #3) 1 tab PRN Q4HRS PRN PO PAIN; Start 01/09/19 at 02:15 Acetaminophen/ Codeine Phosphate (Tylenol #3) 2 tab PRN Q4HRS PRN PO PAIN; Start 01/09/19 at 02:15 Non-Formulary Medication (Amino Acids/ Protein Hydrolys (Pro-Stat Awc Liquid Packet)) 30 ml DAILY PO ; Start 01/09/19 at 09:00; Status UNV Non-Formulary Medication (Carboxymethylcellulos/ Glycerin (Refresh Optive Eye Drops)) 1 drop HS OD ; Start 01/09/19 at 21:00; Stop 01/09/19 at 21:00; Status DC Artificial Tears (Refresh Classic) 1 drop QID OU ; Start 01/09/19 at 09:00; Stop 01/09/19 at 09:00; Status DC Dorzolamide/ Timolol (Cosopt) 1 drop BID OD Last administered on 01/22/19 19:29 ; Start 01/09/19 at 09:00 Lactulose (Lactulose) 20 gm BID PO Last administered on 01/22/19 19:25; Start 01/09/19 at 09:00 Latanoprost (Xalatan) 1 drop QHS OD Last administered on 01/22/19 19:29; Start 01/09/19 at 21:00 Levothyroxine Sodium (Synthroid) 25 mcg DAILY06 PO Last administered on 05:23; Start 01/09/19 at 06:00 Multivitamins/ Calcium (Thera-M Plus) 1 tab DAILY PO Last administered on 08:03; Start 01/09/19 at 09:00 Polyethylene Glycol (miraLAX) 17 gm DAILY PO Last administered on 01/22/19 08: 02; Start 01/09/19 at 09:00 Famotidine (Pepcid) 20 mg BID PO Last administered on 01/22/19 19:24; Start at 09:00 Erythromycin (Romycin) 1 inch DAILY OS Last administered on 01/10/19 07:53; Start 01/09/19 at 09:00; Stop 01/10/19 at 10:32; Status DC Divalproex Sodium (Depakote Sprinkles) 250 mg BID PO Last administered on 07:41; Start 01/10/19 at 21:00; Stop 01/13/19 at 18:48; Status DC Trazodone HCl (Desyrel) 50 mg QHS PO Last administered on 01/22/19 19:28; Start 01/10/19 at 21:00 Trazodone HCl (Desyrel) 50 mg PRN QHS PRN PO INSOMNIA; Start 01/10/19 at 17:15 Divalproex Sodium (Depakote Sprinkles) 500 mg BID PO Last administered on 19:24; Start 01/13/19 at 21:00 Risperidone (RisperDAL) 1.5 mg DAILY PO Last administered on 01/19/19at 07:36; Start 01/18/19 at 09:00; Stop 01/20/19 at 08:59; Status DC Risperidone (RisperDAL) 2 mg QHS PO Last administered on 01/19/19at 21:14; Start 01/17/19 at 21:00; Stop 01/20/19 at 20:59; Status DC Risperidone (RisperDAL) 1.5 mg BID PO Last administered on 01/22/19 19:25; Start 01/20/19 at 09:00 Active Scripts Active Reported Ranitidine Hcl 150 Mg Tablet 150 Mg PO BID Tylenol (Acetaminophen) 325 Mg Tablet 650 Mg PO PRN Q6HRS Flomax (Tamsulosin Hcl) 0.4 Mg Cap.er.24h 0.4 Mg PO HS Senna Plus Tablet (Sennosides/Docusate Sodium) 1 Each Tablet 1 Each PO HS Risperidone 2 Mg Tablet 2 Mg PO BID Refresh Optive Eye Drops (Carboxymethylcellulos/Glycerin) 15 Ml Drops 1 Drop OU QID Refresh Optive Eye Drops (Carboxymethylcellulos/Glycerin) 15 Ml Drops 1 Drop OD HS Pro-Stat Awc Liquid Packet (Amino Acids/Protein Hydrolys) 30 Ml Liquid.pkt 30 Ml PO DAILY Miralax (Polyethylene Glycol 3350) 17 Gm Powd.pack 17 Gm PO DAILY Nuedexta 20-10 Mg Capsule (Dextromethorphan Hbr/Quinidine) 1 Each Capsule 1 Each PO BID Multivitamins (Multivitamin) 1 Each Tablet 1 Each PO DAILY Levothyroxine Sodium 25 Mcg Tablet 25 Mcg PO DAILYAC Latanoprost 2.5 Ml Drops 1 Drop OD QHS Lactulose 10 Gm/15 Ml Solution 20 Gm PO BID Haloperidol Lactate 5 Mg/1 Ml Vial 5 Mg IM PRN DAILY PRN Estradiol 0.5 Mg Tablet 0.5 Mg PO DAILY Erythromycin (Erythromycin Base) 1 Gm Oint...g. 1 She OS BID Dorzolamide-Timolol Eye Drops (Dorzolamide Hcl/Timolol Maleat) 10 Ml Drops 1 Drop OD BID Depakote (Divalproex Sodium) 500 Mg Tablet.dr 125 Mg PO BID D3-50 (Cholecalciferol (Vitamin D3)) 50,000 Unit Capsule 50,000 Unit PO WEEKLY SUNDAY Lorazepam 0.5 Mg Tablet 0.5 Mg PO PRN DAILY PRN Lorazepam 0.5 Mg Tablet 0.5 Mg PO TID Tylenol With Codeine #3 Tablet (Acetaminophen With Codeine) 1 Each Tablet 2 Each PO PRN Q4HRS PRN Tylenol With Codeine #3 Tablet (Acetaminophen With Codeine) 1 Each Tablet 1 Each PO PRN Q4HRS PRN I have reviewed the current psychotropics carefully including drug interactions. Risk benefit ratio favors no change other than as noted in my dictated progress note. Diagnosis: Problems: (1) Medical clearance for psychiatric admission (2) Anxiety disorder (3) Major depressive disorder, recurrent episode (4) Impulse control disorder (5) Schizoaffective disorder, chronic condition with acute exacerbation (6) Mild cognitive disorder LEENA CHINCHILLA MD Jan 22, 2019 22:28
--- NOTE | 2019-01-22 23:01 | PN ---
DATE: 01/21/2019 PSYCHIATRIC PROGRESS NOTE This late entry 01/21/2019 covers elements not covered in my initial note. SUBJECTIVE: I met with the patient in the evening. The patient slept 8 hours previous night. I met with him in his room. He had undressed himself. Previous night he was not aggressive, but during the day on 01/21/2019, somewhat intrusive in the day room, had to be escorted out, was moving slowly. He was rather abrasive to me as I met with him, paranoid. REVIEW OF SYSTEMS: No CV, , pulmonary, eye system symptoms on review. Gait unsteady. MENTAL STATUS EXAM: Oriented to himself and situation. Speech moderate latency. Abstraction fair, computation impaired, often responses monosyllabic. No active suicidal or homicidal ideation. Attention span is short. Language function intact. LABORATORY DATA: Reviewed. IMPRESSION: Unchanged from initial note. PLAN: No change from initial note. We have reduced the Risperdal given the cytochromes P450 studies, Depakote is therapeutic. We will adjust further as clinically indicated and considere Clozaril. MAN Bessy CHINCHILLA MD DR: MARY/gage JOB#: [id number] / [id number]
[2019-01-23] MEDS: LEVOTHYROXINE 25 MCG TABLET. PO SCH (05:07)
[2019-01-23 05:56] VITALS: BP 98/60
[2019-01-23] MEDS: LACTULOSE 20 GM/30 ML SOLUTION. PO SCH ×2 (08:19→21:00)
[2019-01-23] MEDS: DIVALPROEX 125 MG CAP.SPRINK PO SCH ×2 (08:19→21:00)
[2019-01-23] MEDS: risperiDONE 0.5 MG TABLET. PO SCH ×2 (08:19→21:00)
[2019-01-23] MEDS: POLYETHYLENE GLYCOL 3350 17 GM PACKET. PO SCH (08:19)
[2019-01-23] MEDS: FAMOTIDINE 20 MG TABLET PO SCH ×2 (08:20→20:59)
[2019-01-23] MEDS: LORazepam 0.5 MG TABLET PO SCH ×3 (08:20→21:02)
[2019-01-23] MEDS: ESTRADIOL 1 MG TABLET PO SCH (08:20)
[2019-01-23] MEDS: MULTIVITAMIN with MINERAL TABLET. PO SCH (08:20)
[2019-01-23] MEDS: DEXTROMETHORPHAN/QUINIDINE 20/10MG CAPSULE. PO SCH ×2 (08:20→20:58)
[2019-01-23] MEDS: DORZOLAMIDE/TIMOLOL 2%/0.5% OPHTH SOLUTION 10ML BOTTLE. OD SCH ×2 (08:21→21:00)
[2019-01-23] MEDS: CHOLECALCIFEROL (VITAMIN D3) 50,000 UNIT CAPSULE PO SCH (08:21)
[2019-01-23 16:08] VITALS: BP 95/67
[2019-01-23] MEDS: SENNOSIDES/DOCUSATE 8.6/50MG TABLET. PO SCH (20:59)
[2019-01-23] MEDS: traZODone 50 MG TABLET. PO SCH (20:59)
[2019-01-23] MEDS: TAMSULOSIN 0.4 MG CAP.ER.24H. PO SCH (21:00)
[2019-01-23] MEDS: LATANOPROST 0.005% OPHTH SOLUTION 2.5ML BOTTLE. OD SCH (21:02)
--- NOTE | 2019-01-23 22:36 | PDOC ---
Exam Note: Adrián Note: Please also refer to the separate dictated note~for this date of service dictated separately.~Patient seen individually. Discussed the patient with Nursing staff reviewed the chart.~Reviewed interim history and current functioning. Reviewed vital signs,~Labs/ Radiology~and current medications noted below. Continue current treatment with the changes noted in the dictated addendum note Assessment: Vital Signs: Vital Signs Date Time Temp Pulse Resp B/P (MAP) Pulse Ox O2 Delivery O2 Flow Rate FiO2 01/23/19 16:08 97.8 60 20 95/67 (76) 98 Room Air I&O Intake and Output 01/23/19 07:00 Intake Total 920 ml Balance 920 ml Intake Oral 920 ml Current Medications: Meds: Current Medications Acetaminophen (Tylenol) 650 mg PRN Q4HRS PRN PO FEVER; Start 01/08/19 at 21:30 ; Stop 01/09/19 at 21:29; Status Cancel Acetaminophen (Tylenol) 650 mg PRN Q6HRS PRN PO PAIN / TEMP; Start 01/09/19 at 00:30; Status Cancel Multi-Ingredient Ointment (Analgesic [place]) 1 she PRN QID PRN TP MUSCLE PAIN; Start 01/09/19 at 00:30 Al Hydroxide/Mg Hydroxide (Mylanta Plus Xs) 15 ml PRN AFTMEALHC PRN PO DYSPEPSIA; Start 01/09/19 at 00:30 Magnesium Hydroxide (Milk Of Magnesia) 2,400 mg PRN QHS PRN PO CONSTIPATION; Start 01/09/19 at 00:30 Divalproex Sodium (Depakote Sprinkles) 125 mg BID PO Last administered on at 07:52; Start 01/09/19 at 09:00; Stop 01/10/19 at 17:11; Status DC Estradiol (Estrace) 0.5 mg DAILY PO Last administered on 01/23/19at 08:20; Start 01/09/19 at 09:00; Stop 01/23/19 at 09:55; Status DC Haloperidol Lactate (Haldol) 5 mg PRN DAILY PRN IM ANXIETY / AGITATION; Start 01/09/19 at 02:15; Stop 01/12/19 at 16:48; Status DC Lorazepam (Ativan) 0.5 mg PRN DAILY PRN PO ANXIETY; Start 01/09/19 at 02:15 Lorazepam (Ativan) 0.5 mg TID PO Last administered on 01/23/19 21:02; Start at 09:00 Risperidone (RisperDAL) 2 mg BID PO Last administered on 01/17/19 07:55; Start 01/09/19 at 09:00; Stop 01/17/19 at 16:41; Status DC Acetaminophen (Tylenol) 650 mg PRN Q6HRS PRN PO PAIN / TEMP; Start 01/09/19 at 02:15 Vitamin D (Vitamin D3) 50,000 unit WEEKLY PO Last administered on 01/23/19 08: 21; Start 01/09/19 at 09:00 Dextromethorphan/ Quinidine (Nuedexta 20-10 Mg Capsule) 1 cap BID PO Last administered on 01/23/19 20:58; Start 01/09/19 at 09:00 Senna/Docusate Sodium (Senna Plus) 1 tab HS PO Last administered on 01/23/19 20 :59; Start 01/09/19 at 21:00 Tamsulosin HCl (Flomax) 0.4 mg HS PO Last administered on 01/23/19 21:00; Start 01/09/19 at 21:00 Acetaminophen/ Codeine Phosphate (Tylenol #3) 1 tab PRN Q4HRS PRN PO PAIN; Start 01/09/19 at 02:15 Acetaminophen/ Codeine Phosphate (Tylenol #3) 2 tab PRN Q4HRS PRN PO PAIN; Start 01/09/19 at 02:15 Non-Formulary Medication (Amino Acids/ Protein Hydrolys (Pro-Stat Awc Liquid Packet)) 30 ml DAILY PO ; Start 01/09/19 at 09:00; Status UNV Non-Formulary Medication (Carboxymethylcellulos/ Glycerin (Refresh Optive Eye Drops)) 1 drop HS OD ; Start 01/09/19 at 21:00; Stop 01/09/19 at 21:00; Status DC Artificial Tears (Refresh Classic) 1 drop QID OU ; Start 01/09/19 at 09:00; Stop 01/09/19 at 09:00; Status DC Dorzolamide/ Timolol (Cosopt) 1 drop BID OD Last administered on 01/23/19 21:00 ; Start 01/09/19 at 09:00 Lactulose (Lactulose) 20 gm BID PO Last administered on 01/23/19 21:00; Start 01/09/19 at 09:00 Latanoprost (Xalatan) 1 drop QHS OD Last administered on 01/23/19 21:02; Start 01/09/19 at 21:00 Levothyroxine Sodium (Synthroid) 25 mcg DAILY06 PO Last administered on 05:07; Start 01/09/19 at 06:00 Multivitamins/ Calcium (Thera-M Plus) 1 tab DAILY PO Last administered on 08:20; Start 01/09/19 at 09:00 Polyethylene Glycol (miraLAX) 17 gm DAILY PO Last administered on 01/23/19 08: 19; Start 01/09/19 at 09:00 Famotidine (Pepcid) 20 mg BID PO Last administered on 01/23/19 20:59; Start at 09:00 Erythromycin (Romycin) 1 inch DAILY OS Last administered on 01/10/19 07:53; Start 01/09/19 at 09:00; Stop 01/10/19 at 10:32; Status DC Divalproex Sodium (Depakote Sprinkles) 250 mg BID PO Last administered on 07:41; Start 01/10/19 at 21:00; Stop 01/13/19 at 18:48; Status DC Trazodone HCl (Desyrel) 50 mg QHS PO Last administered on 01/23/19 20:59; Start 01/10/19 at 21:00 Trazodone HCl (Desyrel) 50 mg PRN QHS PRN PO INSOMNIA; Start 01/10/19 at 17:15 Divalproex Sodium (Depakote Sprinkles) 500 mg BID PO Last administered on 21:00; Start 01/13/19 at 21:00 Risperidone (RisperDAL) 1.5 mg DAILY PO Last administered on 01/19/19 07:36; Start 01/18/19 at 09:00; Stop 01/20/19 at 08:59; Status DC Risperidone (RisperDAL) 2 mg QHS PO Last administered on 01/19/19at 21:14; Start 01/17/19 at 21:00; Stop 01/20/19 at 20:59; Status DC Risperidone (RisperDAL) 1.5 mg BID PO Last administered on 01/23/19at 21:00; Start 01/20/19 at 09:00 Medroxyprogesterone Acetate (Provera) 2.5 mg DAILY PO ; Start 01/24/19 at 09:00 Active Scripts Active Reported Ranitidine Hcl 150 Mg Tablet 150 Mg PO BID Tylenol (Acetaminophen) 325 Mg Tablet 650 Mg PO PRN Q6HRS Flomax (Tamsulosin Hcl) 0.4 Mg Cap.er.24h 0.4 Mg PO HS Senna Plus Tablet (Sennosides/Docusate Sodium) 1 Each Tablet 1 Each PO HS Risperidone 2 Mg Tablet 2 Mg PO BID Refresh Optive Eye Drops (Carboxymethylcellulos/Glycerin) 15 Ml Drops 1 Drop OU QID Refresh Optive Eye Drops (Carboxymethylcellulos/Glycerin) 15 Ml Drops 1 Drop OD HS Pro-Stat Awc Liquid Packet (Amino Acids/Protein Hydrolys) 30 Ml Liquid.pkt 30 Ml PO DAILY Miralax (Polyethylene Glycol 3350) 17 Gm Powd.pack 17 Gm PO DAILY Nuedexta 20-10 Mg Capsule (Dextromethorphan Hbr/Quinidine) 1 Each Capsule 1 Each PO BID Multivitamins (Multivitamin) 1 Each Tablet 1 Each PO DAILY Levothyroxine Sodium 25 Mcg Tablet 25 Mcg PO DAILYAC Latanoprost 2.5 Ml Drops 1 Drop OD QHS Lactulose 10 Gm/15 Ml Solution 20 Gm PO BID Haloperidol Lactate 5 Mg/1 Ml Vial 5 Mg IM PRN DAILY PRN Estradiol 0.5 Mg Tablet 0.5 Mg PO DAILY Erythromycin (Erythromycin Base) 1 Gm Oint...g. 1 She OS BID Dorzolamide-Timolol Eye Drops (Dorzolamide Hcl/Timolol Maleat) 10 Ml Drops 1 Drop OD BID Depakote (Divalproex Sodium) 500 Mg Tablet.dr 125 Mg PO BID D3-50 (Cholecalciferol (Vitamin D3)) 50,000 Unit Capsule 50,000 Unit PO WEEKLY SUNDAY Lorazepam 0.5 Mg Tablet 0.5 Mg PO PRN DAILY PRN Lorazepam 0.5 Mg Tablet 0.5 Mg PO TID Tylenol With Codeine #3 Tablet (Acetaminophen With Codeine) 1 Each Tablet 2 Each PO PRN Q4HRS PRN Tylenol With Codeine #3 Tablet (Acetaminophen With Codeine) 1 Each Tablet 1 Each PO PRN Q4HRS PRN I have reviewed the current psychotropics carefully including drug interactions. Risk benefit ratio favors no change other than as noted in my dictated progress note. Diagnosis: Problems: (1) Medical clearance for psychiatric admission (2) Anxiety disorder (3) Major depressive disorder, recurrent episode (4) Impulse control disorder (5) Schizoaffective disorder, chronic condition with acute exacerbation (6) Mild cognitive disorder LEENA CHINCHILLA MD Jan 23, 2019 22:36
[2019-01-24 05:29] VITALS: BP 99/62
[2019-01-24] MEDS: LEVOTHYROXINE 25 MCG TABLET. PO SCH (05:45)
[2019-01-24] MEDS: MULTIVITAMIN with MINERAL TABLET. PO SCH (08:06)
[2019-01-24] MEDS: LACTULOSE 20 GM/30 ML SOLUTION. PO SCH ×2 (08:06→20:04)
[2019-01-24] MEDS: DIVALPROEX 125 MG CAP.SPRINK PO SCH ×2 (08:06→20:04)
[2019-01-24] MEDS: POLYETHYLENE GLYCOL 3350 17 GM PACKET. PO SCH (08:06)
[2019-01-24] MEDS: risperiDONE 0.5 MG TABLET. PO SCH ×2 (08:06→20:04)
[2019-01-24] MEDS: DEXTROMETHORPHAN/QUINIDINE 20/10MG CAPSULE. PO SCH ×2 (08:06→20:03)
[2019-01-24] MEDS: FAMOTIDINE 20 MG TABLET PO SCH ×2 (08:06→20:03)
[2019-01-24] MEDS: DORZOLAMIDE/TIMOLOL 2%/0.5% OPHTH SOLUTION 10ML BOTTLE. OD SCH ×2 (08:06→20:03)
[2019-01-24] MEDS: LORazepam 0.5 MG TABLET PO SCH ×3 (08:08→20:03)
[2019-01-24 16:16] VITALS: BP 108/72
[2019-01-24] MEDS: LATANOPROST 0.005% OPHTH SOLUTION 2.5ML BOTTLE. OD SCH (20:03)
[2019-01-24] MEDS: TAMSULOSIN 0.4 MG CAP.ER.24H. PO SCH (20:03)
[2019-01-24] MEDS: SENNOSIDES/DOCUSATE 8.6/50MG TABLET. PO SCH (20:03)
[2019-01-24] MEDS: traZODone 50 MG TABLET. PO SCH (20:03)
--- NOTE | 2019-01-24 22:30 | PDOC ---
Exam Note: Adrián Note: Please also refer to the separate dictated note~for this date of service dictated separately.~Patient seen individually. Discussed the patient with Nursing staff reviewed the chart.~Reviewed interim history and current functioning. Reviewed vital signs,~Labs/ Radiology~and current medications noted below. Continue current treatment with the changes noted in the dictated addendum note Assessment: Vital Signs: Vital Signs Date Time Temp Pulse Resp B/P (MAP) Pulse Ox O2 Delivery O2 Flow Rate FiO2 01/24/19 16:16 97.6 68 18 108/72 (84) 94 01/24/19 05:29 Room Air I&O Intake and Output 01/24/19 07:00 Intake Total 840 ml Balance 840 ml Intake Oral 840 ml # Voids 1 Current Medications: Meds: Current Medications Acetaminophen (Tylenol) 650 mg PRN Q4HRS PRN PO FEVER; Start 01/08/19 at 21:30 ; Stop 01/09/19 at 21:29; Status Cancel Acetaminophen (Tylenol) 650 mg PRN Q6HRS PRN PO PAIN / TEMP; Start 01/09/19 at 00:30; Status Cancel Multi-Ingredient Ointment (Analgesic [place]) 1 she PRN QID PRN TP MUSCLE PAIN; Start 01/09/19 at 00:30 Al Hydroxide/Mg Hydroxide (Mylanta Plus Xs) 15 ml PRN AFTMEALHC PRN PO DYSPEPSIA; Start 01/09/19 at 00:30 Magnesium Hydroxide (Milk Of Magnesia) 2,400 mg PRN QHS PRN PO CONSTIPATION; Start 01/09/19 at 00:30 Divalproex Sodium (Depakote Sprinkles) 125 mg BID PO Last administered on at 07:52; Start 01/09/19 at 09:00; Stop 01/10/19 at 17:11; Status DC Estradiol (Estrace) 0.5 mg DAILY PO Last administered on 01/23/19at 08:20; Start 01/09/19 at 09:00; Stop 01/23/19 at 09:55; Status DC Haloperidol Lactate (Haldol) 5 mg PRN DAILY PRN IM ANXIETY / AGITATION; Start 01/09/19 at 02:15; Stop 01/12/19 at 16:48; Status DC Lorazepam (Ativan) 0.5 mg PRN DAILY PRN PO ANXIETY; Start 01/09/19 at 02:15 Lorazepam (Ativan) 0.5 mg TID PO Last administered on 01/24/19 20:03; Start at 09:00 Risperidone (RisperDAL) 2 mg BID PO Last administered on 01/17/19 07:55; Start 01/09/19 at 09:00; Stop 01/17/19 at 16:41; Status DC Acetaminophen (Tylenol) 650 mg PRN Q6HRS PRN PO PAIN / TEMP; Start 01/09/19 at 02:15 Vitamin D (Vitamin D3) 50,000 unit WEEKLY PO Last administered on 01/23/19 08: 21; Start 01/09/19 at 09:00 Dextromethorphan/ Quinidine (Nuedexta 20-10 Mg Capsule) 1 cap BID PO Last administered on 01/24/19 20:03; Start 01/09/19 at 09:00 Senna/Docusate Sodium (Senna Plus) 1 tab HS PO Last administered on 01/24/19 20 :03; Start 01/09/19 at 21:00 Tamsulosin HCl (Flomax) 0.4 mg HS PO Last administered on 01/24/19 20:03; Start 01/09/19 at 21:00 Acetaminophen/ Codeine Phosphate (Tylenol #3) 1 tab PRN Q4HRS PRN PO PAIN; Start 01/09/19 at 02:15 Acetaminophen/ Codeine Phosphate (Tylenol #3) 2 tab PRN Q4HRS PRN PO PAIN; Start 01/09/19 at 02:15 Non-Formulary Medication (Amino Acids/ Protein Hydrolys (Pro-Stat [facility] Liquid Packet)) 30 ml DAILY PO ; Start 01/09/19 at 09:00; Status UNV Non-Formulary Medication (Carboxymethylcellulos/ Glycerin (Refresh Optive Eye Drops)) 1 drop HS OD ; Start 01/09/19 at 21:00; Stop 01/09/19 at 21:00; Status DC Artificial Tears (Refresh Classic) 1 drop QID OU ; Start 01/09/19 at 09:00; Stop 01/09/19 at 09:00; Status DC Dorzolamide/ Timolol (Cosopt) 1 drop BID OD Last administered on 01/24/19 20:03 ; Start 01/09/19 at 09:00 Lactulose (Lactulose) 20 gm BID PO Last administered on 01/24/19 20:04; Start 01/09/19 at 09:00 Latanoprost (Xalatan) 1 drop QHS OD Last administered on 01/24/19 20:03; Start 01/09/19 at 21:00 Levothyroxine Sodium (Synthroid) 25 mcg DAILY06 PO Last administered on 05:45; Start 01/09/19 at 06:00 Multivitamins/ Calcium (Thera-M Plus) 1 tab DAILY PO Last administered on 08:06; Start 01/09/19 at 09:00 Polyethylene Glycol (miraLAX) 17 gm DAILY PO Last administered on 01/24/19 08: 06; Start 01/09/19 at 09:00 Famotidine (Pepcid) 20 mg BID PO Last administered on 01/24/19 20:03; Start at 09:00 Erythromycin (Romycin) 1 inch DAILY OS Last administered on 01/10/19 07:53; Start 01/09/19 at 09:00; Stop 01/10/19 at 10:32; Status DC Divalproex Sodium (Depakote Sprinkles) 250 mg BID PO Last administered on 07:41; Start 01/10/19 at 21:00; Stop 01/13/19 at 18:48; Status DC Trazodone HCl (Desyrel) 50 mg QHS PO Last administered on 01/24/19 20:03; Start 01/10/19 at 21:00 Trazodone HCl (Desyrel) 50 mg PRN QHS PRN PO INSOMNIA; Start 01/10/19 at 17:15 Divalproex Sodium (Depakote Sprinkles) 500 mg BID PO Last administered on 20:04; Start 01/13/19 at 21:00 Risperidone (RisperDAL) 1.5 mg DAILY PO Last administered on 01/19/19 07:36; Start 01/18/19 at 09:00; Stop 01/20/19 at 08:59; Status DC Risperidone (RisperDAL) 2 mg QHS PO Last administered on 01/19/19at 21:14; Start 01/17/19 at 21:00; Stop 01/20/19 at 20:59; Status DC Risperidone (RisperDAL) 1.5 mg BID PO Last administered on 01/24/19at 20:04; Start 01/20/19 at 09:00 Medroxyprogesterone Acetate (Provera) 2.5 mg DAILY PO Last administered on at 08:08; Start 01/24/19 at 09:00 Active Scripts Active Reported Ranitidine Hcl 150 Mg Tablet 150 Mg PO BID Tylenol (Acetaminophen) 325 Mg Tablet 650 Mg PO PRN Q6HRS Flomax (Tamsulosin Hcl) 0.4 Mg Cap.er.24h 0.4 Mg PO HS Senna Plus Tablet (Sennosides/Docusate Sodium) 1 Each Tablet 1 Each PO HS Risperidone 2 Mg Tablet 2 Mg PO BID Refresh Optive Eye Drops (Carboxymethylcellulos/Glycerin) 15 Ml Drops 1 Drop OU QID Refresh Optive Eye Drops (Carboxymethylcellulos/Glycerin) 15 Ml Drops 1 Drop OD HS Pro-Stat [facility] Liquid Packet (Amino Acids/Protein Hydrolys) 30 Ml Liquid.pkt 30 Ml PO DAILY Miralax (Polyethylene Glycol 3350) 17 Gm Powd.pack 17 Gm PO DAILY Nuedexta 20-10 Mg Capsule (Dextromethorphan Hbr/Quinidine) 1 Each Capsule 1 Each PO BID Multivitamins (Multivitamin) 1 Each Tablet 1 Each PO DAILY Levothyroxine Sodium 25 Mcg Tablet 25 Mcg PO DAILYAC Latanoprost 2.5 Ml Drops 1 Drop OD QHS Lactulose 10 Gm/15 Ml Solution 20 Gm PO BID Haloperidol Lactate 5 Mg/1 Ml Vial 5 Mg IM PRN DAILY PRN Estradiol 0.5 Mg Tablet 0.5 Mg PO DAILY Erythromycin (Erythromycin Base) 1 Gm Oint...g. 1 She OS BID Dorzolamide-Timolol Eye Drops (Dorzolamide Hcl/Timolol Maleat) 10 Ml Drops 1 Drop OD BID Depakote (Divalproex Sodium) 500 Mg Tablet.dr 125 Mg PO BID D3-50 (Cholecalciferol (Vitamin D3)) 50,000 Unit Capsule 50,000 Unit PO WEEKLY SUNDAY Lorazepam 0.5 Mg Tablet 0.5 Mg PO PRN DAILY PRN Lorazepam 0.5 Mg Tablet 0.5 Mg PO TID Tylenol With Codeine #3 Tablet (Acetaminophen With Codeine) 1 Each Tablet 2 Each PO PRN Q4HRS PRN Tylenol With Codeine #3 Tablet (Acetaminophen With Codeine) 1 Each Tablet 1 Each PO PRN Q4HRS PRN I have reviewed the current psychotropics carefully including drug interactions. Risk benefit ratio favors no change other than as noted in my dictated progress note. Diagnosis: Problems: (1) Medical clearance for psychiatric admission (2) Anxiety disorder (3) Major depressive disorder, recurrent episode (4) Impulse control disorder (5) Schizoaffective disorder, chronic condition with acute exacerbation (6) Mild cognitive disorder LEENA CHINCHILLA MD Jan 24, 2019 22:30
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
--- NOTE | 2019-01-25 00:29 | PN ---
DATE: PSYCHIATRIC PROGRESS NOTE This late entry 01/23/2019 covers elements not covered in my initial note. SUBJECTIVE: I met with the patient in the evening and staffed at a treatment team meeting with the entire team and the patient's sister, Dyana, attended the treatment team meeting. We had a lengthy discussion about the patient's diagnosis, his current medications including Depakote level is therapeutic and reduction of Risperdal given his cytochrome P450 studies and further plans if psychotic symptoms persist, and option of Clozaril. He was masturbating in the hallway at night, sent to his room, was exposing himself at night as well and then in the morning. Slept 7-1/2 hours, did well in groups per activity therapy report. REVIEW OF SYSTEMS: Ambulation somewhat impaired. No CV, , pulmonary, eye system symptoms on review. MENTAL STATUS EXAM: Reasonably oriented. Speech moderate latency, often responses monosyllabic. Abstraction fair, computation impaired, language function intact. Mood and affect withdrawn, appears intermittently psychotic. Has a smile about his face that is reflective of this, though he denies hallucinations. LABORATORY DATA: Reviewed. IMPRESSION: Schizoaffective disorder, bipolar type, mixed with psychotic features versus schizophrenia, chronic paranoid with acute exacerbation. Rest unchanged. PLAN: Continue current psychotropics. Change Estrace to Provera 2.5 mg a day. Appetite 80%, slept 7-1/2 hours. Rest will adjust depending on his progress. The Provera should help with sexual aggression better, but if the sexual aggression, inappropriate behaviors deemed secondary to psychosis, we may have to change Risperdal to Clozaril. MAN Bessy CHINCHILLA MD DR: MARY/gage JOB#: [id number] / [id number]
[2019-01-25] MEDS: LEVOTHYROXINE 25 MCG TABLET. PO SCH (05:52)
[2019-01-25 05:59] VITALS: BP 124/70
[2019-01-25] MEDS: DORZOLAMIDE/TIMOLOL 2%/0.5% OPHTH SOLUTION 10ML BOTTLE. OD SCH ×2 (08:21→19:46)
[2019-01-25] MEDS: POLYETHYLENE GLYCOL 3350 17 GM PACKET. PO SCH (08:22)
[2019-01-25] MEDS: FAMOTIDINE 20 MG TABLET PO SCH ×2 (08:22→19:41)
[2019-01-25] MEDS: DEXTROMETHORPHAN/QUINIDINE 20/10MG CAPSULE. PO SCH ×2 (08:22→19:45)
[2019-01-25] MEDS: LACTULOSE 20 GM/30 ML SOLUTION. PO SCH ×2 (08:22→19:40)
[2019-01-25] MEDS: DIVALPROEX 125 MG CAP.SPRINK PO SCH ×2 (08:22→19:40)
[2019-01-25] MEDS: LORazepam 0.5 MG TABLET PO SCH ×3 (08:22→19:45)
[2019-01-25] MEDS: MULTIVITAMIN with MINERAL TABLET. PO SCH (08:23)
[2019-01-25] MEDS: risperiDONE 0.5 MG TABLET. PO SCH (08:23)
[2019-01-25 16:43] VITALS: BP 108/70
[2019-01-25] MEDS: traZODone 50 MG TABLET. PO SCH (19:40)
[2019-01-25] MEDS: TAMSULOSIN 0.4 MG CAP.ER.24H. PO SCH (19:40)
[2019-01-25] MEDS: SENNOSIDES/DOCUSATE 8.6/50MG TABLET. PO SCH (19:41)
[2019-01-25] MEDS: risperiDONE 2 MG TABLET. PO SCH (19:44)
[2019-01-25] MEDS: LATANOPROST 0.005% OPHTH SOLUTION 2.5ML BOTTLE. OD SCH (19:46)
[2019-01-26 05:38] VITALS: BP 127/83
[2019-01-26] MEDS: LEVOTHYROXINE 25 MCG TABLET. PO SCH (05:50)
[2019-01-26] MEDS: LORazepam 0.5 MG TABLET PO SCH ×3 (08:14→21:00)
[2019-01-26] MEDS: POLYETHYLENE GLYCOL 3350 17 GM PACKET. PO SCH (08:14)
[2019-01-26] MEDS: DIVALPROEX 125 MG CAP.SPRINK PO SCH ×2 (08:14→19:42)
[2019-01-26] MEDS: DORZOLAMIDE/TIMOLOL 2%/0.5% OPHTH SOLUTION 10ML BOTTLE. OD SCH ×2 (08:14→19:41)
[2019-01-26] MEDS: LACTULOSE 20 GM/30 ML SOLUTION. PO SCH ×2 (08:14→19:43)
[2019-01-26] MEDS: FAMOTIDINE 20 MG TABLET PO SCH ×2 (08:15→19:43)
[2019-01-26] MEDS: risperiDONE 2 MG TABLET. PO SCH ×2 (08:15→19:43)
[2019-01-26] MEDS: DEXTROMETHORPHAN/QUINIDINE 20/10MG CAPSULE. PO SCH ×2 (08:15→19:43)
[2019-01-26] MEDS: MULTIVITAMIN with MINERAL TABLET. PO SCH (08:15)
--- NOTE | 2019-01-26 09:40 | PDOC ---
Exam Note: Adrián Note: Please also refer to the separate dictated note~for this date of service dictated separately.~Patient seen individually. Discussed the patient with Nursing staff reviewed the chart.~Reviewed interim history and current functioning. Reviewed vital signs,~Labs/ Radiology~and current medications noted below. Continue current treatment with the changes noted in the dictated addendum note Assessment: Vital Signs: Vital Signs Date Time Temp Pulse Resp B/P (MAP) Pulse Ox O2 Delivery O2 Flow Rate FiO2 01/26/19 05:38 97.9 66 20 127/83 (98) 96 01/25/19 16:43 Room Air I&O Intake and Output 01/26/19 06:59 Intake Total 1020 ml Balance 1020 ml Intake Oral 1020 ml # Voids 1 Current Medications: Meds: Current Medications Acetaminophen (Tylenol) 650 mg PRN Q4HRS PRN PO FEVER; Start 01/08/19 at 21:30 ; Stop 01/09/19 at 21:29; Status Cancel Acetaminophen (Tylenol) 650 mg PRN Q6HRS PRN PO PAIN / TEMP; Start 01/09/19 at 00:30; Status Cancel Multi-Ingredient Ointment (Analgesic [place]) 1 she PRN QID PRN TP MUSCLE PAIN; Start 01/09/19 at 00:30 Al Hydroxide/Mg Hydroxide (Mylanta Plus Xs) 15 ml PRN AFTMEALHC PRN PO DYSPEPSIA; Start 01/09/19 at 00:30 Magnesium Hydroxide (Milk Of Magnesia) 2,400 mg PRN QHS PRN PO CONSTIPATION; Start 01/09/19 at 00:30 Divalproex Sodium (Depakote Sprinkles) 125 mg BID PO Last administered on at 07:52; Start 01/09/19 at 09:00; Stop 01/10/19 at 17:11; Status DC Estradiol (Estrace) 0.5 mg DAILY PO Last administered on 01/23/19at 08:20; Start 01/09/19 at 09:00; Stop 01/23/19 at 09:55; Status DC Haloperidol Lactate (Haldol) 5 mg PRN DAILY PRN IM ANXIETY / AGITATION; Start 01/09/19 at 02:15; Stop 01/12/19 at 16:48; Status DC Lorazepam (Ativan) 0.5 mg PRN DAILY PRN PO ANXIETY; Start 01/09/19 at 02:15 Lorazepam (Ativan) 0.5 mg TID PO Last administered on 01/26/19 08:14; Start at 09:00 Risperidone (RisperDAL) 2 mg BID PO Last administered on 01/17/19 07:55; Start 01/09/19 at 09:00; Stop 01/17/19 at 16:41; Status DC Acetaminophen (Tylenol) 650 mg PRN Q6HRS PRN PO PAIN / TEMP; Start 01/09/19 at 02:15 Vitamin D (Vitamin D3) 50,000 unit WEEKLY PO Last administered on 01/23/19 08: 21; Start 01/09/19 at 09:00 Dextromethorphan/ Quinidine (Nuedexta 20-10 Mg Capsule) 1 cap BID PO Last administered on 01/26/19 08:15; Start 01/09/19 at 09:00 Senna/Docusate Sodium (Senna Plus) 1 tab HS PO Last administered on 01/25/19 19 :41; Start 01/09/19 at 21:00 Tamsulosin HCl (Flomax) 0.4 mg HS PO Last administered on 01/25/19 19:40; Start 01/09/19 at 21:00 Acetaminophen/ Codeine Phosphate (Tylenol #3) 1 tab PRN Q4HRS PRN PO PAIN; Start 01/09/19 at 02:15 Acetaminophen/ Codeine Phosphate (Tylenol #3) 2 tab PRN Q4HRS PRN PO PAIN; Start 01/09/19 at 02:15 Non-Formulary Medication (Amino Acids/ Protein Hydrolys (Pro-Stat [facility] Liquid Packet)) 30 ml DAILY PO ; Start 01/09/19 at 09:00; Status UNV Non-Formulary Medication (Carboxymethylcellulos/ Glycerin (Refresh Optive Eye Drops)) 1 drop HS OD ; Start 01/09/19 at 21:00; Stop 01/09/19 at 21:00; Status DC Artificial Tears (Refresh Classic) 1 drop QID OU ; Start 01/09/19 at 09:00; Stop 01/09/19 at 09:00; Status DC Dorzolamide/ Timolol (Cosopt) 1 drop BID OD Last administered on 01/26/19 08:14 ; Start 01/09/19 at 09:00 Lactulose (Lactulose) 20 gm BID PO Last administered on 01/26/19 08:14; Start 01/09/19 at 09:00 Latanoprost (Xalatan) 1 drop QHS OD Last administered on 01/24/19 20:03; Start 01/09/19 at 21:00; Stop 01/25/19 at 16:10; Status DC Levothyroxine Sodium (Synthroid) 25 mcg DAILY06 PO Last administered on 05:50; Start 01/09/19 at 06:00 Multivitamins/ Calcium (Thera-M Plus) 1 tab DAILY PO Last administered on 08:15; Start 01/09/19 at 09:00 Polyethylene Glycol (miraLAX) 17 gm DAILY PO Last administered on 01/26/19 08: 14; Start 01/09/19 at 09:00 Famotidine (Pepcid) 20 mg BID PO Last administered on 01/26/19 08:15; Start at 09:00 Erythromycin (Romycin) 1 inch DAILY OS Last administered on 01/10/19 07:53; Start 01/09/19 at 09:00; Stop 01/10/19 at 10:32; Status DC Divalproex Sodium (Depakote Sprinkles) 250 mg BID PO Last administered on 07:41; Start 01/10/19 at 21:00; Stop 01/13/19 at 18:48; Status DC Trazodone HCl (Desyrel) 50 mg QHS PO Last administered on 01/25/19 19:40; Start 01/10/19 at 21:00 Trazodone HCl (Desyrel) 50 mg PRN QHS PRN PO INSOMNIA; Start 01/10/19 at 17:15 Divalproex Sodium (Depakote Sprinkles) 500 mg BID PO Last administered on 08:14; Start 01/13/19 at 21:00 Risperidone (RisperDAL) 1.5 mg DAILY PO Last administered on 01/19/19 07:36; Start 01/18/19 at 09:00; Stop 01/20/19 at 08:59; Status DC Risperidone (RisperDAL) 2 mg QHS PO Last administered on 01/19/19at 21:14; Start 01/17/19 at 21:00; Stop 01/20/19 at 20:59; Status DC Risperidone (RisperDAL) 1.5 mg BID PO Last administered on 01/25/19 08:23; Start 01/20/19 at 09:00; Stop 01/25/19 at 12:04; Status DC Medroxyprogesterone Acetate (Provera) 2.5 mg DAILY PO Last administered on 08:15; Start 01/24/19 at 09:00 Risperidone (RisperDAL) 2 mg BID PO Last administered on 01/26/19 08:15; Start 01/25/19 at 21:00 Olanzapine (ZyPREXA ZYDIS) 5 mg PRN Q2HR PRN PO PSYCHOSIS Last administered on 01/25/19 12:31; Start 01/25/19 at 12:00 Latanoprost (Xalatan) 1 drop QHS OD Last administered on 01/25/19 19:46; Start 01/25/19 at 16:10 Active Scripts Active Reported Ranitidine Hcl 150 Mg Tablet 150 Mg PO BID Tylenol (Acetaminophen) 325 Mg Tablet 650 Mg PO PRN Q6HRS Flomax (Tamsulosin Hcl) 0.4 Mg Cap.er.24h 0.4 Mg PO HS Senna Plus Tablet (Sennosides/Docusate Sodium) 1 Each Tablet 1 Each PO HS Risperidone 2 Mg Tablet 2 Mg PO BID Refresh Optive Eye Drops (Carboxymethylcellulos/Glycerin) 15 Ml Drops 1 Drop OU QID Refresh Optive Eye Drops (Carboxymethylcellulos/Glycerin) 15 Ml Drops 1 Drop OD HS Pro-Stat [facility] Liquid Packet (Amino Acids/Protein Hydrolys) 30 Ml Liquid.pkt 30 Ml PO DAILY Miralax (Polyethylene Glycol 3350) 17 Gm Powd.pack 17 Gm PO DAILY Nuedexta 20-10 Mg Capsule (Dextromethorphan Hbr/Quinidine) 1 Each Capsule 1 Each PO BID Multivitamins (Multivitamin) 1 Each Tablet 1 Each PO DAILY Levothyroxine Sodium 25 Mcg Tablet 25 Mcg PO DAILYAC Latanoprost 2.5 Ml Drops 1 Drop OD QHS Lactulose 10 Gm/15 Ml Solution 20 Gm PO BID Haloperidol Lactate 5 Mg/1 Ml Vial 5 Mg IM PRN DAILY PRN Estradiol 0.5 Mg Tablet 0.5 Mg PO DAILY Erythromycin (Erythromycin Base) 1 Gm Oint...g. 1 She OS BID Dorzolamide-Timolol Eye Drops (Dorzolamide Hcl/Timolol Maleat) 10 Ml Drops 1 Drop OD BID Depakote (Divalproex Sodium) 500 Mg Tablet.dr 125 Mg PO BID D3-50 (Cholecalciferol (Vitamin D3)) 50,000 Unit Capsule 50,000 Unit PO WEEKLY SUNDAY Lorazepam 0.5 Mg Tablet 0.5 Mg PO PRN DAILY PRN Lorazepam 0.5 Mg Tablet 0.5 Mg PO TID Tylenol With Codeine #3 Tablet (Acetaminophen With Codeine) 1 Each Tablet 2 Each PO PRN Q4HRS PRN Tylenol With Codeine #3 Tablet (Acetaminophen With Codeine) 1 Each Tablet 1 Each PO PRN Q4HRS PRN I have reviewed the current psychotropics carefully including drug interactions. Risk benefit ratio favors no change other than as noted in my dictated progress note. Diagnosis: Problems: (1) Medical clearance for psychiatric admission (2) Anxiety disorder (3) Major depressive disorder, recurrent episode (4) Impulse control disorder (5) Schizoaffective disorder, chronic condition with acute exacerbation (6) Mild cognitive disorder LEENA CHINCHILLA MD Jan 26, 2019 09:40
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
[2019-01-26] MEDS: traZODone 50 MG TABLET. PO SCH (19:42)
[2019-01-26] MEDS: LATANOPROST 0.005% OPHTH SOLUTION 2.5ML BOTTLE. OD SCH (19:42)
[2019-01-26] MEDS: SENNOSIDES/DOCUSATE 8.6/50MG TABLET. PO SCH (19:43)
[2019-01-26] MEDS: TAMSULOSIN 0.4 MG CAP.ER.24H. PO SCH (19:43)
[2019-01-26 21:00] VITALS: BP 100/66
--- NOTE | 2019-01-26 22:48 | PDOC ---
Exam Note: Adrián Note: Please also refer to the separate dictated note~for this date of service dictated separately.~Patient seen individually. Discussed the patient with Nursing staff reviewed the chart.~Reviewed interim history and current functioning. Reviewed vital signs,~Labs/ Radiology~and current medications noted below. Continue current treatment with the changes noted in the dictated addendum note Assessment: Vital Signs: Vital Signs Date Time Temp Pulse Resp B/P (MAP) Pulse Ox O2 Delivery O2 Flow Rate FiO2 01/26/19 05:38 97.9 66 20 127/83 (98) 96 01/25/19 16:43 Room Air I&O Intake and Output 01/26/19 06:59 Intake Total 1020 ml Balance 1020 ml Intake Oral 1020 ml # Voids 1 Current Medications: Meds: Current Medications Acetaminophen (Tylenol) 650 mg PRN Q4HRS PRN PO FEVER; Start 01/08/19 at 21:30 ; Stop 01/09/19 at 21:29; Status Cancel Acetaminophen (Tylenol) 650 mg PRN Q6HRS PRN PO PAIN / TEMP; Start 01/09/19 at 00:30; Status Cancel Multi-Ingredient Ointment (Analgesic [place]) 1 she PRN QID PRN TP MUSCLE PAIN; Start 01/09/19 at 00:30 Al Hydroxide/Mg Hydroxide (Mylanta Plus Xs) 15 ml PRN AFTMEALHC PRN PO DYSPEPSIA; Start 01/09/19 at 00:30 Magnesium Hydroxide (Milk Of Magnesia) 2,400 mg PRN QHS PRN PO CONSTIPATION; Start 01/09/19 at 00:30 Divalproex Sodium (Depakote Sprinkles) 125 mg BID PO Last administered on at 07:52; Start 01/09/19 at 09:00; Stop 01/10/19 at 17:11; Status DC Estradiol (Estrace) 0.5 mg DAILY PO Last administered on 01/23/19at 08:20; Start 01/09/19 at 09:00; Stop 01/23/19 at 09:55; Status DC Haloperidol Lactate (Haldol) 5 mg PRN DAILY PRN IM ANXIETY / AGITATION; Start 01/09/19 at 02:15; Stop 01/12/19 at 16:48; Status DC Lorazepam (Ativan) 0.5 mg PRN DAILY PRN PO ANXIETY; Start 01/09/19 at 02:15 Lorazepam (Ativan) 0.5 mg TID PO Last administered on 01/26/19 21:00; Start at 09:00 Risperidone (RisperDAL) 2 mg BID PO Last administered on 01/17/19 07:55; Start 01/09/19 at 09:00; Stop 01/17/19 at 16:41; Status DC Acetaminophen (Tylenol) 650 mg PRN Q6HRS PRN PO PAIN / TEMP; Start 01/09/19 at 02:15 Vitamin D (Vitamin D3) 50,000 unit WEEKLY PO Last administered on 01/23/19 08: 21; Start 01/09/19 at 09:00 Dextromethorphan/ Quinidine (Nuedexta 20-10 Mg Capsule) 1 cap BID PO Last administered on 01/26/19 19:43; Start 01/09/19 at 09:00 Senna/Docusate Sodium (Senna Plus) 1 tab HS PO Last administered on 01/26/19 19 :43; Start 01/09/19 at 21:00 Tamsulosin HCl (Flomax) 0.4 mg HS PO Last administered on 01/26/19 19:43; Start 01/09/19 at 21:00 Acetaminophen/ Codeine Phosphate (Tylenol #3) 1 tab PRN Q4HRS PRN PO PAIN; Start 01/09/19 at 02:15 Acetaminophen/ Codeine Phosphate (Tylenol #3) 2 tab PRN Q4HRS PRN PO PAIN; Start 01/09/19 at 02:15 Non-Formulary Medication (Amino Acids/ Protein Hydrolys (Pro-Stat [facility] Liquid Packet)) 30 ml DAILY PO ; Start 01/09/19 at 09:00; Status UNV Non-Formulary Medication (Carboxymethylcellulos/ Glycerin (Refresh Optive Eye Drops)) 1 drop HS OD ; Start 01/09/19 at 21:00; Stop 01/09/19 at 21:00; Status DC Artificial Tears (Refresh Classic) 1 drop QID OU ; Start 01/09/19 at 09:00; Stop 01/09/19 at 09:00; Status DC Dorzolamide/ Timolol (Cosopt) 1 drop BID OD Last administered on 01/26/19 19:41 ; Start 01/09/19 at 09:00 Lactulose (Lactulose) 20 gm BID PO Last administered on 01/26/19 19:43; Start 01/09/19 at 09:00 Latanoprost (Xalatan) 1 drop QHS OD Last administered on 01/24/19 20:03; Start 01/09/19 at 21:00; Stop 01/25/19 at 16:10; Status DC Levothyroxine Sodium (Synthroid) 25 mcg DAILY06 PO Last administered on 05:50; Start 01/09/19 at 06:00 Multivitamins/ Calcium (Thera-M Plus) 1 tab DAILY PO Last administered on 08:15; Start 01/09/19 at 09:00 Polyethylene Glycol (miraLAX) 17 gm DAILY PO Last administered on 01/26/19 08: 14; Start 01/09/19 at 09:00 Famotidine (Pepcid) 20 mg BID PO Last administered on 01/26/19 19:43; Start at 09:00 Erythromycin (Romycin) 1 inch DAILY OS Last administered on 01/10/19 07:53; Start 01/09/19 at 09:00; Stop 01/10/19 at 10:32; Status DC Divalproex Sodium (Depakote Sprinkles) 250 mg BID PO Last administered on 07:41; Start 01/10/19 at 21:00; Stop 01/13/19 at 18:48; Status DC Trazodone HCl (Desyrel) 50 mg QHS PO Last administered on 01/26/19 19:42; Start 01/10/19 at 21:00 Trazodone HCl (Desyrel) 50 mg PRN QHS PRN PO INSOMNIA; Start 01/10/19 at 17:15 Divalproex Sodium (Depakote Sprinkles) 500 mg BID PO Last administered on 19:42; Start 01/13/19 at 21:00 Risperidone (RisperDAL) 1.5 mg DAILY PO Last administered on 01/19/19 07:36; Start 01/18/19 at 09:00; Stop 01/20/19 at 08:59; Status DC Risperidone (RisperDAL) 2 mg QHS PO Last administered on 01/19/19 21:14; Start 01/17/19 at 21:00; Stop 01/20/19 at 20:59; Status DC Risperidone (RisperDAL) 1.5 mg BID PO Last administered on 01/25/19 08:23; Start 01/20/19 at 09:00; Stop 01/25/19 at 12:04; Status DC Medroxyprogesterone Acetate (Provera) 2.5 mg DAILY PO Last administered on 08:15; Start 01/24/19 at 09:00 Risperidone (RisperDAL) 2 mg BID PO Last administered on 01/26/19 19:43; Start 01/25/19 at 21:00 Olanzapine (ZyPREXA ZYDIS) 5 mg PRN Q2HR PRN PO PSYCHOSIS Last administered on 01/25/19 12:31; Start 01/25/19 at 12:00 Latanoprost (Xalatan) 1 drop QHS OD Last administered on 01/26/19 19:42; Start 01/25/19 at 16:10 Active Scripts Active Reported Ranitidine Hcl 150 Mg Tablet 150 Mg PO BID Tylenol (Acetaminophen) 325 Mg Tablet 650 Mg PO PRN Q6HRS Flomax (Tamsulosin Hcl) 0.4 Mg Cap.er.24h 0.4 Mg PO HS Senna Plus Tablet (Sennosides/Docusate Sodium) 1 Each Tablet 1 Each PO HS Risperidone 2 Mg Tablet 2 Mg PO BID Refresh Optive Eye Drops (Carboxymethylcellulos/Glycerin) 15 Ml Drops 1 Drop OU QID Refresh Optive Eye Drops (Carboxymethylcellulos/Glycerin) 15 Ml Drops 1 Drop OD HS Pro-Stat [facility] Liquid Packet (Amino Acids/Protein Hydrolys) 30 Ml Liquid.pkt 30 Ml PO DAILY Miralax (Polyethylene Glycol 3350) 17 Gm Powd.pack 17 Gm PO DAILY Nuedexta 20-10 Mg Capsule (Dextromethorphan Hbr/Quinidine) 1 Each Capsule 1 Each PO BID Multivitamins (Multivitamin) 1 Each Tablet 1 Each PO DAILY Levothyroxine Sodium 25 Mcg Tablet 25 Mcg PO DAILYAC Latanoprost 2.5 Ml Drops 1 Drop OD QHS Lactulose 10 Gm/15 Ml Solution 20 Gm PO BID Haloperidol Lactate 5 Mg/1 Ml Vial 5 Mg IM PRN DAILY PRN Estradiol 0.5 Mg Tablet 0.5 Mg PO DAILY Erythromycin (Erythromycin Base) 1 Gm Oint...g. 1 She OS BID Dorzolamide-Timolol Eye Drops (Dorzolamide Hcl/Timolol Maleat) 10 Ml Drops 1 Drop OD BID Depakote (Divalproex Sodium) 500 Mg Tablet.dr 125 Mg PO BID D3-50 (Cholecalciferol (Vitamin D3)) 50,000 Unit Capsule 50,000 Unit PO WEEKLY SUNDAY Lorazepam 0.5 Mg Tablet 0.5 Mg PO PRN DAILY PRN Lorazepam 0.5 Mg Tablet 0.5 Mg PO TID Tylenol With Codeine #3 Tablet (Acetaminophen With Codeine) 1 Each Tablet 2 Each PO PRN Q4HRS PRN Tylenol With Codeine #3 Tablet (Acetaminophen With Codeine) 1 Each Tablet 1 Each PO PRN Q4HRS PRN I have reviewed the current psychotropics carefully including drug interactions. Risk benefit ratio favors no change other than as noted in my dictated progress note. Diagnosis: Problems: (1) Medical clearance for psychiatric admission (2) Anxiety disorder (3) Major depressive disorder, recurrent episode (4) Impulse control disorder (5) Schizoaffective disorder, chronic condition with acute exacerbation (6) Mild cognitive disorder LEENA CHINCHILLA MD Jan 26, 2019 22:48
[2019-01-27 05:31] VITALS: BP 112/72
[2019-01-27] MEDS: LEVOTHYROXINE 25 MCG TABLET. PO SCH (05:32)
[2019-01-27 08:18] LABS: BASO # 0.1 x10^3/uL (0.0-0.2); BASO % 1 % (0-3); EOS # 0.1 x10^3/uL (0.0-0.7); EOS % 3 % (0-3); HEMATOCRIT 35.5 % (39.0-53.0); LYMPH # 1.3 x10^3/uL (1.0-4.8); LYMPH % 23 % (24-48); MEAN CORPUSCULAR HEMOGLOBIN 29 pg (25-35); MEAN CORPUSCULAR HGB CONC 34 g/dL (31-37); MEAN CORPUSCULAR VOLUME 87 fL (79-100); MONO # 0.9 x10^3/uL (0.0-1.1); MONO % 16 % (0-9); NEUT # 3.3 x10^3uL (1.8-7.7); NEUT % 58 % (31-73); PLATELET COUNT 194 x10^3/uL (140-400); RED CELL DISTRIBUTION WIDTH 13.7 % (11.5-14.5); WHITE BLOOD COUNT 5.7 x10^3/uL (4.0-11.0)
[2019-01-27] MEDS: POLYETHYLENE GLYCOL 3350 17 GM PACKET. PO SCH (08:28)
[2019-01-27] MEDS: DEXTROMETHORPHAN/QUINIDINE 20/10MG CAPSULE. PO SCH ×2 (08:28→20:15)
[2019-01-27] MEDS: DORZOLAMIDE/TIMOLOL 2%/0.5% OPHTH SOLUTION 10ML BOTTLE. OD SCH ×2 (08:28→20:20)
[2019-01-27] MEDS: LACTULOSE 20 GM/30 ML SOLUTION. PO SCH ×2 (08:28→20:14)
[2019-01-27] MEDS: LORazepam 0.5 MG TABLET PO SCH ×3 (08:28→20:14)
[2019-01-27] MEDS: DIVALPROEX 125 MG CAP.SPRINK PO SCH ×2 (08:28→20:14)
[2019-01-27] MEDS: risperiDONE 2 MG TABLET. PO SCH ×2 (08:29→20:13)
[2019-01-27] MEDS: FAMOTIDINE 20 MG TABLET PO SCH ×2 (08:29→20:13)
[2019-01-27] MEDS: MULTIVITAMIN with MINERAL TABLET. PO SCH (08:29)
[2019-01-27 08:44] LABS: ALBUMIN 2.7 g/dL (3.4-5.0); ALBUMIN/GLOBULIN RATIO 0.8 (1.0-1.7); CALCIUM 8.8 mg/dL (8.5-10.1); POTASSIUM 4.5 mmol/L (3.5-5.1); TOTAL BILIRUBIN 0.4 mg/dL (0.2-1.0); TOTAL PROTEIN 5.9 g/dL (6.4-8.2)
[2019-01-27 16:10] VITALS: BP 97/62
[2019-01-27] MEDS: traZODone 50 MG TABLET. PO SCH (20:13)
[2019-01-27] MEDS: SENNOSIDES/DOCUSATE 8.6/50MG TABLET. PO SCH (20:13)
[2019-01-27] MEDS: TAMSULOSIN 0.4 MG CAP.ER.24H. PO SCH (20:13)
[2019-01-27] MEDS: cloZAPine 25 MG TABLET PO SCH (20:15)
[2019-01-27] MEDS: LATANOPROST 0.005% OPHTH SOLUTION 2.5ML BOTTLE. OD SCH (20:17)
--- NOTE | 2019-01-27 22:37 | PDOC ---
Exam Note: Adrián Note: Please also refer to the separate dictated note~for this date of service dictated separately.~Patient seen individually. Discussed the patient with Nursing staff reviewed the chart.~Reviewed interim history and current functioning. Reviewed vital signs,~Labs/ Radiology~and current medications noted below. Continue current treatment with the changes noted in the dictated addendum note Assessment: Vital Signs: Vital Signs Date Time Temp Pulse Resp B/P (MAP) Pulse Ox O2 Delivery O2 Flow Rate FiO2 01/27/19 16:10 98.0 63 18 97/62 (74) 97 01/26/19 21:00 Room Air I&O Intake and Output 01/27/19 06:59 Intake Total 1080 ml Balance 1080 ml Intake Oral 1080 ml # Voids 1 Labs: Laboratory Tests Test 01/27/19 07:12 White Blood Count 5.7 x10^3/uL (4.0-11.0) Red Blood Count 4.10 x10^6/uL (4.30-5.70) L Hemoglobin 12.0 g/dL (13.0-17.5) L Hematocrit 35.5 % (39.0-53.0) L Mean Corpuscular Volume 87 fL (79-100) Mean Corpuscular Hemoglobin 29 pg (25-35) Mean Corpuscular Hemoglobin Concent 34 g/dL (31-37) Red Cell Distribution Width 13.7 % (11.5-14.5) Platelet Count 194 x10^3/uL (140-400) Neutrophils (%) (Auto) 58 % (31-73) Lymphocytes (%) (Auto) 23 % (24-48) L Monocytes (%) (Auto) 16 % (0-9) H Eosinophils (%) (Auto) 3 % (0-3) Basophils (%) (Auto) 1 % (0-3) Neutrophils # (Auto) 3.3 x10^3uL (1.8-7.7) Lymphocytes # (Auto) 1.3 x10^3/uL (1.0-4.8) Monocytes # (Auto) 0.9 x10^3/uL (0.0-1.1) Eosinophils # (Auto) 0.1 x10^3/uL (0.0-0.7) Basophils # (Auto) 0.1 x10^3/uL (0.0-0.2) Sodium Level 145 mmol/L (136-145) Potassium Level 4.5 mmol/L (3.5-5.1) Chloride Level 108 mmol/L (98-107) H Carbon Dioxide Level 33 mmol/L (21-32) H Anion Gap 4 (6-14) L Blood Urea Nitrogen 23 mg/dL (8-26) Creatinine 1.0 mg/dL (0.7-1.3) Estimated GFR (Cockcroft-Gault) 75.0 BUN/Creatinine Ratio 23 (6-20) H Glucose Level 62 mg/dL (70-99) L Calcium Level 8.8 mg/dL (8.5-10.1) Total Bilirubin 0.4 mg/dL (0.2-1.0) Aspartate Amino Transferase (AST) 20 U/L (15-37) Alanine Aminotransferase (ALT) 18 U/L (16-63) Alkaline Phosphatase 51 U/L (46-116) Total Protein 5.9 g/dL (6.4-8.2) L Albumin 2.7 g/dL (3.4-5.0) L Albumin/Globulin Ratio 0.8 (1.0-1.7) L Current Medications: Meds: Current Medications Acetaminophen (Tylenol) 650 mg PRN Q4HRS PRN PO FEVER; Start 01/08/19 at 21:30 ; Stop 01/09/19 at 21:29; Status Cancel Acetaminophen (Tylenol) 650 mg PRN Q6HRS PRN PO PAIN / TEMP; Start 01/09/19 at 00:30; Status Cancel Multi-Ingredient Ointment (Analgesic [place]) 1 she PRN QID PRN TP MUSCLE PAIN; Start 01/09/19 at 00:30 Al Hydroxide/Mg Hydroxide (Mylanta Plus Xs) 15 ml PRN AFTMEALHC PRN PO DYSPEPSIA; Start 01/09/19 at 00:30 Magnesium Hydroxide (Milk Of Magnesia) 2,400 mg PRN QHS PRN PO CONSTIPATION; Start 01/09/19 at 00:30 Divalproex Sodium (Depakote Sprinkles) 125 mg BID PO Last administered on at 07:52; Start 01/09/19 at 09:00; Stop 01/10/19 at 17:11; Status DC Estradiol (Estrace) 0.5 mg DAILY PO Last administered on 01/23/19 08:20; Start 01/09/19 at 09:00; Stop 01/23/19 at 09:55; Status DC Haloperidol Lactate (Haldol) 5 mg PRN DAILY PRN IM ANXIETY / AGITATION; Start 01/09/19 at 02:15; Stop 01/12/19 at 16:48; Status DC Lorazepam (Ativan) 0.5 mg PRN DAILY PRN PO ANXIETY; Start 01/09/19 at 02:15 Lorazepam (Ativan) 0.5 mg TID PO Last administered on 01/27/19 20:14; Start at 09:00 Risperidone (RisperDAL) 2 mg BID PO Last administered on 01/17/19 07:55; Start 01/09/19 at 09:00; Stop 01/17/19 at 16:41; Status DC Acetaminophen (Tylenol) 650 mg PRN Q6HRS PRN PO PAIN / TEMP; Start 01/09/19 at 02:15 Vitamin D (Vitamin D3) 50,000 unit WEEKLY PO Last administered on 01/23/19 08: 21; Start 01/09/19 at 09:00 Dextromethorphan/ Quinidine (Nuedexta 20-10 Mg Capsule) 1 cap BID PO Last administered on 01/27/19 20:15; Start 01/09/19 at 09:00 Senna/Docusate Sodium (Senna Plus) 1 tab HS PO Last administered on 01/27/19 20 :13; Start 01/09/19 at 21:00 Tamsulosin HCl (Flomax) 0.4 mg HS PO Last administered on 01/27/19 20:13; Start 01/09/19 at 21:00 Acetaminophen/ Codeine Phosphate (Tylenol #3) 1 tab PRN Q4HRS PRN PO PAIN; Start 01/09/19 at 02:15 Acetaminophen/ Codeine Phosphate (Tylenol #3) 2 tab PRN Q4HRS PRN PO PAIN; Start 01/09/19 at 02:15 Non-Formulary Medication (Amino Acids/ Protein Hydrolys (Pro-Stat [facility] Liquid Packet)) 30 ml DAILY PO ; Start 01/09/19 at 09:00; Status UNV Non-Formulary Medication (Carboxymethylcellulos/ Glycerin (Refresh Optive Eye Drops)) 1 drop HS OD ; Start 01/09/19 at 21:00; Stop 01/09/19 at 21:00; Status DC Artificial Tears (Refresh Classic) 1 drop QID OU ; Start 01/09/19 at 09:00; Stop 01/09/19 at 09:00; Status DC Dorzolamide/ Timolol (Cosopt) 1 drop BID OD Last administered on 01/27/19 20:20 ; Start 01/09/19 at 09:00 Lactulose (Lactulose) 20 gm BID PO Last administered on 01/27/19 20:14; Start 01/09/19 at 09:00 Latanoprost (Xalatan) 1 drop QHS OD Last administered on 01/24/19 20:03; Start 01/09/19 at 21:00; Stop 01/25/19 at 16:10; Status DC Levothyroxine Sodium (Synthroid) 25 mcg DAILY06 PO Last administered on 05:32; Start 01/09/19 at 06:00 Multivitamins/ Calcium (Thera-M Plus) 1 tab DAILY PO Last administered on 08:29; Start 01/09/19 at 09:00 Polyethylene Glycol (miraLAX) 17 gm DAILY PO Last administered on 01/27/19 08: 28; Start 01/09/19 at 09:00 Famotidine (Pepcid) 20 mg BID PO Last administered on 01/27/19 20:13; Start at 09:00 Erythromycin (Romycin) 1 inch DAILY OS Last administered on 01/10/19 07:53; Start 01/09/19 at 09:00; Stop 01/10/19 at 10:32; Status DC Divalproex Sodium (Depakote Sprinkles) 250 mg BID PO Last administered on 07:41; Start 01/10/19 at 21:00; Stop 01/13/19 at 18:48; Status DC Trazodone HCl (Desyrel) 50 mg QHS PO Last administered on 01/27/19 20:13; Start 01/10/19 at 21:00 Trazodone HCl (Desyrel) 50 mg PRN QHS PRN PO INSOMNIA; Start 01/10/19 at 17:15 Divalproex Sodium (Depakote Sprinkles) 500 mg BID PO Last administered on 20:14; Start 01/13/19 at 21:00 Risperidone (RisperDAL) 1.5 mg DAILY PO Last administered on 01/19/19 07:36; Start 01/18/19 at 09:00; Stop 01/20/19 at 08:59; Status DC Risperidone (RisperDAL) 2 mg QHS PO Last administered on 01/19/19 21:14; Start 01/17/19 at 21:00; Stop 01/20/19 at 20:59; Status DC Risperidone (RisperDAL) 1.5 mg BID PO Last administered on 01/25/19 08:23; Start 01/20/19 at 09:00; Stop 01/25/19 at 12:04; Status DC Medroxyprogesterone Acetate (Provera) 2.5 mg DAILY PO Last administered on 08:29; Start 01/24/19 at 09:00 Risperidone (RisperDAL) 2 mg BID PO Last administered on 01/27/19 20:13; Start 01/25/19 at 21:00 Olanzapine (ZyPREXA ZYDIS) 5 mg PRN Q2HR PRN PO PSYCHOSIS Last administered on 01/27/19 11:31; Start 01/25/19 at 12:00 Latanoprost (Xalatan) 1 drop QHS OD Last administered on 01/27/19 20:17; Start 01/25/19 at 16:10 Clozapine (Clozaril) 25 mg HS PO Last administered on 01/27/19 20:15; Start 01/27/19 at 21:00 Active Scripts Active Reported Ranitidine Hcl 150 Mg Tablet 150 Mg PO BID Tylenol (Acetaminophen) 325 Mg Tablet 650 Mg PO PRN Q6HRS Flomax (Tamsulosin Hcl) 0.4 Mg Cap.er.24h 0.4 Mg PO HS Senna Plus Tablet (Sennosides/Docusate Sodium) 1 Each Tablet 1 Each PO HS Risperidone 2 Mg Tablet 2 Mg PO BID Refresh Optive Eye Drops (Carboxymethylcellulos/Glycerin) 15 Ml Drops 1 Drop OU QID Refresh Optive Eye Drops (Carboxymethylcellulos/Glycerin) 15 Ml Drops 1 Drop OD HS Pro-Stat [facility] Liquid Packet (Amino Acids/Protein Hydrolys) 30 Ml Liquid.pkt 30 Ml PO DAILY Miralax (Polyethylene Glycol 3350) 17 Gm Powd.pack 17 Gm PO DAILY Nuedexta 20-10 Mg Capsule (Dextromethorphan Hbr/Quinidine) 1 Each Capsule 1 Each PO BID Multivitamins (Multivitamin) 1 Each Tablet 1 Each PO DAILY Levothyroxine Sodium 25 Mcg Tablet 25 Mcg PO DAILYAC Latanoprost 2.5 Ml Drops 1 Drop OD QHS Lactulose 10 Gm/15 Ml Solution 20 Gm PO BID Haloperidol Lactate 5 Mg/1 Ml Vial 5 Mg IM PRN DAILY PRN Estradiol 0.5 Mg Tablet 0.5 Mg PO DAILY Erythromycin (Erythromycin Base) 1 Gm Oint...g. 1 She OS BID Dorzolamide-Timolol Eye Drops (Dorzolamide Hcl/Timolol Maleat) 10 Ml Drops 1 Drop OD BID Depakote (Divalproex Sodium) 500 Mg Tablet.dr 125 Mg PO BID D3-50 (Cholecalciferol (Vitamin D3)) 50,000 Unit Capsule 50,000 Unit PO WEEKLY SUNDAY Lorazepam 0.5 Mg Tablet 0.5 Mg PO PRN DAILY PRN Lorazepam 0.5 Mg Tablet 0.5 Mg PO TID Tylenol With Codeine #3 Tablet (Acetaminophen With Codeine) 1 Each Tablet 2 Each PO PRN Q4HRS PRN Tylenol With Codeine #3 Tablet (Acetaminophen With Codeine) 1 Each Tablet 1 Each PO PRN Q4HRS PRN I have reviewed the current psychotropics carefully including drug interactions. Risk benefit ratio favors no change other than as noted in my dictated progress note. Diagnosis: Problems: (1) Medical clearance for psychiatric admission (2) Anxiety disorder (3) Major depressive disorder, recurrent episode (4) Impulse control disorder (5) Schizoaffective disorder, chronic condition with acute exacerbation (6) Mild cognitive disorder LEENA CHINCHILLA MD Jan 27, 2019 22:37
--- NOTE | 2019-01-28 00:01 | PN ---
DATE: 01/26/2019 PSYCHIATRIC PROGRESS NOTE This late entry 01/26/2019 covers elements not covered in my initial note. SUBJECTIVE: I met with the patient in the evening. The patient slept 5-3/4 hours previous night. Overall, the patient remains somewhat withdrawn, still appears psychotic at times. We had reduced the Risperdal, but given his ongoing psychosis, despite adjustment of Depakote to a therapeutic level, we will go ahead and increase the Risperdal to 2 mg twice a day and keep open the option of Clozaril if this fails. REVIEW OF SYSTEMS: No CV, , pulmonary, eye system symptoms on review. MENTAL STATUS EXAM: Oriented to himself and situation. Speech moderate latency, often responses monosyllabic. Abstraction fair, computation impaired, language function intact, attention span short. Mood and affect somewhat withdrawn. LABORATORY DATA: Reviewed. IMPRESSION: Unchanged from initial note. PLAN: No change from initial note. LEENA CHINCHILLA MD DR: MARY/gage JOB#: [id number] / [id number]
--- NOTE | 2019-01-28 00:03 | PN ---
DATE: 01/25/2019 PSYCHIATRIC PROGRESS NOTE This late entry 01/25/2019 covers elements not covered in my initial note. SUBJECTIVE: I met with the patient in the evening. The patient remains somewhat withdrawn at times, at times inappropriate sexually, appears paranoid at other times, and yet other times he seems much better. REVIEW OF SYSTEMS: No CV, , pulmonary, eye system symptoms on review. MENTAL STATUS EXAM: Oriented to himself and situation. Speech moderate latency, often responses monosyllabic. Abstraction fair, computation impaired, language function intact, attention span short. Mood and affect somewhat withdrawn. LABORATORY DATA: Reviewed. IMPRESSION: Unchanged from initial note. PLAN: No change from initial note. MAN Bessy CHINCHILLA MD DR: MARY/gage JOB#: [id number] / [id number]
[2019-01-28 05:59] VITALS: BP 108/66
[2019-01-28] MEDS: LEVOTHYROXINE 25 MCG TABLET. PO SCH (06:10)
[2019-01-28] MEDS: DORZOLAMIDE/TIMOLOL 2%/0.5% OPHTH SOLUTION 10ML BOTTLE. OD SCH ×2 (08:18→21:41)
[2019-01-28] MEDS: DEXTROMETHORPHAN/QUINIDINE 20/10MG CAPSULE. PO SCH ×2 (08:18→21:40)
[2019-01-28] MEDS: LORazepam 0.5 MG TABLET PO SCH ×3 (08:18→21:41)
[2019-01-28] MEDS: LACTULOSE 20 GM/30 ML SOLUTION. PO SCH ×2 (08:18→21:11)
[2019-01-28] MEDS: POLYETHYLENE GLYCOL 3350 17 GM PACKET. PO SCH (08:18)
[2019-01-28] MEDS: DIVALPROEX 125 MG CAP.SPRINK PO SCH ×2 (08:18→21:10)
[2019-01-28] MEDS: FAMOTIDINE 20 MG TABLET PO SCH ×2 (08:19→21:11)
[2019-01-28] MEDS: risperiDONE 2 MG TABLET. PO SCH ×2 (08:20→21:10)
[2019-01-28] MEDS: MULTIVITAMIN with MINERAL TABLET. PO SCH (08:20)
[2019-01-28 16:08] VITALS: BP 100/66
[2019-01-28] MEDS: cloZAPine 25 MG TABLET PO SCH (21:10)
[2019-01-28] MEDS: TAMSULOSIN 0.4 MG CAP.ER.24H. PO SCH (21:10)
[2019-01-28] MEDS: SENNOSIDES/DOCUSATE 8.6/50MG TABLET. PO SCH (21:11)
[2019-01-28] MEDS: LATANOPROST 0.005% OPHTH SOLUTION 2.5ML BOTTLE. OD SCH (21:11)
[2019-01-28] MEDS: traZODone 50 MG TABLET. PO SCH (21:40)
--- NOTE | 2019-01-28 22:26 | PDOC ---
Exam Note: Adrián Note: Please also refer to the separate dictated note~for this date of service dictated separately.~Patient seen individually. Discussed the patient with Nursing staff reviewed the chart.~Reviewed interim history and current functioning. Reviewed vital signs,~Labs/ Radiology~and current medications noted below. Continue current treatment with the changes noted in the dictated addendum note Assessment: Vital Signs: Vital Signs Date Time Temp Pulse Resp B/P (MAP) Pulse Ox O2 Delivery O2 Flow Rate FiO2 01/28/19 16:08 97.9 76 22 100/66 (77) 97 01/26/19 21:00 Room Air I&O Intake and Output 01/28/19 06:59 Intake Total 840 ml Balance 840 ml Intake Oral 840 ml Current Medications: Meds: Current Medications Acetaminophen (Tylenol) 650 mg PRN Q4HRS PRN PO FEVER; Start 01/08/19 at 21:30 ; Stop 01/09/19 at 21:29; Status Cancel Acetaminophen (Tylenol) 650 mg PRN Q6HRS PRN PO PAIN / TEMP; Start 01/09/19 at 00:30; Status Cancel Multi-Ingredient Ointment (Analgesic [place]) 1 she PRN QID PRN TP MUSCLE PAIN; Start 01/09/19 at 00:30 Al Hydroxide/Mg Hydroxide (Mylanta Plus Xs) 15 ml PRN AFTMEALHC PRN PO DYSPEPSIA; Start 01/09/19 at 00:30 Magnesium Hydroxide (Milk Of Magnesia) 2,400 mg PRN QHS PRN PO CONSTIPATION; Start 01/09/19 at 00:30 Divalproex Sodium (Depakote Sprinkles) 125 mg BID PO Last administered on at 07:52; Start 01/09/19 at 09:00; Stop 01/10/19 at 17:11; Status DC Estradiol (Estrace) 0.5 mg DAILY PO Last administered on 01/23/19at 08:20; Start 01/09/19 at 09:00; Stop 01/23/19 at 09:55; Status DC Haloperidol Lactate (Haldol) 5 mg PRN DAILY PRN IM ANXIETY / AGITATION; Start 01/09/19 at 02:15; Stop 01/12/19 at 16:48; Status DC Lorazepam (Ativan) 0.5 mg PRN DAILY PRN PO ANXIETY; Start 01/09/19 at 02:15 Lorazepam (Ativan) 0.5 mg TID PO Last administered on 01/28/19 21:41; Start at 09:00 Risperidone (RisperDAL) 2 mg BID PO Last administered on 01/17/19at 07:55; Start 01/09/19 at 09:00; Stop 01/17/19 at 16:41; Status DC Acetaminophen (Tylenol) 650 mg PRN Q6HRS PRN PO PAIN / TEMP; Start 01/09/19 at 02:15 Vitamin D (Vitamin D3) 50,000 unit WEEKLY PO Last administered on 01/23/19 08: 21; Start 01/09/19 at 09:00 Dextromethorphan/ Quinidine (Nuedexta 20-10 Mg Capsule) 1 cap BID PO Last administered on 01/28/19 21:40; Start 01/09/19 at 09:00 Senna/Docusate Sodium (Senna Plus) 1 tab HS PO Last administered on 01/28/19 21 :11; Start 01/09/19 at 21:00 Tamsulosin HCl (Flomax) 0.4 mg HS PO Last administered on 01/28/19 21:10; Start 01/09/19 at 21:00 Acetaminophen/ Codeine Phosphate (Tylenol #3) 1 tab PRN Q4HRS PRN PO PAIN; Start 01/09/19 at 02:15 Acetaminophen/ Codeine Phosphate (Tylenol #3) 2 tab PRN Q4HRS PRN PO PAIN; Start 01/09/19 at 02:15 Non-Formulary Medication (Amino Acids/ Protein Hydrolys (Pro-Stat Awc Liquid Packet)) 30 ml DAILY PO ; Start 01/09/19 at 09:00; Status UNV Non-Formulary Medication (Carboxymethylcellulos/ Glycerin (Refresh Optive Eye Drops)) 1 drop HS OD ; Start 01/09/19 at 21:00; Stop 01/09/19 at 21:00; Status DC Artificial Tears (Refresh Classic) 1 drop QID OU ; Start 01/09/19 at 09:00; Stop 01/09/19 at 09:00; Status DC Dorzolamide/ Timolol (Cosopt) 1 drop BID OD Last administered on 01/28/19 21:41 ; Start 01/09/19 at 09:00 Lactulose (Lactulose) 20 gm BID PO Last administered on 01/28/19 21:11; Start 01/09/19 at 09:00 Latanoprost (Xalatan) 1 drop QHS OD Last administered on 01/24/19 20:03; Start 01/09/19 at 21:00; Stop 01/25/19 at 16:10; Status DC Levothyroxine Sodium (Synthroid) 25 mcg DAILY06 PO Last administered on 06:10; Start 01/09/19 at 06:00 Multivitamins/ Calcium (Thera-M Plus) 1 tab DAILY PO Last administered on 08:20; Start 01/09/19 at 09:00 Polyethylene Glycol (miraLAX) 17 gm DAILY PO Last administered on 01/28/19 08: 18; Start 01/09/19 at 09:00 Famotidine (Pepcid) 20 mg BID PO Last administered on 01/28/19 21:11; Start at 09:00 Erythromycin (Romycin) 1 inch DAILY OS Last administered on 01/10/19 07:53; Start 01/09/19 at 09:00; Stop 01/10/19 at 10:32; Status DC Divalproex Sodium (Depakote Sprinkles) 250 mg BID PO Last administered on 07:41; Start 01/10/19 at 21:00; Stop 01/13/19 at 18:48; Status DC Trazodone HCl (Desyrel) 50 mg QHS PO Last administered on 01/28/19 21:40; Start 01/10/19 at 21:00 Trazodone HCl (Desyrel) 50 mg PRN QHS PRN PO INSOMNIA; Start 01/10/19 at 17:15 Divalproex Sodium (Depakote Sprinkles) 500 mg BID PO Last administered on 21:10; Start 01/13/19 at 21:00 Risperidone (RisperDAL) 1.5 mg DAILY PO Last administered on 01/19/19 07:36; Start 01/18/19 at 09:00; Stop 01/20/19 at 08:59; Status DC Risperidone (RisperDAL) 2 mg QHS PO Last administered on 01/19/19at 21:14; Start 01/17/19 at 21:00; Stop 01/20/19 at 20:59; Status DC Risperidone (RisperDAL) 1.5 mg BID PO Last administered on 01/25/19 08:23; Start 01/20/19 at 09:00; Stop 01/25/19 at 12:04; Status DC Medroxyprogesterone Acetate (Provera) 2.5 mg DAILY PO Last administered on 08:19; Start 01/24/19 at 09:00 Risperidone (RisperDAL) 2 mg BID PO Last administered on 01/28/19 21:10; Start 01/25/19 at 21:00 Olanzapine (ZyPREXA ZYDIS) 5 mg PRN Q2HR PRN PO PSYCHOSIS Last administered on 01/27/19 11:31; Start 01/25/19 at 12:00 Latanoprost (Xalatan) 1 drop QHS OD Last administered on 01/28/19 21:11; Start 01/25/19 at 16:10 Clozapine (Clozaril) 25 mg HS PO Last administered on 01/28/19 21:10; Start 01/27/19 at 21:00 Active Scripts Active Reported Ranitidine Hcl 150 Mg Tablet 150 Mg PO BID Tylenol (Acetaminophen) 325 Mg Tablet 650 Mg PO PRN Q6HRS Flomax (Tamsulosin Hcl) 0.4 Mg Cap.er.24h 0.4 Mg PO HS Senna Plus Tablet (Sennosides/Docusate Sodium) 1 Each Tablet 1 Each PO HS Risperidone 2 Mg Tablet 2 Mg PO BID Refresh Optive Eye Drops (Carboxymethylcellulos/Glycerin) 15 Ml Drops 1 Drop OU QID Refresh Optive Eye Drops (Carboxymethylcellulos/Glycerin) 15 Ml Drops 1 Drop OD HS Pro-Stat Awc Liquid Packet (Amino Acids/Protein Hydrolys) 30 Ml Liquid.pkt 30 Ml PO DAILY Miralax (Polyethylene Glycol 3350) 17 Gm Powd.pack 17 Gm PO DAILY Nuedexta 20-10 Mg Capsule (Dextromethorphan Hbr/Quinidine) 1 Each Capsule 1 Each PO BID Multivitamins (Multivitamin) 1 Each Tablet 1 Each PO DAILY Levothyroxine Sodium 25 Mcg Tablet 25 Mcg PO DAILYAC Latanoprost 2.5 Ml Drops 1 Drop OD QHS Lactulose 10 Gm/15 Ml Solution 20 Gm PO BID Haloperidol Lactate 5 Mg/1 Ml Vial 5 Mg IM PRN DAILY PRN Estradiol 0.5 Mg Tablet 0.5 Mg PO DAILY Erythromycin (Erythromycin Base) 1 Gm Oint...g. 1 She OS BID Dorzolamide-Timolol Eye Drops (Dorzolamide Hcl/Timolol Maleat) 10 Ml Drops 1 Drop OD BID Depakote (Divalproex Sodium) 500 Mg Tablet.dr 125 Mg PO BID D3-50 (Cholecalciferol (Vitamin D3)) 50,000 Unit Capsule 50,000 Unit PO WEEKLY SUNDAY Lorazepam 0.5 Mg Tablet 0.5 Mg PO PRN DAILY PRN Lorazepam 0.5 Mg Tablet 0.5 Mg PO TID Tylenol With Codeine #3 Tablet (Acetaminophen With Codeine) 1 Each Tablet 2 Each PO PRN Q4HRS PRN Tylenol With Codeine #3 Tablet (Acetaminophen With Codeine) 1 Each Tablet 1 Each PO PRN Q4HRS PRN I have reviewed the current psychotropics carefully including drug interactions. Risk benefit ratio favors no change other than as noted in my dictated progress note. Diagnosis: Problems: (1) Medical clearance for psychiatric admission (2) Anxiety disorder (3) Major depressive disorder, recurrent episode (4) Impulse control disorder (5) Schizoaffective disorder, chronic condition with acute exacerbation (6) Mild cognitive disorder LEENA CHINCHILLA MD Jan 28, 2019 22:26
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
[2019-01-29 05:48] VITALS: BP 125/86
[2019-01-29] MEDS: LEVOTHYROXINE 25 MCG TABLET. PO SCH (06:29)
[2019-01-29] MEDS: POLYETHYLENE GLYCOL 3350 17 GM PACKET. PO SCH (08:20)
[2019-01-29] MEDS: FAMOTIDINE 20 MG TABLET PO SCH ×2 (08:21→19:39)
[2019-01-29] MEDS: DIVALPROEX 125 MG CAP.SPRINK PO SCH ×2 (08:21→19:38)
[2019-01-29] MEDS: MULTIVITAMIN with MINERAL TABLET. PO SCH (08:21)
[2019-01-29] MEDS: risperiDONE 2 MG TABLET. PO SCH ×2 (08:21→19:39)
[2019-01-29] MEDS: LACTULOSE 20 GM/30 ML SOLUTION. PO SCH ×2 (08:22→19:39)
[2019-01-29] MEDS: DORZOLAMIDE/TIMOLOL 2%/0.5% OPHTH SOLUTION 10ML BOTTLE. OD SCH ×2 (08:22→19:40)
[2019-01-29] MEDS: DEXTROMETHORPHAN/QUINIDINE 20/10MG CAPSULE. PO SCH ×2 (08:26→19:40)
[2019-01-29] MEDS: LORazepam 0.5 MG TABLET PO SCH ×3 (08:26→19:38)
[2019-01-29 16:31] VITALS: BP 100/69
[2019-01-29] MEDS: cloZAPine 25 MG TABLET PO SCH (19:38)
[2019-01-29] MEDS: traZODone 50 MG TABLET. PO SCH (19:38)
[2019-01-29] MEDS: TAMSULOSIN 0.4 MG CAP.ER.24H. PO SCH (19:39)
[2019-01-29] MEDS: SENNOSIDES/DOCUSATE 8.6/50MG TABLET. PO SCH (19:39)
[2019-01-29] MEDS: LATANOPROST 0.005% OPHTH SOLUTION 2.5ML BOTTLE. OD SCH (19:40)
--- NOTE | 2019-01-29 22:31 | PDOC ---
Exam Note: Adrián Note: Please also refer to the separate dictated note~for this date of service dictated separately.~Patient seen individually. Discussed the patient with Nursing staff reviewed the chart.~Reviewed interim history and current functioning. Reviewed vital signs,~Labs/ Radiology~and current medications noted below. Continue current treatment with the changes noted in the dictated addendum note Assessment: Vital Signs: Vital Signs Date Time Temp Pulse Resp B/P (MAP) Pulse Ox O2 Delivery O2 Flow Rate FiO2 01/29/19 16:31 97.6 89 18 100/69 (79) 96 01/26/19 21:00 Room Air I&O Intake and Output 01/29/19 07:00 Intake Total 960 ml Balance 960 ml Intake Oral 960 ml Current Medications: Meds: Current Medications Acetaminophen (Tylenol) 650 mg PRN Q4HRS PRN PO FEVER; Start 01/08/19 at 21:30 ; Stop 01/09/19 at 21:29; Status Cancel Acetaminophen (Tylenol) 650 mg PRN Q6HRS PRN PO PAIN / TEMP; Start 01/09/19 at 00:30; Status Cancel Multi-Ingredient Ointment (Analgesic [place]) 1 she PRN QID PRN TP MUSCLE PAIN; Start 01/09/19 at 00:30 Al Hydroxide/Mg Hydroxide (Mylanta Plus Xs) 15 ml PRN AFTMEALHC PRN PO DYSPEPSIA; Start 01/09/19 at 00:30 Magnesium Hydroxide (Milk Of Magnesia) 2,400 mg PRN QHS PRN PO CONSTIPATION; Start 01/09/19 at 00:30 Divalproex Sodium (Depakote Sprinkles) 125 mg BID PO Last administered on at 07:52; Start 01/09/19 at 09:00; Stop 01/10/19 at 17:11; Status DC Estradiol (Estrace) 0.5 mg DAILY PO Last administered on 01/23/19at 08:20; Start 01/09/19 at 09:00; Stop 01/23/19 at 09:55; Status DC Haloperidol Lactate (Haldol) 5 mg PRN DAILY PRN IM ANXIETY / AGITATION; Start 01/09/19 at 02:15; Stop 01/12/19 at 16:48; Status DC Lorazepam (Ativan) 0.5 mg PRN DAILY PRN PO ANXIETY; Start 01/09/19 at 02:15 Lorazepam (Ativan) 0.5 mg TID PO Last administered on 01/29/19 19:38; Start at 09:00 Risperidone (RisperDAL) 2 mg BID PO Last administered on 01/17/19 07:55; Start 01/09/19 at 09:00; Stop 01/17/19 at 16:41; Status DC Acetaminophen (Tylenol) 650 mg PRN Q6HRS PRN PO PAIN / TEMP; Start 01/09/19 at 02:15 Vitamin D (Vitamin D3) 50,000 unit WEEKLY PO Last administered on 01/23/19 08: 21; Start 01/09/19 at 09:00 Dextromethorphan/ Quinidine (Nuedexta 20-10 Mg Capsule) 1 cap BID PO Last administered on 01/29/19 19:40; Start 01/09/19 at 09:00 Senna/Docusate Sodium (Senna Plus) 1 tab HS PO Last administered on 01/29/19 19:39; Start 01/09/19 at 21:00 Tamsulosin HCl (Flomax) 0.4 mg HS PO Last administered on 01/29/19 19:39; Start 01/09/19 at 21:00 Acetaminophen/ Codeine Phosphate (Tylenol #3) 1 tab PRN Q4HRS PRN PO PAIN; Start 01/09/19 at 02:15 Acetaminophen/ Codeine Phosphate (Tylenol #3) 2 tab PRN Q4HRS PRN PO PAIN; Start 01/09/19 at 02:15 Non-Formulary Medication (Amino Acids/ Protein Hydrolys (Pro-Stat Awc Liquid Packet)) 30 ml DAILY PO ; Start 01/09/19 at 09:00; Status UNV Non-Formulary Medication (Carboxymethylcellulos/ Glycerin (Refresh Optive Eye Drops)) 1 drop HS OD ; Start 01/09/19 at 21:00; Stop 01/09/19 at 21:00; Status DC Artificial Tears (Refresh Classic) 1 drop QID OU ; Start 01/09/19 at 09:00; Stop 01/09/19 at 09:00; Status DC Dorzolamide/ Timolol (Cosopt) 1 drop BID OD Last administered on 01/29/19 19: 40; Start 01/09/19 at 09:00 Lactulose (Lactulose) 20 gm BID PO Last administered on 01/29/19 19:39; Start 01/09/19 at 09:00 Latanoprost (Xalatan) 1 drop QHS OD Last administered on 01/24/19 20:03; Start 01/09/19 at 21:00; Stop 01/25/19 at 16:10; Status DC Levothyroxine Sodium (Synthroid) 25 mcg DAILY06 PO Last administered on 06:29; Start 01/09/19 at 06:00 Multivitamins/ Calcium (Thera-M Plus) 1 tab DAILY PO Last administered on 08:21; Start 01/09/19 at 09:00 Polyethylene Glycol (miraLAX) 17 gm DAILY PO Last administered on 01/29/19 08: 20; Start 01/09/19 at 09:00 Famotidine (Pepcid) 20 mg BID PO Last administered on 01/29/19 19:39; Start at 09:00 Erythromycin (Romycin) 1 inch DAILY OS Last administered on 01/10/19 07:53; Start 01/09/19 at 09:00; Stop 01/10/19 at 10:32; Status DC Divalproex Sodium (Depakote Sprinkles) 250 mg BID PO Last administered on 07:41; Start 01/10/19 at 21:00; Stop 01/13/19 at 18:48; Status DC Trazodone HCl (Desyrel) 50 mg QHS PO Last administered on 01/29/19 19:38; Start 01/10/19 at 21:00 Trazodone HCl (Desyrel) 50 mg PRN QHS PRN PO INSOMNIA; Start 01/10/19 at 17:15 Divalproex Sodium (Depakote Sprinkles) 500 mg BID PO Last administered on 19:38; Start 01/13/19 at 21:00 Risperidone (RisperDAL) 1.5 mg DAILY PO Last administered on 01/19/19 07:36; Start 01/18/19 at 09:00; Stop 01/20/19 at 08:59; Status DC Risperidone (RisperDAL) 2 mg QHS PO Last administered on 01/19/19at 21:14; Start 01/17/19 at 21:00; Stop 01/20/19 at 20:59; Status DC Risperidone (RisperDAL) 1.5 mg BID PO Last administered on 01/25/19 08:23; Start 01/20/19 at 09:00; Stop 01/25/19 at 12:04; Status DC Medroxyprogesterone Acetate (Provera) 2.5 mg DAILY PO Last administered on 01/29 08:21; Start 01/24/19 at 09:00 Risperidone (RisperDAL) 2 mg BID PO Last administered on 01/29/19 19:39; Start 01/25/19 at 21:00 Olanzapine (ZyPREXA ZYDIS) 5 mg PRN Q2HR PRN PO PSYCHOSIS Last administered on 01/27/19 11:31; Start 01/25/19 at 12:00 Latanoprost (Xalatan) 1 drop QHS OD Last administered on 01/29/19 19:40; Start 01/25/19 at 16:10 Clozapine (Clozaril) 25 mg HS PO Last administered on 01/29/19 19:38; Start at 21:00 Active Scripts Active Reported Ranitidine Hcl 150 Mg Tablet 150 Mg PO BID Tylenol (Acetaminophen) 325 Mg Tablet 650 Mg PO PRN Q6HRS Flomax (Tamsulosin Hcl) 0.4 Mg Cap.er.24h 0.4 Mg PO HS Senna Plus Tablet (Sennosides/Docusate Sodium) 1 Each Tablet 1 Each PO HS Risperidone 2 Mg Tablet 2 Mg PO BID Refresh Optive Eye Drops (Carboxymethylcellulos/Glycerin) 15 Ml Drops 1 Drop OU QID Refresh Optive Eye Drops (Carboxymethylcellulos/Glycerin) 15 Ml Drops 1 Drop OD HS Pro-Stat Awc Liquid Packet (Amino Acids/Protein Hydrolys) 30 Ml Liquid.pkt 30 Ml PO DAILY Miralax (Polyethylene Glycol 3350) 17 Gm Powd.pack 17 Gm PO DAILY Nuedexta 20-10 Mg Capsule (Dextromethorphan Hbr/Quinidine) 1 Each Capsule 1 Each PO BID Multivitamins (Multivitamin) 1 Each Tablet 1 Each PO DAILY Levothyroxine Sodium 25 Mcg Tablet 25 Mcg PO DAILYAC Latanoprost 2.5 Ml Drops 1 Drop OD QHS Lactulose 10 Gm/15 Ml Solution 20 Gm PO BID Haloperidol Lactate 5 Mg/1 Ml Vial 5 Mg IM PRN DAILY PRN Estradiol 0.5 Mg Tablet 0.5 Mg PO DAILY Erythromycin (Erythromycin Base) 1 Gm Oint...g. 1 She OS BID Dorzolamide-Timolol Eye Drops (Dorzolamide Hcl/Timolol Maleat) 10 Ml Drops 1 Drop OD BID Depakote (Divalproex Sodium) 500 Mg Tablet.dr 125 Mg PO BID D3-50 (Cholecalciferol (Vitamin D3)) 50,000 Unit Capsule 50,000 Unit PO WEEKLY SUNDAY Lorazepam 0.5 Mg Tablet 0.5 Mg PO PRN DAILY PRN Lorazepam 0.5 Mg Tablet 0.5 Mg PO TID Tylenol With Codeine #3 Tablet (Acetaminophen With Codeine) 1 Each Tablet 2 Each PO PRN Q4HRS PRN Tylenol With Codeine #3 Tablet (Acetaminophen With Codeine) 1 Each Tablet 1 Each PO PRN Q4HRS PRN I have reviewed the current psychotropics carefully including drug interactions. Risk benefit ratio favors no change other than as noted in my dictated progress note. Diagnosis: Problems: (1) Medical clearance for psychiatric admission (2) Anxiety disorder (3) Major depressive disorder, recurrent episode (4) Impulse control disorder (5) Schizoaffective disorder, chronic condition with acute exacerbation (6) Mild cognitive disorder LEENA CHINCHILLA MD Jan 29, 2019 22:31
--- NOTE | 2019-01-30 00:26 | PN ---
DATE: 01/28/2019 This late entry for 01/28/2019 covers elements not covered in my initial note. SUBJECTIVE: I met with the patient in the evening. The patient slept 6-1/2 hours previous night, remains intermittently psychotic, smiling inappropriately, responding to internal stimuli as I met with him in the evening. REVIEW OF SYSTEMS: He is slow in his ambulation, walked somewhat bent forward less so than before. No CV, , pulmonary, eye system symptoms on review. MENTAL STATUS EXAM: He is oriented to himself and situation. Speech has moderate latency, often responses monosyllabic. Abstraction fair, computation impaired, language function intact, attention span short. Mood and affect somewhat withdrawn. LABORATORY DATA: Reviewed. IMPRESSION: Schizoaffective disorder, bipolar type, mixed with psychotic features versus schizophrenia, chronic, undifferentiated with acute exacerbation. Rest unchanged. PLAN: Continue current psychotropics. Gradually increase the Clozaril with CBC, absolute neutrophil counts every Sunday and then reduce the Risperdal at that stage. Maintain Depakote level as therapeutic and Provera for his sexually inappropriate behaviors. MAN Bessy CHINCHILLA MD DR: MARY/gage JOB#: [id number] / [id number]
[2019-01-30 05:49] VITALS: BP 123/74
[2019-01-30] MEDS: LEVOTHYROXINE 25 MCG TABLET. PO SCH (06:02)
[2019-01-30] MEDS: CHOLECALCIFEROL (VITAMIN D3) 50,000 UNIT CAPSULE PO SCH (08:03)
[2019-01-30] MEDS: risperiDONE 2 MG TABLET. PO SCH ×2 (08:04→19:59)
[2019-01-30] MEDS: POLYETHYLENE GLYCOL 3350 17 GM PACKET. PO SCH (08:04)
[2019-01-30] MEDS: FAMOTIDINE 20 MG TABLET PO SCH ×2 (08:04→19:59)
[2019-01-30] MEDS: DEXTROMETHORPHAN/QUINIDINE 20/10MG CAPSULE. PO SCH ×2 (08:05→20:01)
[2019-01-30] MEDS: MULTIVITAMIN with MINERAL TABLET. PO SCH (08:05)
[2019-01-30] MEDS: DORZOLAMIDE/TIMOLOL 2%/0.5% OPHTH SOLUTION 10ML BOTTLE. OD SCH ×2 (08:05→20:01)
[2019-01-30] MEDS: LACTULOSE 20 GM/30 ML SOLUTION. PO SCH ×2 (08:05→19:59)
[2019-01-30] MEDS: DIVALPROEX 125 MG CAP.SPRINK PO SCH ×2 (08:05→19:59)
[2019-01-30] MEDS: LORazepam 0.5 MG TABLET PO SCH ×3 (08:09→20:00)
[2019-01-30 19:00] VITALS: BP 112/71
[2019-01-30] MEDS: cloZAPine 25 MG TABLET PO SCH (19:59)
[2019-01-30] MEDS: TAMSULOSIN 0.4 MG CAP.ER.24H. PO SCH (19:59)
[2019-01-30] MEDS: SENNOSIDES/DOCUSATE 8.6/50MG TABLET. PO SCH (19:59)
[2019-01-30] MEDS: traZODone 50 MG TABLET. PO SCH (19:59)
[2019-01-30] MEDS: LATANOPROST 0.005% OPHTH SOLUTION 2.5ML BOTTLE. OD SCH (20:01)
--- NOTE | 2019-01-30 22:38 | PDOC ---
Exam Note: Adrián Note: Please also refer to the separate dictated note~for this date of service dictated separately.~Patient seen individually. Discussed the patient with Nursing staff reviewed the chart.~Reviewed interim history and current functioning. Reviewed vital signs,~Labs/ Radiology~and current medications noted below. Continue current treatment with the changes noted in the dictated addendum note Assessment: Vital Signs: Vital Signs Date Time Temp Pulse Resp B/P (MAP) Pulse Ox O2 Delivery O2 Flow Rate FiO2 01/30/19 05:49 98.3 62 20 123/74 (90) 97 01/26/19 21:00 Room Air I&O Intake and Output 01/30/19 07:00 Intake Total 1080 ml Balance 1080 ml Intake Oral 1080 ml Current Medications: Meds: Current Medications Acetaminophen (Tylenol) 650 mg PRN Q4HRS PRN PO FEVER; Start 01/08/19 at 21:30 ; Stop 01/09/19 at 21:29; Status Cancel Acetaminophen (Tylenol) 650 mg PRN Q6HRS PRN PO PAIN / TEMP; Start 01/09/19 at 00:30; Status Cancel Multi-Ingredient Ointment (Analgesic [place]) 1 she PRN QID PRN TP MUSCLE PAIN; Start 01/09/19 at 00:30 Al Hydroxide/Mg Hydroxide (Mylanta Plus Xs) 15 ml PRN AFTMEALHC PRN PO DYSPEPSIA; Start 01/09/19 at 00:30 Magnesium Hydroxide (Milk Of Magnesia) 2,400 mg PRN QHS PRN PO CONSTIPATION; Start 01/09/19 at 00:30 Divalproex Sodium (Depakote Sprinkles) 125 mg BID PO Last administered on at 07:52; Start 01/09/19 at 09:00; Stop 01/10/19 at 17:11; Status DC Estradiol (Estrace) 0.5 mg DAILY PO Last administered on 01/23/19at 08:20; Start 01/09/19 at 09:00; Stop 01/23/19 at 09:55; Status DC Haloperidol Lactate (Haldol) 5 mg PRN DAILY PRN IM ANXIETY / AGITATION; Start 01/09/19 at 02:15; Stop 01/12/19 at 16:48; Status DC Lorazepam (Ativan) 0.5 mg PRN DAILY PRN PO ANXIETY; Start 01/09/19 at 02:15 Lorazepam (Ativan) 0.5 mg TID PO Last administered on 01/30/19 20:00; Start at 09:00 Risperidone (RisperDAL) 2 mg BID PO Last administered on 01/17/19 07:55; Start 01/09/19 at 09:00; Stop 01/17/19 at 16:41; Status DC Acetaminophen (Tylenol) 650 mg PRN Q6HRS PRN PO PAIN / TEMP; Start 01/09/19 at 02:15 Vitamin D (Vitamin D3) 50,000 unit WEEKLY PO Last administered on 01/30/19 08: 03; Start 01/09/19 at 09:00 Dextromethorphan/ Quinidine (Nuedexta 20-10 Mg Capsule) 1 cap BID PO Last administered on 01/30/19 20:01; Start 01/09/19 at 09:00 Senna/Docusate Sodium (Senna Plus) 1 tab HS PO Last administered on 01/30/19 19:59; Start 01/09/19 at 21:00 Tamsulosin HCl (Flomax) 0.4 mg HS PO Last administered on 01/30/19 19:59; Start 01/09/19 at 21:00 Acetaminophen/ Codeine Phosphate (Tylenol #3) 1 tab PRN Q4HRS PRN PO PAIN; Start 01/09/19 at 02:15 Acetaminophen/ Codeine Phosphate (Tylenol #3) 2 tab PRN Q4HRS PRN PO PAIN; Start 01/09/19 at 02:15 Non-Formulary Medication (Amino Acids/ Protein Hydrolys (Pro-Stat Awc Liquid Packet)) 30 ml DAILY PO ; Start 01/09/19 at 09:00; Status UNV Non-Formulary Medication (Carboxymethylcellulos/ Glycerin (Refresh Optive Eye Drops)) 1 drop HS OD ; Start 01/09/19 at 21:00; Stop 01/09/19 at 21:00; Status DC Artificial Tears (Refresh Classic) 1 drop QID OU ; Start 01/09/19 at 09:00; Stop 01/09/19 at 09:00; Status DC Dorzolamide/ Timolol (Cosopt) 1 drop BID OD Last administered on 01/30/19 20: 01; Start 01/09/19 at 09:00 Lactulose (Lactulose) 20 gm BID PO Last administered on 01/30/19 19:59; Start 01/09/19 at 09:00 Latanoprost (Xalatan) 1 drop QHS OD Last administered on 01/24/19 20:03; Start 01/09/19 at 21:00; Stop 01/25/19 at 16:10; Status DC Levothyroxine Sodium (Synthroid) 25 mcg DAILY06 PO Last administered on 06:02; Start 01/09/19 at 06:00 Multivitamins/ Calcium (Thera-M Plus) 1 tab DAILY PO Last administered on 08:05; Start 01/09/19 at 09:00 Polyethylene Glycol (miraLAX) 17 gm DAILY PO Last administered on 01/30/19 08: 04; Start 01/09/19 at 09:00 Famotidine (Pepcid) 20 mg BID PO Last administered on 01/30/19 19:59; Start at 09:00 Erythromycin (Romycin) 1 inch DAILY OS Last administered on 01/10/19 07:53; Start 01/09/19 at 09:00; Stop 01/10/19 at 10:32; Status DC Divalproex Sodium (Depakote Sprinkles) 250 mg BID PO Last administered on 07:41; Start 01/10/19 at 21:00; Stop 01/13/19 at 18:48; Status DC Trazodone HCl (Desyrel) 50 mg QHS PO Last administered on 01/30/19 19:59; Start 01/10/19 at 21:00 Trazodone HCl (Desyrel) 50 mg PRN QHS PRN PO INSOMNIA; Start 01/10/19 at 17:15 Divalproex Sodium (Depakote Sprinkles) 500 mg BID PO Last administered on 19:59; Start 01/13/19 at 21:00 Risperidone (RisperDAL) 1.5 mg DAILY PO Last administered on 01/19/19 07:36; Start 01/18/19 at 09:00; Stop 01/20/19 at 08:59; Status DC Risperidone (RisperDAL) 2 mg QHS PO Last administered on 01/19/19 21:14; Start 01/17/19 at 21:00; Stop 01/20/19 at 20:59; Status DC Risperidone (RisperDAL) 1.5 mg BID PO Last administered on 01/25/19 08:23; Start 01/20/19 at 09:00; Stop 01/25/19 at 12:04; Status DC Medroxyprogesterone Acetate (Provera) 2.5 mg DAILY PO Last administered on 01/30 08:04; Start 01/24/19 at 09:00 Risperidone (RisperDAL) 2 mg BID PO Last administered on 01/30/19 19:59; Start 01/25/19 at 21:00 Olanzapine (ZyPREXA ZYDIS) 5 mg PRN Q2HR PRN PO PSYCHOSIS Last administered on 01/27/19 11:31; Start 01/25/19 at 12:00 Latanoprost (Xalatan) 1 drop QHS OD Last administered on 01/30/19 20:01; Start 01/25/19 at 16:10 Clozapine (Clozaril) 25 mg HS PO Last administered on 01/30/19 19:59; Start at 21:00 Active Scripts Active Reported Ranitidine Hcl 150 Mg Tablet 150 Mg PO BID Tylenol (Acetaminophen) 325 Mg Tablet 650 Mg PO PRN Q6HRS Flomax (Tamsulosin Hcl) 0.4 Mg Cap.er.24h 0.4 Mg PO HS Senna Plus Tablet (Sennosides/Docusate Sodium) 1 Each Tablet 1 Each PO HS Risperidone 2 Mg Tablet 2 Mg PO BID Refresh Optive Eye Drops (Carboxymethylcellulos/Glycerin) 15 Ml Drops 1 Drop OU QID Refresh Optive Eye Drops (Carboxymethylcellulos/Glycerin) 15 Ml Drops 1 Drop OD HS Pro-Stat Awc Liquid Packet (Amino Acids/Protein Hydrolys) 30 Ml Liquid.pkt 30 Ml PO DAILY Miralax (Polyethylene Glycol 3350) 17 Gm Powd.pack 17 Gm PO DAILY Nuedexta 20-10 Mg Capsule (Dextromethorphan Hbr/Quinidine) 1 Each Capsule 1 Each PO BID Multivitamins (Multivitamin) 1 Each Tablet 1 Each PO DAILY Levothyroxine Sodium 25 Mcg Tablet 25 Mcg PO DAILYAC Latanoprost 2.5 Ml Drops 1 Drop OD QHS Lactulose 10 Gm/15 Ml Solution 20 Gm PO BID Haloperidol Lactate 5 Mg/1 Ml Vial 5 Mg IM PRN DAILY PRN Estradiol 0.5 Mg Tablet 0.5 Mg PO DAILY Erythromycin (Erythromycin Base) 1 Gm Oint...g. 1 She OS BID Dorzolamide-Timolol Eye Drops (Dorzolamide Hcl/Timolol Maleat) 10 Ml Drops 1 Drop OD BID Depakote (Divalproex Sodium) 500 Mg Tablet.dr 125 Mg PO BID D3-50 (Cholecalciferol (Vitamin D3)) 50,000 Unit Capsule 50,000 Unit PO WEEKLY SUNDAY Lorazepam 0.5 Mg Tablet 0.5 Mg PO PRN DAILY PRN Lorazepam 0.5 Mg Tablet 0.5 Mg PO TID Tylenol With Codeine #3 Tablet (Acetaminophen With Codeine) 1 Each Tablet 2 Each PO PRN Q4HRS PRN Tylenol With Codeine #3 Tablet (Acetaminophen With Codeine) 1 Each Tablet 1 Each PO PRN Q4HRS PRN I have reviewed the current psychotropics carefully including drug interactions. Risk benefit ratio favors no change other than as noted in my dictated progress note. Diagnosis: Problems: (1) Medical clearance for psychiatric admission (2) Anxiety disorder (3) Major depressive disorder, recurrent episode (4) Impulse control disorder (5) Schizoaffective disorder, chronic condition with acute exacerbation (6) Mild cognitive disorder LEENA CHINCHILLA MD Jan 30, 2019 22:38
[2019-01-31] MEDS: LEVOTHYROXINE 25 MCG TABLET. PO SCH (05:51)
[2019-01-31 06:04] VITALS: BP 115/74
[2019-01-31] MEDS: risperiDONE 2 MG TABLET. PO SCH ×2 (07:46→20:15)
[2019-01-31] MEDS: FAMOTIDINE 20 MG TABLET PO SCH ×2 (07:46→20:15)
[2019-01-31] MEDS: MULTIVITAMIN with MINERAL TABLET. PO SCH (07:46)
[2019-01-31] MEDS: LACTULOSE 20 GM/30 ML SOLUTION. PO SCH ×2 (07:46→20:15)
[2019-01-31] MEDS: DIVALPROEX 125 MG CAP.SPRINK PO SCH ×2 (07:46→20:15)
[2019-01-31] MEDS: POLYETHYLENE GLYCOL 3350 17 GM PACKET. PO SCH (07:46)
[2019-01-31] MEDS: DEXTROMETHORPHAN/QUINIDINE 20/10MG CAPSULE. PO SCH ×2 (07:46→20:17)
[2019-01-31] MEDS: DORZOLAMIDE/TIMOLOL 2%/0.5% OPHTH SOLUTION 10ML BOTTLE. OD SCH ×2 (07:47→20:15)
[2019-01-31] MEDS: LORazepam 0.5 MG TABLET PO SCH ×3 (07:53→20:17)
[2019-01-31 15:55] VITALS: BP 103/68
[2019-01-31] MEDS: traZODone 50 MG TABLET. PO SCH (20:15)
[2019-01-31] MEDS: SENNOSIDES/DOCUSATE 8.6/50MG TABLET. PO SCH (20:15)
[2019-01-31] MEDS: TAMSULOSIN 0.4 MG CAP.ER.24H. PO SCH (20:15)
[2019-01-31] MEDS: cloZAPine 25 MG TABLET PO SCH (20:15)
[2019-01-31] MEDS: LATANOPROST 0.005% OPHTH SOLUTION 2.5ML BOTTLE. OD SCH (20:17)
--- NOTE | 2019-01-31 22:37 | PDOC ---
Exam Note: Adrián Note: Please also refer to the separate dictated note~for this date of service dictated separately.~Patient seen individually. Discussed the patient with Nursing staff reviewed the chart.~Reviewed interim history and current functioning. Reviewed vital signs,~Labs/ Radiology~and current medications noted below. Continue current treatment with the changes noted in the dictated addendum note Assessment: Vital Signs: Vital Signs Date Time Temp Pulse Resp B/P (MAP) Pulse Ox O2 Delivery O2 Flow Rate FiO2 01/31/19 15:55 97.2 69 20 103/68 (80) 99 01/31/19 06:04 Room Air I&O Intake and Output 01/31/19 07:00 Intake Total 1320 ml Balance 1320 ml Intake Oral 1320 ml # Voids 1 Current Medications: Meds: Current Medications Acetaminophen (Tylenol) 650 mg PRN Q4HRS PRN PO FEVER; Start 01/08/19 at 21:30 ; Stop 01/09/19 at 21:29; Status Cancel Acetaminophen (Tylenol) 650 mg PRN Q6HRS PRN PO PAIN / TEMP; Start 01/09/19 at 00:30; Status Cancel Multi-Ingredient Ointment (Analgesic [place]) 1 she PRN QID PRN TP MUSCLE PAIN; Start 01/09/19 at 00:30 Al Hydroxide/Mg Hydroxide (Mylanta Plus Xs) 15 ml PRN AFTMEALHC PRN PO DYSPEPSIA; Start 01/09/19 at 00:30 Magnesium Hydroxide (Milk Of Magnesia) 2,400 mg PRN QHS PRN PO CONSTIPATION; Start 01/09/19 at 00:30 Divalproex Sodium (Depakote Sprinkles) 125 mg BID PO Last administered on at 07:52; Start 01/09/19 at 09:00; Stop 01/10/19 at 17:11; Status DC Estradiol (Estrace) 0.5 mg DAILY PO Last administered on 01/23/19at 08:20; Start 01/09/19 at 09:00; Stop 01/23/19 at 09:55; Status DC Haloperidol Lactate (Haldol) 5 mg PRN DAILY PRN IM ANXIETY / AGITATION; Start 01/09/19 at 02:15; Stop 01/12/19 at 16:48; Status DC Lorazepam (Ativan) 0.5 mg PRN DAILY PRN PO ANXIETY; Start 01/09/19 at 02:15 Lorazepam (Ativan) 0.5 mg TID PO Last administered on 01/31/19 20:17; Start at 09:00 Risperidone (RisperDAL) 2 mg BID PO Last administered on 01/17/19at 07:55; Start 01/09/19 at 09:00; Stop 01/17/19 at 16:41; Status DC Acetaminophen (Tylenol) 650 mg PRN Q6HRS PRN PO PAIN / TEMP; Start 01/09/19 at 02:15 Vitamin D (Vitamin D3) 50,000 unit WEEKLY PO Last administered on 01/30/19 08: 03; Start 01/09/19 at 09:00 Dextromethorphan/ Quinidine (Nuedexta 20-10 Mg Capsule) 1 cap BID PO Last administered on 01/31/19 20:17; Start 01/09/19 at 09:00 Senna/Docusate Sodium (Senna Plus) 1 tab HS PO Last administered on 01/31/19at 20:15; Start 01/09/19 at 21:00 Tamsulosin HCl (Flomax) 0.4 mg HS PO Last administered on 01/31/19 20:15; Start 01/09/19 at 21:00 Acetaminophen/ Codeine Phosphate (Tylenol #3) 1 tab PRN Q4HRS PRN PO PAIN; Start 01/09/19 at 02:15 Acetaminophen/ Codeine Phosphate (Tylenol #3) 2 tab PRN Q4HRS PRN PO PAIN; Start 01/09/19 at 02:15 Non-Formulary Medication (Amino Acids/ Protein Hydrolys (Pro-Stat [facility] Liquid Packet)) 30 ml DAILY PO ; Start 01/09/19 at 09:00; Status UNV Non-Formulary Medication (Carboxymethylcellulos/ Glycerin (Refresh Optive Eye Drops)) 1 drop HS OD ; Start 01/09/19 at 21:00; Stop 01/09/19 at 21:00; Status DC Artificial Tears (Refresh Classic) 1 drop QID OU ; Start 01/09/19 at 09:00; Stop 01/09/19 at 09:00; Status DC Dorzolamide/ Timolol (Cosopt) 1 drop BID OD Last administered on 01/31/19 20: 15; Start 01/09/19 at 09:00 Lactulose (Lactulose) 20 gm BID PO Last administered on 01/31/19 20:15; Start 01/09/19 at 09:00 Latanoprost (Xalatan) 1 drop QHS OD Last administered on 01/24/19 20:03; Start 01/09/19 at 21:00; Stop 01/25/19 at 16:10; Status DC Levothyroxine Sodium (Synthroid) 25 mcg DAILY06 PO Last administered on 05:51; Start 01/09/19 at 06:00 Multivitamins/ Calcium (Thera-M Plus) 1 tab DAILY PO Last administered on 07:46; Start 01/09/19 at 09:00 Polyethylene Glycol (miraLAX) 17 gm DAILY PO Last administered on 01/31/19 07: 46; Start 01/09/19 at 09:00 Famotidine (Pepcid) 20 mg BID PO Last administered on 01/31/19 20:15; Start at 09:00 Erythromycin (Romycin) 1 inch DAILY OS Last administered on 01/10/19 07:53; Start 01/09/19 at 09:00; Stop 01/10/19 at 10:32; Status DC Divalproex Sodium (Depakote Sprinkles) 250 mg BID PO Last administered on 07:41; Start 01/10/19 at 21:00; Stop 01/13/19 at 18:48; Status DC Trazodone HCl (Desyrel) 50 mg QHS PO Last administered on 01/31/19 20:15; Start 01/10/19 at 21:00 Trazodone HCl (Desyrel) 50 mg PRN QHS PRN PO INSOMNIA; Start 01/10/19 at 17:15 Divalproex Sodium (Depakote Sprinkles) 500 mg BID PO Last administered on 20:15; Start 01/13/19 at 21:00 Risperidone (RisperDAL) 1.5 mg DAILY PO Last administered on 01/19/19 07:36; Start 01/18/19 at 09:00; Stop 01/20/19 at 08:59; Status DC Risperidone (RisperDAL) 2 mg QHS PO Last administered on 01/19/19 21:14; Start 01/17/19 at 21:00; Stop 01/20/19 at 20:59; Status DC Risperidone (RisperDAL) 1.5 mg BID PO Last administered on 01/25/19 08:23; Start 01/20/19 at 09:00; Stop 01/25/19 at 12:04; Status DC Medroxyprogesterone Acetate (Provera) 2.5 mg DAILY PO Last administered on 01/31 07:46; Start 01/24/19 at 09:00 Risperidone (RisperDAL) 2 mg BID PO Last administered on 01/31/19 20:15; Start 01/25/19 at 21:00 Olanzapine (ZyPREXA ZYDIS) 5 mg PRN Q2HR PRN PO PSYCHOSIS Last administered on 01/27/19 11:31; Start 01/25/19 at 12:00 Latanoprost (Xalatan) 1 drop QHS OD Last administered on 01/31/19 20:17; Start 01/25/19 at 16:10 Clozapine (Clozaril) 25 mg HS PO Last administered on 01/31/19 20:15; Start at 21:00 Active Scripts Active Reported Ranitidine Hcl 150 Mg Tablet 150 Mg PO BID Tylenol (Acetaminophen) 325 Mg Tablet 650 Mg PO PRN Q6HRS Flomax (Tamsulosin Hcl) 0.4 Mg Cap.er.24h 0.4 Mg PO HS Senna Plus Tablet (Sennosides/Docusate Sodium) 1 Each Tablet 1 Each PO HS Risperidone 2 Mg Tablet 2 Mg PO BID Refresh Optive Eye Drops (Carboxymethylcellulos/Glycerin) 15 Ml Drops 1 Drop OU QID Refresh Optive Eye Drops (Carboxymethylcellulos/Glycerin) 15 Ml Drops 1 Drop OD HS Pro-Stat Awc Liquid Packet (Amino Acids/Protein Hydrolys) 30 Ml Liquid.pkt 30 Ml PO DAILY Miralax (Polyethylene Glycol 3350) 17 Gm Powd.pack 17 Gm PO DAILY Nuedexta 20-10 Mg Capsule (Dextromethorphan Hbr/Quinidine) 1 Each Capsule 1 Each PO BID Multivitamins (Multivitamin) 1 Each Tablet 1 Each PO DAILY Levothyroxine Sodium 25 Mcg Tablet 25 Mcg PO DAILYAC Latanoprost 2.5 Ml Drops 1 Drop OD QHS Lactulose 10 Gm/15 Ml Solution 20 Gm PO BID Haloperidol Lactate 5 Mg/1 Ml Vial 5 Mg IM PRN DAILY PRN Estradiol 0.5 Mg Tablet 0.5 Mg PO DAILY Erythromycin (Erythromycin Base) 1 Gm Oint...g. 1 She OS BID Dorzolamide-Timolol Eye Drops (Dorzolamide Hcl/Timolol Maleat) 10 Ml Drops 1 Drop OD BID Depakote (Divalproex Sodium) 500 Mg Tablet.dr 125 Mg PO BID D3-50 (Cholecalciferol (Vitamin D3)) 50,000 Unit Capsule 50,000 Unit PO WEEKLY SUNDAY Lorazepam 0.5 Mg Tablet 0.5 Mg PO PRN DAILY PRN Lorazepam 0.5 Mg Tablet 0.5 Mg PO TID Tylenol With Codeine #3 Tablet (Acetaminophen With Codeine) 1 Each Tablet 2 Each PO PRN Q4HRS PRN Tylenol With Codeine #3 Tablet (Acetaminophen With Codeine) 1 Each Tablet 1 Each PO PRN Q4HRS PRN I have reviewed the current psychotropics carefully including drug interactions. Risk benefit ratio favors no change other than as noted in my dictated progress note. Diagnosis: Problems: (1) Anxiety disorder (2) Major depressive disorder, recurrent episode (3) Impulse control disorder (4) Schizoaffective disorder, chronic condition with acute exacerbation (5) Mild cognitive disorder LEENA CHINCHILLA MD Jan 31, 2019 22:37
[2019-02-01] MEDS: LEVOTHYROXINE 25 MCG TABLET. PO SCH (05:09)
[2019-02-01 06:11] VITALS: BP 113/75
[2019-02-01] MEDS: DIVALPROEX 125 MG CAP.SPRINK PO SCH ×2 (07:56→20:08)
[2019-02-01] MEDS: MULTIVITAMIN with MINERAL TABLET. PO SCH (07:56)
[2019-02-01] MEDS: LACTULOSE 20 GM/30 ML SOLUTION. PO SCH ×2 (07:56→20:07)
[2019-02-01] MEDS: risperiDONE 2 MG TABLET. PO SCH ×2 (07:56→20:08)
[2019-02-01] MEDS: DEXTROMETHORPHAN/QUINIDINE 20/10MG CAPSULE. PO SCH ×2 (07:56→20:08)
[2019-02-01] MEDS: FAMOTIDINE 20 MG TABLET PO SCH ×2 (07:56→20:08)
[2019-02-01] MEDS: POLYETHYLENE GLYCOL 3350 17 GM PACKET. PO SCH (07:56)
[2019-02-01] MEDS: DORZOLAMIDE/TIMOLOL 2%/0.5% OPHTH SOLUTION 10ML BOTTLE. OD SCH ×2 (07:57→20:07)
[2019-02-01] MEDS: LORazepam 0.5 MG TABLET PO SCH ×3 (08:00→20:08)
--- NOTE | 2019-02-01 15:23 | PN ---
DATE: 01/29/2019 PSYCHIATRIC PROGRESS NOTE This late entry for 01/29/2019 covers elements not covered in my initial note. SUBJECTIVE: I met with the patient at some length in the evening. Per nursing report, the patient slept 9-1/2 hours previous night. He has been acting "weird" per nursing report. He took his clothes off, was sexually inappropriate, but he is compliant with medication. He appears psychotic. REVIEW OF SYSTEMS: No CV, , pulmonary, eye, ENT system symptoms on review. Reliability varies. MENTAL STATUS EXAM: Oriented to himself and situation. Speech moderate latency, often responses monosyllabic. Abstraction fair, computation impaired, language function intact, attention span short. Mood and affect withdrawn. LABORATORY DATA: Reviewed. IMPRESSION: Unchanged from initial note. PLAN: No change from initial note. MAN Bessy CHINCHILLA MD DR: MARY/gage JOB#: [id number] / [id number]
[2019-02-01 15:50] VITALS: BP 132/83
--- NOTE | 2019-02-01 16:42 | PN ---
DATE: 01/30/2019 PSYCHIATRIC PROGRESS NOTE This late entry 01/30/2019, covers elements not covered in my initial note. SUBJECTIVE: I met with the patient in the evening and the patient was staffed at treatment team meeting with the entire team in the morning and the patient's daughter, Dyana, attended the treatment team meeting. Lengthy discussion about the patient's progress, diagnoses, current response to treatment. The fact that Depakote so far had little beneficial effect on his primary diagnoses may be schizophrenia rather than schizoaffective disorder. He is sleeping about 7-1/2 hours, appetite 80%. Previous night he was urinating in inappropriate places, trying to kiss staff and throwing . REVIEW OF SYSTEMS: No CV, , pulmonary, eye system symptoms on review. MENTAL STATUS EXAM: Oriented to himself and situation. Speech is moderate latency, often responses monosyllabic. Abstraction fair, computation impaired, language function intact, attention span short. Mood and affect withdrawn. LABORATORY DATA: Reviewed. IMPRESSION: Schizophrenia, chronic, undifferentiated with acute exacerbation; anxiety disorder, unspecified; impulse control disorder, unspecified. PLAN: Continue current psychotropics. We have added Clozaril. We will increase this post-weekly absolute neutrophil count and gradually reduce the Risperdal. Maintain Depakote. MAN Bessy CHINCHILLA MD DR: MARY/gage JOB#: [id number] / [id number]
[2019-02-01 17:41] LABS: ALBUMIN 3.2 g/dL (3.4-5.0); ALBUMIN/GLOBULIN RATIO 0.9 (1.0-1.7); CALCIUM 9.3 mg/dL (8.5-10.1); CREATININE 1.2 mg/dL (0.7-1.3); GFR 60.8; POTASSIUM 4.8 mmol/L (3.5-5.1); TOTAL BILIRUBIN 0.2 mg/dL (0.2-1.0); TOTAL PROTEIN 6.8 g/dL (6.4-8.2)
[2019-02-01 18:14] LABS: BASO % 1 % (0-3); EOS # 0.1 x10^3/uL (0.0-0.7); EOS % 2 % (0-3); HEMATOCRIT 36.2 % (39.0-53.0); HEMOGLOBIN 11.9 g/dL (13.0-17.5); LYMPH # 1.2 x10^3/uL (1.0-4.8); LYMPH % 22 % (24-48); MEAN CORPUSCULAR HEMOGLOBIN 29 pg (25-35); MEAN CORPUSCULAR HGB CONC 33 g/dL (31-37); MEAN CORPUSCULAR VOLUME 88 fL (79-100); MONO # 1.1 x10^3/uL (0.0-1.1); MONO % 19 % (0-9); NEUT # 3.1 x10^3uL (1.8-7.7); NEUT % 56 % (31-73); PLATELET COUNT 199 x10^3/uL (140-400); RED BLOOD COUNT 4.09 x10^6/uL (4.30-5.70); RED CELL DISTRIBUTION WIDTH 13.9 % (11.5-14.5); WHITE BLOOD COUNT 5.6 x10^3/uL (4.0-11.0)
[2019-02-01] MEDS: SENNOSIDES/DOCUSATE 8.6/50MG TABLET. PO SCH (20:08)
[2019-02-01] MEDS: LATANOPROST 0.005% OPHTH SOLUTION 2.5ML BOTTLE. OD SCH (20:08)
[2019-02-01] MEDS: traZODone 50 MG TABLET. PO SCH (20:08)
[2019-02-01] MEDS: cloZAPine 25 MG TABLET PO SCH (20:08)
[2019-02-01] MEDS: TAMSULOSIN 0.4 MG CAP.ER.24H. PO SCH (20:08)
--- NOTE | 2019-02-01 22:22 | PN ---
DATE: 01/31/2019 PSYCHIATRIC PROGRESS NOTE This late entry 01/31/2019 covers elements not covered in my initial note. SUBJECTIVE: I met with the patient in the morning. The patient slept 4-1/2 hours previous night. He has been joking with staff, was making hand movements as if he is masturbating and I addressed this with him. He was a little more interactive as I talked to him about my conversation with Dyana, his sister on 01/30/2019 at treatment team meeting. Questions she asked his treatment, his medications; answered his questions about this. On a careful review of his history, it does appear he probably has a diagnosis of schizophrenia, chronic, undifferentiated rather than schizoaffective disorder, but he does have an element of affective disorder for which we will continue Depakote, even though I am not entirely sure how effective it will be. REVIEW OF SYSTEMS: No CV, , pulmonary, eye, ENT system symptoms on review. MENTAL STATUS EXAM: Oriented to himself and situation. Speech has some latency, low in rate and rhythm, low in volume. Abstraction fair, computation impaired, language function intact, attention span short. Mood and affect somewhat withdrawn. LABORATORY DATA: Reviewed. IMPRESSION: Schizophrenia, chronic, undifferentiated with acute exacerbation; anxiety disorder, unspecified; schizoaffective disorder, bipolar type, mixed with psychotic features. PLAN: No change from initial note. We have increased the Risperdal, started Clozaril. Check absolute neutrophil count on Sunday02/03/2019 and then increase thereafter. MAN Bessy CHINCHILLA MD DR: MARY/gage JOB#: [id number] / [id number]
--- NOTE | 2019-02-02 01:08 | PN ---
DATE: 02/01/2019 SUBJECTIVE: The patient was seen today, met with the staff, chart reviewed and also covering for Dr. Jordan. The patient's behavior has improved. He is no longer masturbating in public. The patient has not exhibited any aggressive behaviors towards anyone, but the patient was withdrawn, marked psychomotor retardation and also inappropriate affect. OBSERVATION: VITAL SIGNS: Temperature 98, blood pressure 113/75, pulse 66, respirations 18, O2 sat 98%. Slept about 7 hours last night. His appetite is fair. MEDICATIONS: Reviewed. Currently is on Clozaril 25 mg at night, Risperdal 2 mg b.i.d., olanzapine 5 mg q. 2 hours p.r.n. The patient is also on Provera 2.5 mg daily, Depakote 500 mg b.i.d., trazodone 50 mg at night and also p.r.n. for sleep. The patient is also on lorazepam 0.5 mg t.i.d. p.o. The patient is not having any other physical complaints. The patient has not had any falls. ASSESSMENT: Schizoaffective disorder, bipolar type, mixed with psychotic features; anxiety disorder, unspecified. PLAN: Continue with the treatment. Length of stay is 5-7 days. LILLY PORTILLO MD DR: TUCKER/gage JOB#: [id number] / [id number]
[2019-02-02 05:38] VITALS: BP 113/69
[2019-02-02] MEDS: LEVOTHYROXINE 25 MCG TABLET. PO SCH (05:49)
[2019-02-02] MEDS: POLYETHYLENE GLYCOL 3350 17 GM PACKET. PO SCH (08:12)
[2019-02-02] MEDS: DORZOLAMIDE/TIMOLOL 2%/0.5% OPHTH SOLUTION 10ML BOTTLE. OD SCH ×2 (08:12→20:09)
[2019-02-02] MEDS: DIVALPROEX 125 MG CAP.SPRINK PO SCH ×2 (08:13→20:07)
[2019-02-02] MEDS: MULTIVITAMIN with MINERAL TABLET. PO SCH (08:13)
[2019-02-02] MEDS: FAMOTIDINE 20 MG TABLET PO SCH ×2 (08:13→20:07)
[2019-02-02] MEDS: DEXTROMETHORPHAN/QUINIDINE 20/10MG CAPSULE. PO SCH ×2 (08:13→20:11)
[2019-02-02] MEDS: LACTULOSE 20 GM/30 ML SOLUTION. PO SCH ×2 (08:13→20:07)
[2019-02-02] MEDS: risperiDONE 2 MG TABLET. PO SCH ×2 (08:13→20:07)
[2019-02-02] MEDS: LORazepam 0.5 MG TABLET PO SCH ×3 (08:16→20:09)
[2019-02-02 16:07] VITALS: BP 113/76
[2019-02-02] MEDS: SENNOSIDES/DOCUSATE 8.6/50MG TABLET. PO SCH (20:07)
[2019-02-02] MEDS: traZODone 50 MG TABLET. PO SCH (20:07)
[2019-02-02] MEDS: TAMSULOSIN 0.4 MG CAP.ER.24H. PO SCH (20:07)
[2019-02-02] MEDS: LATANOPROST 0.005% OPHTH SOLUTION 2.5ML BOTTLE. OD SCH (20:09)
[2019-02-02] MEDS: cloZAPine 25 MG TABLET PO SCH (20:09)
--- NOTE | 2019-02-02 20:20 | PN ---
DATE: 02/02/2019 SUBJECTIVE: The patient was seen today, met with the staff, chart reviewed. The patient continues exhibiting sexual behaviors including trying to masturbate and also lying on the floor, apparently also sexually preoccupied. The patient is withdrawn, isolative, but able to hold a reasonable conversation. Able to make eye contact. His affect is markedly blunted. The patient is not exhibiting any overt psychotic symptoms. OBSERVATION: VITAL SIGNS: Temperature 97.5, blood pressure 113/69, pulse 66, respirations 18, O2 sat 95%. Slept about 6 hours last night. His appetite is fair. The patient is participating in activities, but he is indifferent to surroundings, mostly nonverbal, but he is able to hold a conversation very brief. MEDICATIONS: The patient's medications were reviewed. He is currently on Clozaril 25 mg at night and was increased to 25 mg b.i.d. p.o. He is also on Risperdal 2 mg b.i.d., olanzapine 5 mg q. 2 hours p.r.n. The patient is also on Provera 2.5 mg daily, Depakote 500 mg b.i.d., trazodone 50 mg at night, and also p.r.n. for sleep. The patient is also on lorazepam 0.5 mg t.i.d. p.o. The patient denies of any physical complaints, but the patient does hide down on the floor exhibiting bizarre behaviors. ASSESSMENT: Schizoaffective disorder, bipolar type, mixed with psychotic features; anxiety disorder, unspecified. PLAN: To continue with the treatment. LENGTH OF STAY: 5-7 days. LILLY PORTILLO MD DR: TUCKER/gage JOB#: [id number] / [id number]
[2019-02-02 22:59] LABS: AMORPHOUS SEDIMENT,UR PRESENT /HPF; BACTERIA,URINE 0 /HPF (0-FEW); BILIRUBIN,URINE NEG (NEG); CLARITY,URINE HAZY; COLOR,URINE YELLOW; GLUCOSE,URINE NEG (NEG); NITRITE,URINE NEG (NEG); RBC,URINE 0 /HPF (0-2); SQUAMOUS EPITHELIAL CELL,UR OCC /LPF; UROBILINOGEN,URINE 0.2 mg/dL (0.2 mg/dL); WBC,URINE OCC /HPF (0-4)
[2019-02-03 05:58] VITALS: BP 127/81
[2019-02-03] MEDS: LEVOTHYROXINE 25 MCG TABLET. PO SCH (06:17)
[2019-02-03 07:39] LABS: BASO % 1 % (0-3); EOS # 0.2 x10^3/uL (0.0-0.7); EOS % 4 % (0-3); HEMOGLOBIN 12.2 g/dL (13.0-17.5); LYMPH # 1.1 x10^3/uL (1.0-4.8); LYMPH % 25 % (24-48); MEAN CORPUSCULAR HEMOGLOBIN 29 pg (25-35); MEAN CORPUSCULAR HGB CONC 33 g/dL (31-37); MEAN CORPUSCULAR VOLUME 87 fL (79-100); MONO # 0.7 x10^3/uL (0.0-1.1); MONO % 17 % (0-9); NEUT # 2.4 x10^3uL (1.8-7.7); NEUT % 54 % (31-73); PLATELET COUNT 189 x10^3/uL (140-400); RED BLOOD COUNT 4.25 x10^6/uL (4.30-5.70); RED CELL DISTRIBUTION WIDTH 13.9 % (11.5-14.5); WHITE BLOOD COUNT 4.4 x10^3/uL (4.0-11.0)
[2019-02-03] MEDS: risperiDONE 2 MG TABLET. PO SCH ×2 (08:23→19:16)
[2019-02-03] MEDS: FAMOTIDINE 20 MG TABLET PO SCH ×2 (08:23→19:15)
[2019-02-03] MEDS: LACTULOSE 20 GM/30 ML SOLUTION. PO SCH ×2 (08:23→19:16)
[2019-02-03] MEDS: cloZAPine 25 MG TABLET PO SCH ×2 (08:24→19:15)
[2019-02-03] MEDS: LORazepam 0.5 MG TABLET PO SCH ×3 (08:24→20:06)
[2019-02-03] MEDS: POLYETHYLENE GLYCOL 3350 17 GM PACKET. PO SCH (08:24)
[2019-02-03] MEDS: MULTIVITAMIN with MINERAL TABLET. PO SCH (08:24)
[2019-02-03] MEDS: DIVALPROEX 125 MG CAP.SPRINK PO SCH ×2 (08:24→19:15)
[2019-02-03] MEDS: DORZOLAMIDE/TIMOLOL 2%/0.5% OPHTH SOLUTION 10ML BOTTLE. OD SCH ×2 (08:24→19:17)
[2019-02-03] MEDS: DEXTROMETHORPHAN/QUINIDINE 20/10MG CAPSULE. PO SCH ×2 (08:25→19:16)
[2019-02-03 16:24] VITALS: BP 126/79
[2019-02-03] MEDS: SENNOSIDES/DOCUSATE 8.6/50MG TABLET. PO SCH (19:15)
[2019-02-03] MEDS: TAMSULOSIN 0.4 MG CAP.ER.24H. PO SCH (19:15)
[2019-02-03] MEDS: traZODone 50 MG TABLET. PO SCH (19:16)
[2019-02-03] MEDS: LATANOPROST 0.005% OPHTH SOLUTION 2.5ML BOTTLE. OD SCH (19:17)
--- NOTE | 2019-02-04 01:22 | PN ---
DATE: 02/03/2019 SUBJECTIVE: The patient was seen today, met with the staff, chart reviewed and also covering for Dr. Jordan. The patient's behavior has been fluctuating. The patient is most of the time noncommunicative, pacing, irritable, porter. The patient has been refusing medications lately. The patient also exhibit inappropriate behavior at times. The patient has not indulged in any sexual behaviors today. OBSERVATION: VITAL SIGNS: Temperature 97.9, blood pressure 127/81, pulse 64, respirations 18, O2 sat 95%. Slept about 7 hours last night. The patient's appetite decreased. The patient also showing some stiffness, shuffling gait, but able to walk. No falls. MEDICATIONS: The patient's current medications include Clozaril 25 mg at night and 25 mg in the morning, Risperdal 2 mg b.i.d., olanzapine 5 mg q. 2 hours p.r.n., Depakote 500 mg b.i.d., trazodone 50 mg at night and lorazepam 0.5 mg t.i.d. p.o. ASSESSMENT: 1. Schizoaffective disorder, bipolar type, mixed with psychotic features. 2. Anxiety disorder, unspecified. PLAN: To continue with the treatment. LENGTH OF STAY: 5 days. LILLY PORTILLO MD DR: TUCKER/gage JOB#: [id number] / [id number]
[2019-02-04 05:37] VITALS: BP 137/84
[2019-02-04] MEDS: LEVOTHYROXINE 25 MCG TABLET. PO SCH (05:57)
[2019-02-04] MEDS: LORazepam 0.5 MG TABLET PO SCH ×3 (05:57→20:50)
[2019-02-04] MEDS: cloZAPine 25 MG TABLET PO SCH ×2 (05:57→20:45)
[2019-02-04] MEDS: DIVALPROEX 125 MG CAP.SPRINK PO SCH ×2 (05:58→20:45)
[2019-02-04] MEDS: risperiDONE 2 MG TABLET. PO SCH ×2 (05:58→20:45)
[2019-02-04] MEDS: POLYETHYLENE GLYCOL 3350 17 GM PACKET. PO SCH (05:58)
[2019-02-04] MEDS: FAMOTIDINE 20 MG TABLET PO SCH ×2 (05:58→20:45)
[2019-02-04] MEDS: MULTIVITAMIN with MINERAL TABLET. PO SCH (05:58)
[2019-02-04] MEDS: LACTULOSE 20 GM/30 ML SOLUTION. PO SCH ×2 (05:58→20:44)
[2019-02-04] MEDS: DEXTROMETHORPHAN/QUINIDINE 20/10MG CAPSULE. PO SCH ×2 (06:00→20:50)
[2019-02-04] MEDS: DORZOLAMIDE/TIMOLOL 2%/0.5% OPHTH SOLUTION 10ML BOTTLE. OD SCH ×2 (09:00→20:50)
[2019-02-04 15:49] VITALS: BP 100/68
[2019-02-04] MEDS: SENNOSIDES/DOCUSATE 8.6/50MG TABLET. PO SCH (20:45)
[2019-02-04] MEDS: traZODone 50 MG TABLET. PO SCH (20:45)
[2019-02-04] MEDS: TAMSULOSIN 0.4 MG CAP.ER.24H. PO SCH (20:45)
[2019-02-04] MEDS: LATANOPROST 0.005% OPHTH SOLUTION 2.5ML BOTTLE. OD SCH (20:50)
--- NOTE | 2019-02-05 03:36 | PN ---
DATE: 02/04/2019 SUBJECTIVE: The patient was seen today, met with the staff, chart reviewed. The patient's behavior fluctuates. Today, his behavior has improved, still withdrawn, disorganized thinking, blunting of affect and slow to respond to questions. The patient is not able to hold a conversation. OBSERVATION: VITAL SIGNS: Temperature 98.5, blood pressure 137/84, pulse 78, respirations 18, O2 sat 95%. Slept about 6 hours last night. LABORATORY DATA: Reviewed. MEDICATIONS: The patient's current medications include Clozaril 25 mg at night and 25 mg in the morning, Risperdal 2 mg b.i.d., olanzapine 5 mg q. 2 hours p.r.n., Depakote 500 mg b.i.d., trazodone 50 mg at night and lorazepam 0.5 mg t.i.d. p.o. ASSESSMENT: 1. Schizoaffective disorder, bipolar type, mixed, psychotic features. 2. Anxiety disorder, unspecified. PLAN: To continue with the treatment. LENGTH OF STAY: 4-5 days. LILLY PORTILLO MD DR: TUCKER/gage JOB#: [id number] / [id number]
[2019-02-05 05:45] VITALS: BP 133/81
[2019-02-05] MEDS: LEVOTHYROXINE 25 MCG TABLET. PO SCH (06:00)
[2019-02-05] MEDS: MULTIVITAMIN with MINERAL TABLET. PO SCH (07:57)
[2019-02-05] MEDS: DIVALPROEX 125 MG CAP.SPRINK PO SCH ×2 (07:57→20:53)
[2019-02-05] MEDS: POLYETHYLENE GLYCOL 3350 17 GM PACKET. PO SCH (07:57)
[2019-02-05] MEDS: LACTULOSE 20 GM/30 ML SOLUTION. PO SCH ×2 (07:57→20:51)
[2019-02-05] MEDS: DEXTROMETHORPHAN/QUINIDINE 20/10MG CAPSULE. PO SCH ×2 (07:57→20:58)
[2019-02-05] MEDS: cloZAPine 25 MG TABLET PO SCH ×2 (07:57→20:51)
[2019-02-05] MEDS: risperiDONE 2 MG TABLET. PO SCH ×2 (07:57→20:52)
[2019-02-05] MEDS: FAMOTIDINE 20 MG TABLET PO SCH ×2 (07:57→20:52)
[2019-02-05] MEDS: LORazepam 0.5 MG TABLET PO SCH ×3 (07:57→20:58)
[2019-02-05] MEDS: DORZOLAMIDE/TIMOLOL 2%/0.5% OPHTH SOLUTION 10ML BOTTLE. OD SCH ×2 (07:58→20:57)
[2019-02-05 16:16] VITALS: BP 105/70
[2019-02-05] MEDS: SENNOSIDES/DOCUSATE 8.6/50MG TABLET. PO SCH (20:52)
[2019-02-05] MEDS: TAMSULOSIN 0.4 MG CAP.ER.24H. PO SCH (20:52)
[2019-02-05] MEDS: traZODone 50 MG TABLET. PO SCH (20:52)
[2019-02-05] MEDS: LATANOPROST 0.005% OPHTH SOLUTION 2.5ML BOTTLE. OD SCH (20:57)
[2019-02-06 05:53] VITALS: BP 115/76
[2019-02-06] MEDS: LEVOTHYROXINE 25 MCG TABLET. PO SCH (06:12)
--- NOTE | 2019-02-06 06:52 | CONS ---
DATE OF CONSULTATION: 02/04/2019 NEUROLOGY CONSULTATION REFERRING PHYSICIAN: Dr. Jordan/Dr. Rader. REASON FOR CONSULTATION: Intermittent tremor. HISTORY OF PRESENT ILLNESS: This is a 63-year-old male who was admitted on 01/09/2019 transferring from a [facility] on account of unmanageable dangerous behavior. He was diagnosed with possible schizoaffective disorders, anxiety disorders, symptoms of possible pseudobulbar palsy, bipolar disorders, and inappropriate sexual behavior. Neuro consult was requested because the patient has had intermittent tremor of the upper extremities. Currently, the patient denies headaches, visual disturbances, nausea, vomiting, chest pain, shortness of breath, palpitation, dysarthria, weakness. He denies suicidal ideations. PAST MEDICAL HISTORY: Significant for benign prostatic hypertrophy, hypothyroidism, pseudobulbar affect, GERD, and hypothyroidism. SOCIAL HISTORY: The patient is a resident at [facility]. There is no history of smoking, alcohol drinking, or illicit drug use. FAMILY HISTORY: Unobtainable. CURRENT HOME MEDICATIONS: Clozapine, risperidone, olanzapine, Depakote, trazodone, Flomax, laxative, Pepcid, MiraLax, multivitamins, eyedrops, Nuedexta, vitamin D, lorazepam, levothyroxine, Tylenol. ALLERGIES: CHLORPROMAZINE. REVIEW OF SYSTEMS: A 10-point review of system was performed and as mentioned above in history of present illness. PHYSICAL EXAMINATION: GENERAL: Well-developed, well-nourished male, not in acute distress. He weighs 149 pounds. VITAL SIGNS: Blood pressure 100/68, respiratory rate 17, pulse is 87 and regular, temperature 99, oxygen saturation is 99% on room air. HEENT: Normocephalic, atraumatic, otherwise unremarkable. NECK: Supple. Negative for carotid bruit, lymphadenopathy or thyromegaly. LUNGS: Clear to A and P. CARDIOVASCULAR: Regular rhythm, normal S1, S2. ABDOMEN: Soft. Bowel sounds positive. EXTREMITIES: Negative for cyanosis, clubbing, pitting edema. NEUROLOGICAL EXAM: Mental Status: The patient is alert, but disoriented to time and place. Speech is fluent. There is no language dysfunction. Memory, judgment, and abstracting thinking are fair. The patient denies hallucination or delusion. The patient is somewhat anxious and aggressive with paranoid mood. Cranial nerves are grossly intact. Motor examination reveals no focal muscle bulk was seen. There is no tremor noted during this interview. The tone is normal. Strength is 5/5 throughout. Sensory examination revealed normal pinprick, light touch, vibratory and position senses. Deep tendon reflexes were symmetric and active without pathologic responses. Gait and coordination are normal. LABORATORY DATA: From 02/03/2019 revealed white blood cells of 4400, hemoglobin 12.2, hematocrit 37, platelet count 189,000. Chemistry revealed sodium of 142, potassium 4.8, chloride 105, CO2 of 31, BUN 32, creatinine 1.2, glucose 95, calcium is 9.3. Liver enzymes are normal. Urinalysis is negative for urinary tract infections. Last Depakote level from 01/16/2019 was therapeutic at 57, otherwise unremarkable. IMPRESSION: 1. From neurologic standpoint, the patient has no obvious resting, postural or kinetic tremor. The tone is normal. The patient has intermittent tremor, probably due to anxiety. 2. Multiple medical problems include hypertension, hypothyroidism, pseudobulbar affect, insomnia, gastroesophageal reflux disease, benign prostatic hypertrophy. 3. Multiple psychiatric problems which include schizoaffective disorders, bipolar disorders, anxiety disorders and behavioral disturbances. 4. Anemia. RECOMMENDATIONS: 1. Continue with current medical and psychiatric care. 2. We will follow up for further evaluation as needed. M Win GREWAL MD DR: BECK/gage JOB#: [id number] / [id number]
--- NOTE | 2019-02-06 06:52 | PN ---
DATE: 02/05/2019 SUBJECTIVE: The patient was seen today, met with the staff, chart reviewed and also covering for Dr. Jordan. The patient's behavior has improved slightly. He is pleasant, able to interact with the staff. No inappropriate behaviors. The patient is also sleeping better. Appetite has improved. OBSERVATION: VITAL SIGNS: Temperature 98.1, blood pressure 133/81, pulse 94, respiration 18, O2 sat 96%. Slept about 6 hours last night. MEDICATIONS: The patient's current medications include Clozaril 25 mg at night and 25 mg in the morning, Risperdal 2 mg b.i.d., olanzapine 5 mg q. 2 hours p.r.n., Depakote 500 mg b.i.d., trazodone 50 mg at night and lorazepam 0.5 mg t.i.d. p.o. The patient is not having any side effects. LABORATORY DATA: The patient's lab reviewed. ASSESSMENT: 1. Schizoaffective disorder, bipolar type mixed with psychotic features. 2. Anxiety disorder, unspecified. PLAN: To continue with the treatment. LENGTH OF STAY: 5 days. LILLY PORTILLO MD DR: TUCKER/gage JOB#: [id number] / [id number]
[2019-02-06] MEDS: POLYETHYLENE GLYCOL 3350 17 GM PACKET. PO SCH (07:34)
[2019-02-06] MEDS: LACTULOSE 20 GM/30 ML SOLUTION. PO SCH ×2 (07:34→20:09)
[2019-02-06] MEDS: FAMOTIDINE 20 MG TABLET PO SCH ×2 (07:35→20:08)
[2019-02-06] MEDS: DEXTROMETHORPHAN/QUINIDINE 20/10MG CAPSULE. PO SCH ×2 (07:35→20:22)
[2019-02-06] MEDS: MULTIVITAMIN with MINERAL TABLET. PO SCH (07:35)
[2019-02-06] MEDS: DIVALPROEX 125 MG CAP.SPRINK PO SCH ×2 (07:35→20:09)
[2019-02-06] MEDS: risperiDONE 2 MG TABLET. PO SCH ×2 (07:35→20:09)
[2019-02-06] MEDS: cloZAPine 25 MG TABLET PO SCH ×2 (07:35→20:09)
[2019-02-06] MEDS: LORazepam 0.5 MG TABLET PO SCH ×3 (07:35→20:21)
[2019-02-06] MEDS: CHOLECALCIFEROL (VITAMIN D3) 50,000 UNIT CAPSULE PO SCH (08:13)
--- NOTE | 2019-02-06 10:52 | PN ---
DATE: 02/05/2019 ADDENDUM OBJECTIVE: GENERAL: Well-developed, well-nourished male, not in acute distress. VITAL SIGNS: Blood pressure 133/81, respiratory rate 18, pulse is 94 and regular, temperature 98.1, oxygen saturation 96% on room air. HEENT: Normocephalic, atraumatic, otherwise unremarkable. NECK: Supple. Negative for carotid bruit, lymphadenopathy, or thyromegaly. LUNGS: Clear to A and P. CARDIOVASCULAR: Regular rate and rhythm, normal S1, S2. There is no S3, S4, or murmur. ABDOMEN: Soft. Bowel sounds positive. EXTREMITIES: Negative for cyanosis, clubbing, or edema. NEUROLOGIC: Mental status: The patient is alert and oriented x 2. Speech is fluent. There is no language dysfunction. Memory, judgment, and abstract thinking are fair. The patient denies hallucination or delusion. Cranial nerves are intact. No focal motor or sensory deficit. Deep tendon reflexes were asymmetric and active without pathology responses. Gait and coordination are normal. IMPRESSION: 1. Intermittent tremor of the upper extremity, not present at this time with marked muscle tone. No facial muscle tone probably due to anxiety versus medication side effects. 2. Multiple medical problems include hypertension, hypothyroidism, insomnia, gastroesophageal reflux disease, and benign prostate hypertrophy. 3. Multiple psychiatric problems include schizoaffective disorders, bipolar disorder, anxiety disorders, behavior disturbances, inappropriate sexual behavior. RECOMMENDATIONS: Continue with current medical and psychiatric care including Nuedexta which affects the pseudobulbar affect. M Win GREWAL MD DR: BECK/gage JOB#: [id number] / [id number]
[2019-02-06] MEDS: DORZOLAMIDE/TIMOLOL 2%/0.5% OPHTH SOLUTION 10ML BOTTLE. OD SCH ×2 (13:12→20:22)
[2019-02-06 15:57] VITALS: BP 115/80
[2019-02-06] MEDS: TAMSULOSIN 0.4 MG CAP.ER.24H. PO SCH (20:08)
[2019-02-06] MEDS: traZODone 50 MG TABLET. PO SCH (20:08)
[2019-02-06] MEDS: SENNOSIDES/DOCUSATE 8.6/50MG TABLET. PO SCH (20:21)
[2019-02-06] MEDS: LATANOPROST 0.005% OPHTH SOLUTION 2.5ML BOTTLE. OD SCH (20:22)
--- NOTE | 2019-02-06 22:38 | PN ---
DATE: 02/06/2019 SUBJECTIVE: The patient was seen today, met with the staff, chart reviewed. The patient's behavior has improved. The patient is less anxious and tense, able to interact with the staff and residents and no major behavior problems. Still withdrawn, isolative. OBSERVATION: VITAL SIGNS: Temperature 97.5, blood pressure 105/70, pulse 82, respiration 18, O2 sat 96%. The patient's sleep has improved. Appetite is fair. The patient is currently on Clozaril 25 mg b.i.d., Risperdal 2 mg b.i.d., olanzapine 5 mg q.2 hours p.r.n., Depakote 500 mg b.i.d., trazodone 50 mg at night and lorazepam 0.5 mg t.i.d. p.o. The patient is not having any side effects. The patient's lab reviewed. ASSESSMENT: 1. Schizoaffective disorder, bipolar type, mixed with psychotic features. 2. Anxiety disorder, unspecified. PLAN: To continue with the treatment. LENGTH OF STAY: 5 days. LILLY PORTILLO MD DR: TUCKER/gage JOB#: [id number] / [id number]
[2019-02-07] MEDS: LEVOTHYROXINE 25 MCG TABLET. PO SCH (05:31)
[2019-02-07] MEDS: POLYVINYL ALCOHOL/POVIDONE/PF OPHTH SOLUTION DROPERETTE. OU PRN ×2 (05:31→08:06)
[2019-02-07 05:44] VITALS: BP 138/87
[2019-02-07] MEDS: POLYETHYLENE GLYCOL 3350 17 GM PACKET. PO SCH (08:05)
[2019-02-07] MEDS: LORazepam 0.5 MG TABLET PO SCH ×3 (08:05→19:40)
[2019-02-07] MEDS: DORZOLAMIDE/TIMOLOL 2%/0.5% OPHTH SOLUTION 10ML BOTTLE. OD SCH ×2 (08:05→19:42)
[2019-02-07] MEDS: DIVALPROEX 125 MG CAP.SPRINK PO SCH ×2 (08:05→19:41)
[2019-02-07] MEDS: LACTULOSE 20 GM/30 ML SOLUTION. PO SCH ×2 (08:05→19:40)
[2019-02-07] MEDS: DEXTROMETHORPHAN/QUINIDINE 20/10MG CAPSULE. PO SCH ×2 (08:05→19:40)
[2019-02-07] MEDS: FAMOTIDINE 20 MG TABLET PO SCH ×2 (08:06→19:40)
[2019-02-07] MEDS: MULTIVITAMIN with MINERAL TABLET. PO SCH (08:06)
[2019-02-07] MEDS: cloZAPine 25 MG TABLET PO SCH ×2 (08:06→19:40)
[2019-02-07] MEDS: risperiDONE 2 MG TABLET. PO SCH ×2 (08:06→19:40)
[2019-02-07 15:26] VITALS: BP 113/75
[2019-02-07] MEDS: traZODone 50 MG TABLET. PO SCH (19:40)
[2019-02-07] MEDS: TAMSULOSIN 0.4 MG CAP.ER.24H. PO SCH (19:41)
[2019-02-07] MEDS: LATANOPROST 0.005% OPHTH SOLUTION 2.5ML BOTTLE. OD SCH (19:42)
[2019-02-07] MEDS: SENNOSIDES/DOCUSATE 8.6/50MG TABLET. PO SCH (19:43)
--- NOTE | 2019-02-08 00:30 | PN ---
DATE: 02/07/2019 SUBJECTIVE: The patient was seen today, met with the staff, chart reviewed. Staff reports no major behavior problems. The patient is somewhat indifferent, tends to isolate himself, tends to pace. Overall, his behavior has improved. The patient is not having any sexual behaviors which are inappropriate. The patient has been compliant with the treatment taking his medications. OBSERVATION: VITAL SIGNS: Temperature 97.6, blood pressure 138/87, pulse 78, respiration 18, O2 sat 94%. Slept about 6-1/2 hours last night. The patient not exhibiting any overt psychotic symptoms, but still withdrawn, constricted affect, laughs inappropriately at times, walks slow, uses a walker. The patient denies of feeling depressed. The patient is currently not exhibiting any overt psychotic symptoms. CURRENT MEDICATIONS: The patient's current medications include Clozaril 25 mg b.i.d., Risperdal 2 mg b.i.d., olanzapine 5 mg q.2 hours p.r.n., Depakote 500 mg b.i.d., trazodone 50 mg at night and lorazepam 0.5 mg t.i.d. p.o. The patient is not having any side effects. The patient's lab reviewed. ASSESSMENT: 1. Schizoaffective disorder, bipolar type, mixed with psychotic features. 1. Anxiety disorder, unspecified. PLAN: To continue with the treatment. LENGTH OF STAY: 4-5 days. LILLY PORTILLO MD DR: TUCKER/gage JOB#: [id number] / [id number]
[2019-02-08 05:00] VITALS: BP 123/75
[2019-02-08] MEDS: LEVOTHYROXINE 25 MCG TABLET. PO SCH (06:00)
[2019-02-08] MEDS: risperiDONE 2 MG TABLET. PO SCH ×2 (08:41→19:59)
[2019-02-08] MEDS: cloZAPine 25 MG TABLET PO SCH ×2 (08:41→19:55)
[2019-02-08] MEDS: FAMOTIDINE 20 MG TABLET PO SCH ×2 (08:41→20:01)
[2019-02-08] MEDS: MULTIVITAMIN with MINERAL TABLET. PO SCH (08:41)
[2019-02-08] MEDS: DIVALPROEX 125 MG CAP.SPRINK PO SCH ×2 (08:41→19:59)
[2019-02-08] MEDS: POLYETHYLENE GLYCOL 3350 17 GM PACKET. PO SCH (08:42)
[2019-02-08] MEDS: LORazepam 0.5 MG TABLET PO SCH ×3 (08:43→20:45)
[2019-02-08] MEDS: DEXTROMETHORPHAN/QUINIDINE 20/10MG CAPSULE. PO SCH ×2 (09:00→20:01)
[2019-02-08] MEDS: DORZOLAMIDE/TIMOLOL 2%/0.5% OPHTH SOLUTION 10ML BOTTLE. OD SCH ×2 (09:00→20:02)
[2019-02-08] MEDS: LACTULOSE 20 GM/30 ML SOLUTION. PO SCH ×2 (09:00→20:01)
[2019-02-08 15:44] VITALS: BP 100/66
[2019-02-08] MEDS: traZODone 50 MG TABLET. PO SCH (19:56)
[2019-02-08] MEDS: TAMSULOSIN 0.4 MG CAP.ER.24H. PO SCH (19:59)
[2019-02-08] MEDS: SENNOSIDES/DOCUSATE 8.6/50MG TABLET. PO SCH (20:00)
[2019-02-08] MEDS: LATANOPROST 0.005% OPHTH SOLUTION 2.5ML BOTTLE. OD SCH (20:02)
[2019-02-09] MEDS: LEVOTHYROXINE 25 MCG TABLET. PO SCH (05:09)
[2019-02-09 05:49] VITALS: BP 159/82
[2019-02-09] MEDS: DEXTROMETHORPHAN/QUINIDINE 20/10MG CAPSULE. PO SCH ×2 (07:45→20:16)
[2019-02-09] MEDS: cloZAPine 25 MG TABLET PO SCH ×2 (07:45→20:13)
[2019-02-09] MEDS: DIVALPROEX 125 MG CAP.SPRINK PO SCH ×2 (07:45→20:14)
[2019-02-09] MEDS: LACTULOSE 20 GM/30 ML SOLUTION. PO SCH ×2 (07:45→20:15)
[2019-02-09] MEDS: MULTIVITAMIN with MINERAL TABLET. PO SCH (07:45)
[2019-02-09] MEDS: POLYETHYLENE GLYCOL 3350 17 GM PACKET. PO SCH (07:45)
[2019-02-09] MEDS: DORZOLAMIDE/TIMOLOL 2%/0.5% OPHTH SOLUTION 10ML BOTTLE. OD SCH ×2 (07:45→20:16)
[2019-02-09] MEDS: FAMOTIDINE 20 MG TABLET PO SCH ×2 (07:45→20:14)
[2019-02-09] MEDS: risperiDONE 2 MG TABLET. PO SCH ×2 (07:45→20:14)
[2019-02-09] MEDS: LORazepam 0.5 MG TABLET PO SCH ×3 (07:48→20:12)
[2019-02-09 15:37] VITALS: BP 97/64
[2019-02-09] MEDS: TAMSULOSIN 0.4 MG CAP.ER.24H. PO SCH (20:14)
[2019-02-09] MEDS: SENNOSIDES/DOCUSATE 8.6/50MG TABLET. PO SCH (20:15)
[2019-02-09] MEDS: traZODone 50 MG TABLET. PO SCH (20:15)
[2019-02-09] MEDS: LATANOPROST 0.005% OPHTH SOLUTION 2.5ML BOTTLE. OD SCH (20:17)
--- NOTE | 2019-02-10 00:59 | PN ---
DATE: 02/09/2019 SUBJECTIVE: The patient was seen today, met with the staff, chart reviewed. The patient continues to exhibiting behavior problems. Staff reports he has been lying on the floor, not wanting to get up and also not responding to the staff intentionally. The patient also reported that there are days he hops like a frog on the floor, making all kind of sounds. The patient apparently exhibiting bizarre behaviors. The patient is currently refusing to talk. The patient is not having any side effects to the medications. The patient has not exhibited any sexual inappropriate behaviors. OBSERVATION: VITAL SIGNS: Temperature 98.2, blood pressure 159/82, pulse 68, respirations 20, O2 sat 94%. Slept about 7-1/2 hours last night. LABORATORY DATA: The patient's lab reviewed. MEDICATIONS: The patient's current medications include Clozaril 25 mg b.i.d., Risperdal 2 mg b.i.d., olanzapine 5 mg q. 2 hours p.r.n., Depakote 500 mg b.i.d., trazodone 50 mg at night and lorazepam 0.5 mg t.i.d. p.o. The patient denies of any side effects. Staff has not observed any major problems with the medications. DIAGNOSES: 1. Schizoaffective disorder, bipolar type, mixed with psychotic features. 2. Anxiety disorder, unspecified. PLAN: To continue with the treatment. Length of stay 4-5 days. LILLY PORTILLO MD DR: TUCKER/gage JOB#: [id number] / [id number]
[2019-02-10] MEDS: LEVOTHYROXINE 25 MCG TABLET. PO SCH (05:37)
[2019-02-10 05:46] VITALS: BP 124/77
[2019-02-10 08:04] LABS: BASO % 1 % (0-3); EOS # 0.2 x10^3/uL (0.0-0.7); EOS % 3 % (0-3); HEMATOCRIT 39.3 % (39.0-53.0); LYMPH # 1.3 x10^3/uL (1.0-4.8); LYMPH % 24 % (24-48); MEAN CORPUSCULAR HEMOGLOBIN 29 pg (25-35); MEAN CORPUSCULAR HGB CONC 33 g/dL (31-37); MEAN CORPUSCULAR VOLUME 88 fL (79-100); MONO # 0.9 x10^3/uL (0.0-1.1); MONO % 16 % (0-9); NEUT # 3.2 x10^3uL (1.8-7.7); NEUT % 57 % (31-73); PLATELET COUNT 199 x10^3/uL (140-400); RED BLOOD COUNT 4.49 x10^6/uL (4.30-5.70); RED CELL DISTRIBUTION WIDTH 14.1 % (11.5-14.5); WHITE BLOOD COUNT 5.7 x10^3/uL (4.0-11.0)
[2019-02-10 08:23] LABS: ALBUMIN 3.1 g/dL (3.4-5.0); ALBUMIN/GLOBULIN RATIO 0.8 (1.0-1.7); CALCIUM 8.9 mg/dL (8.5-10.1); CREATININE 1.1 mg/dL (0.7-1.3); GFR 67.2; POTASSIUM 4.5 mmol/L (3.5-5.1); TOTAL BILIRUBIN 0.3 mg/dL (0.2-1.0); TOTAL PROTEIN 6.9 g/dL (6.4-8.2)
[2019-02-10] MEDS: LORazepam 0.5 MG TABLET PO SCH ×3 (08:24→19:54)
[2019-02-10] MEDS: FAMOTIDINE 20 MG TABLET PO SCH ×2 (08:24→19:56)
[2019-02-10] MEDS: MULTIVITAMIN with MINERAL TABLET. PO SCH (08:24)
[2019-02-10] MEDS: cloZAPine 25 MG TABLET PO SCH ×2 (08:24→19:55)
[2019-02-10] MEDS: LACTULOSE 20 GM/30 ML SOLUTION. PO SCH ×2 (08:25→19:56)
[2019-02-10] MEDS: DIVALPROEX 125 MG CAP.SPRINK PO SCH ×2 (08:25→19:56)
[2019-02-10] MEDS: DORZOLAMIDE/TIMOLOL 2%/0.5% OPHTH SOLUTION 10ML BOTTLE. OD SCH ×2 (08:25→19:59)
[2019-02-10] MEDS: DEXTROMETHORPHAN/QUINIDINE 20/10MG CAPSULE. PO SCH ×2 (08:25→19:58)
[2019-02-10] MEDS: risperiDONE 2 MG TABLET. PO SCH ×2 (08:25→19:57)
[2019-02-10] MEDS: POLYETHYLENE GLYCOL 3350 17 GM PACKET. PO SCH (08:25)
--- NOTE | 2019-02-10 09:31 | PN ---
DATE: 02/08/2019 SUBJECTIVE: The patient was seen today, met with the staff, chart reviewed. The patient still withdrawn, anxious, paranoid, intrusive behaviors, not exhibited any sexual behaviors today. The patient has been compliant with the treatment. OBSERVATION: VITAL SIGNS: Temperature 98.3, blood pressure 123/75, pulse 64, respirations 18, O2 sat 96%. GENERAL: Slept about 6 hours last night. The patient's appetite is fair. MEDICATIONS: The patient's current medications include Clozaril 25 mg b.i.d., Risperdal 2 mg b.i.d., olanzapine 5 mg q. 2 hours p.r.n., Depakote 500 mg b.i.d., trazodone 50 mg at night, and lorazepam 0.5 mg t.i.d. The patient denies of having any side effects except he has a short step gait, has some fine tremors of both hands. ASSESSMENT: 1. Schizoaffective disorder, bipolar type, mixed with psychotic features. 2. Anxiety disorder, unspecified. PLAN: To continue with the treatment. Length of stay, 4-5 days. LILLY PORTILLO MD DR: TUCKER/gage JOB#: [id number] / [id number]
[2019-02-10 16:10] VITALS: BP 100/65
[2019-02-10] MEDS: TAMSULOSIN 0.4 MG CAP.ER.24H. PO SCH (19:56)
[2019-02-10] MEDS: traZODone 50 MG TABLET. PO SCH (19:56)
[2019-02-10] MEDS: SENNOSIDES/DOCUSATE 8.6/50MG TABLET. PO SCH (19:57)
[2019-02-10] MEDS: LATANOPROST 0.005% OPHTH SOLUTION 2.5ML BOTTLE. OD SCH (19:58)
--- NOTE | 2019-02-10 22:38 | PDOC ---
Exam Note: Adrián Note: Please also refer to the separate dictated note~for this date of service dictated separately.~Patient seen individually. Discussed the patient with Nursing staff reviewed the chart.~Reviewed interim history and current functioning. Reviewed vital signs,~Labs/ Radiology~and current medications noted below. Continue current treatment with the changes noted in the dictated addendum note Assessment: Vital Signs: Vital Signs Date Time Temp Pulse Resp B/P (MAP) Pulse Ox O2 Delivery O2 Flow Rate FiO2 02/10/19 16:10 98.5 78 18 100/65 (77) 96 02/08/19 15:44 Room Air I&O Intake and Output 02/10/19 06:59 Intake Total 1200 ml Balance 1200 ml Intake Oral 1200 ml # Voids 1 Labs: Laboratory Tests Test 02/10/19 07:31 White Blood Count 5.7 x10^3/uL (4.0-11.0) Red Blood Count 4.49 x10^6/uL (4.30-5.70) Hemoglobin 13.0 g/dL (13.0-17.5) Hematocrit 39.3 % (39.0-53.0) Mean Corpuscular Volume 88 fL (79-100) Mean Corpuscular Hemoglobin 29 pg (25-35) Mean Corpuscular Hemoglobin Concent 33 g/dL (31-37) Red Cell Distribution Width 14.1 % (11.5-14.5) Platelet Count 199 x10^3/uL (140-400) Neutrophils (%) (Auto) 57 % (31-73) Lymphocytes (%) (Auto) 24 % (24-48) Monocytes (%) (Auto) 16 % (0-9) H Eosinophils (%) (Auto) 3 % (0-3) Basophils (%) (Auto) 1 % (0-3) Neutrophils # (Auto) 3.2 x10^3uL (1.8-7.7) Lymphocytes # (Auto) 1.3 x10^3/uL (1.0-4.8) Monocytes # (Auto) 0.9 x10^3/uL (0.0-1.1) Eosinophils # (Auto) 0.2 x10^3/uL (0.0-0.7) Basophils # (Auto) 0.0 x10^3/uL (0.0-0.2) Sodium Level 144 mmol/L (136-145) Potassium Level 4.5 mmol/L (3.5-5.1) Chloride Level 106 mmol/L (98-107) Carbon Dioxide Level 32 mmol/L (21-32) Anion Gap 6 (6-14) Blood Urea Nitrogen 24 mg/dL (8-26) Creatinine 1.1 mg/dL (0.7-1.3) Estimated GFR (Cockcroft-Gault) 67.2 BUN/Creatinine Ratio 22 (6-20) H Glucose Level 82 mg/dL (70-99) Calcium Level 8.9 mg/dL (8.5-10.1) Total Bilirubin 0.3 mg/dL (0.2-1.0) Aspartate Amino Transferase (AST) 26 U/L (15-37) Alanine Aminotransferase (ALT) 23 U/L (16-63) Alkaline Phosphatase 57 U/L (46-116) Total Protein 6.9 g/dL (6.4-8.2) Albumin 3.1 g/dL (3.4-5.0) L Albumin/Globulin Ratio 0.8 (1.0-1.7) L Current Medications: Meds: Current Medications Acetaminophen (Tylenol) 650 mg PRN Q4HRS PRN PO FEVER; Start 01/08/19 at 21:30; Stop 01/09/19 at 21:29; Status Cancel Acetaminophen (Tylenol) 650 mg PRN Q6HRS PRN PO PAIN / TEMP; Start 01/09/19 at 00:30; Status Cancel Multi-Ingredient Ointment (Analgesic [place]) 1 she PRN QID PRN TP MUSCLE PAIN; Start 01/09/19 at 00:30 Al Hydroxide/Mg Hydroxide (Mylanta Plus Xs) 15 ml PRN AFTMEALHC PRN PO DYSPEPSIA; Start 01/09/19 at 00:30 Magnesium Hydroxide (Milk Of Magnesia) 2,400 mg PRN QHS PRN PO CONSTIPATION; Start 01/09/19 at 00:30 Divalproex Sodium (Depakote Sprinkles) 125 mg BID PO Last administered on 01/10/19at 07:52; Start 01/09/19 at 09:00; Stop 01/10/19 at 17:11; Status DC Estradiol (Estrace) 0.5 mg DAILY PO Last administered on 4/4/19at 08:20; Start 01/09/19 at 09:00; Stop 01/23/19 at 09:55; Status DC Haloperidol Lactate (Haldol) 5 mg PRN DAILY PRN IM ANXIETY / AGITATION; Start 01/09/19 at 02:15; Stop 01/12/19 at 16:48; Status DC Lorazepam (Ativan) 0.5 mg PRN DAILY PRN PO ANXIETY; Start 01/09/19 at 02:15 Lorazepam (Ativan) 0.5 mg TID PO Last administered on 02/10/19 19:54; Start 01/09/19 at 09:00 Risperidone (RisperDAL) 2 mg BID PO Last administered on 01/17/19 07:55; Start 01/09/19 at 09:00; Stop 01/17/19 at 16:41; Status DC Acetaminophen (Tylenol) 650 mg PRN Q6HRS PRN PO PAIN / TEMP; Start 01/09/19 at 02:15 Vitamin D (Vitamin D3) 50,000 unit WEEKLY PO Last administered on 02/06/19 08:13; Start 01/09/19 at 09:00 Dextromethorphan/ Quinidine (Nuedexta 20-10 Mg Capsule) 1 cap BID PO Last administered on 02/10/19 19:58; Start 01/09/19 at 09:00 Senna/Docusate Sodium (Senna Plus) 1 tab HS PO Last administered on 02/10/19 19:57; Start 01/09/19 at 21:00 Tamsulosin HCl (Flomax) 0.4 mg HS PO Last administered on 02/10/19 19:56; Start 01/09/19 at 21:00 Acetaminophen/ Codeine Phosphate (Tylenol #3) 1 tab PRN Q4HRS PRN PO PAIN; Start 01/09/19 at 02:15 Acetaminophen/ Codeine Phosphate (Tylenol #3) 2 tab PRN Q4HRS PRN PO PAIN; Start 01/09/19 at 02:15 Non-Formulary Medication (Amino Acids/ Protein Hydrolys (Pro-Stat Awc Liquid Packet)) 30 ml DAILY PO ; Start 01/09/19 at 09:00; Status UNV Non-Formulary Medication (Carboxymethylcellulos/ Glycerin (Refresh Optive Eye Drops)) 1 drop HS OD ; Start 01/09/19 at 21:00; Stop 01/09/19 at 21:00; Status DC Artificial Tears (Refresh Classic) 1 drop QID OU ; Start 01/09/19 at 09:00; Stop 01/09/19 at 09:00; Status DC Dorzolamide/ Timolol (Cosopt) 1 drop BID OD Last administered on 02/10/19 19:59; Start 01/09/19 at 09:00 Lactulose (Lactulose) 20 gm BID PO Last administered on 02/10/19 19:56; Start 01/09/19 at 09:00 Latanoprost (Xalatan) 1 drop QHS OD Last administered on 01/24/19 20:03; Start 01/09/19 at 21:00; Stop 01/25/19 at 16:10; Status DC Levothyroxine Sodium (Synthroid) 25 mcg DAILY06 PO Last administered on 02/10/19 05:37; Start 01/09/19 at 06:00 Multivitamins/ Calcium (Thera-M Plus) 1 tab DAILY PO Last administered on 02/10/19 08:24; Start 01/09/19 at 09:00 Polyethylene Glycol (miraLAX) 17 gm DAILY PO Last administered on 02/10/19 08:25; Start 01/09/19 at 09:00 Famotidine (Pepcid) 20 mg BID PO Last administered on 02/10/19 19:56; Start 01/09/19 at 09:00 Erythromycin (Romycin) 1 inch DAILY OS Last administered on 01/10/19 07:53; Start 01/09/19 at 09:00; Stop 01/10/19 at 10:32; Status DC Divalproex Sodium (Depakote Sprinkles) 250 mg BID PO Last administered on 01/13/19 07:41; Start 01/10/19 at 21:00; Stop 01/13/19 at 18:48; Status DC Trazodone HCl (Desyrel) 50 mg QHS PO Last administered on 02/10/19 19:56; Start 01/10/19 at 21:00 Trazodone HCl (Desyrel) 50 mg PRN QHS PRN PO INSOMNIA; Start 01/10/19 at 17:15 Divalproex Sodium (Depakote Sprinkles) 500 mg BID PO Last administered on 02/10/19 19:56; Start 01/13/19 at 21:00 Risperidone (RisperDAL) 1.5 mg DAILY PO Last administered on 01/19/19 07:36; Start 01/18/19 at 09:00; Stop 01/20/19 at 08:59; Status DC Risperidone (RisperDAL) 2 mg QHS PO Last administered on 01/19/19 21:14; Start 01/17/19 at 21:00; Stop 01/20/19 at 20:59; Status DC Risperidone (RisperDAL) 1.5 mg BID PO Last administered on 01/25/19 08:23; Sta rt 01/20/19 at 09:00; Stop 01/25/19 at 12:04; Status DC Medroxyprogesterone Acetate (Provera) 2.5 mg DAILY PO Last administered on 02/10/19 08:25; Start 01/24/19 at 09:00; Stop 02/10/19 at 20:37; Status DC Risperidone (RisperDAL) 2 mg BID PO Last administered on 02/10/19 19:57; Start 01/25/19 at 21:00 Olanzapine (ZyPREXA ZYDIS) 5 mg PRN Q2HR PRN PO PSYCHOSIS Last administered on 02/04/19 16:56; Start 01/25/19 at 12:00 Latanoprost (Xalatan) 1 drop QHS OD Last administered on 02/10/19 19:58; Start 01/25/19 at 16:10 Clozapine (Clozaril) 25 mg HS PO Last administered on 02/01/19 20:08; Start 01/27/19 at 21:00; Stop 02/02/19 at 13:26; Status DC Clozapine (Clozaril) 50 mg BID PO Last administered on 02/10/19 08:24; Start 02/02/19 at 21:00; Stop 02/10/19 at 19:29; Status DC Artificial Tears (Refresh Classic) 1 drop QIDPRN PRN OU DRY EYE Last administered on 02/07/19 05:31; Start 02/06/19 at 21:00 Clozapine (Clozaril) 50 mg DAILY PO ; Start 02/11/19 at 09:00 Clozapine (Clozaril) 75 mg HS PO Last administered on 02/10/19at 19:55; Start 02/10/19 at 21:00 Medroxyprogesterone Acetate (Provera) 5 mg DAILY PO ; Start 02/11/19 at 09:00 Active Scripts Active Reported Ranitidine Hcl 150 Mg Tablet 150 Mg PO BID Tylenol (Acetaminophen) 325 Mg Tablet 650 Mg PO PRN Q6HRS Flomax (Tamsulosin Hcl) 0.4 Mg Cap.er.24h 0.4 Mg PO HS Senna Plus Tablet (Sennosides/Docusate Sodium) 1 Each Tablet 1 Each PO HS Risperidone 2 Mg Tablet 2 Mg PO BID Refresh Optive Eye Drops (Carboxymethylcellulos/Glycerin) 15 Ml Drops 1 Drop OU QID Refresh Optive Eye Drops (Carboxymethylcellulos/Glycerin) 15 Ml Drops 1 Drop OD HS Pro-Stat Awc Liquid Packet (Amino Acids/Protein Hydrolys) 30 Ml Liquid.pkt 30 Ml PO DAILY Miralax (Polyethylene Glycol 3350) 17 Gm Powd.pack 17 Gm PO DAILY Nuedexta 20-10 Mg Capsule (Dextromethorphan Hbr/Quinidine) 1 Each Capsule 1 Each PO BID Multivitamins (Multivitamin) 1 Each Tablet 1 Each PO DAILY Levothyroxine Sodium 25 Mcg Tablet 25 Mcg PO DAILYAC Latanoprost 2.5 Ml Drops 1 Drop OD QHS Lactulose 10 Gm/15 Ml Solution 20 Gm PO BID Haloperidol Lactate 5 Mg/1 Ml Vial 5 Mg IM PRN DAILY PRN Estradiol 0.5 Mg Tablet 0.5 Mg PO DAILY Erythromycin (Erythromycin Base) 1 Gm Oint...g. 1 She OS BID Dorzolamide-Timolol Eye Drops (Dorzolamide Hcl/Timolol Maleat) 10 Ml Drops 1 Drop OD BID Depakote (Divalproex Sodium) 500 Mg Tablet.dr 125 Mg PO BID D3-50 (Cholecalciferol (Vitamin D3)) 50,000 Unit Capsule 50,000 Unit PO WEEKLY SUNDAY Lorazepam 0.5 Mg Tablet 0.5 Mg PO PRN DAILY PRN Lorazepam 0.5 Mg Tablet 0.5 Mg PO TID Tylenol With Codeine #3 Tablet (Acetaminophen With Codeine) 1 Each Tablet 2 Each PO PRN Q4HRS PRN Tylenol With Codeine #3 Tablet (Acetaminophen With Codeine) 1 Each Tablet 1 Each PO PRN Q4HRS PRN I have reviewed the current psychotropics carefully including drug interactions. Risk benefit ratio favors no change other than as noted in my dictated progress note. Diagnosis: Problems: (1) Medical clearance for psychiatric admission (2) Anxiety disorder (3) Major depressive disorder, recurrent episode (4) Impulse control disorder (5) Schizoaffective disorder, chronic condition with acute exacerbation (6) Mild cognitive disorder LEENA CHINCHILLA MD Feb 10, 2019 22:38
[2019-02-11] MEDS: LEVOTHYROXINE 25 MCG TABLET. PO SCH (04:01)
[2019-02-11 04:44] VITALS: BP 115/72
[2019-02-11] MEDS: LACTULOSE 20 GM/30 ML SOLUTION. PO SCH ×2 (08:21→20:32)
[2019-02-11] MEDS: MULTIVITAMIN with MINERAL TABLET. PO SCH (08:21)
[2019-02-11] MEDS: DORZOLAMIDE/TIMOLOL 2%/0.5% OPHTH SOLUTION 10ML BOTTLE. OD SCH ×2 (08:21→20:34)
[2019-02-11] MEDS: risperiDONE 2 MG TABLET. PO SCH ×2 (08:21→20:33)
[2019-02-11] MEDS: FAMOTIDINE 20 MG TABLET PO SCH ×2 (08:22→20:33)
[2019-02-11] MEDS: DIVALPROEX 125 MG CAP.SPRINK PO SCH ×2 (08:22→20:32)
[2019-02-11] MEDS: POLYETHYLENE GLYCOL 3350 17 GM PACKET. PO SCH (08:22)
[2019-02-11] MEDS: LORazepam 0.5 MG TABLET PO SCH ×3 (08:24→20:35)
[2019-02-11] MEDS: medroxyPROGESTERone 5 MG TABLET PO SCH (08:25)
[2019-02-11] MEDS: cloZAPine 25 MG TABLET PO SCH ×2 (08:25→20:33)
[2019-02-11] MEDS: DEXTROMETHORPHAN/QUINIDINE 20/10MG CAPSULE. PO SCH ×2 (08:25→20:35)
[2019-02-11 16:17] VITALS: BP 101/70
[2019-02-11] MEDS: TAMSULOSIN 0.4 MG CAP.ER.24H. PO SCH (20:32)
[2019-02-11] MEDS: SENNOSIDES/DOCUSATE 8.6/50MG TABLET. PO SCH (20:33)
[2019-02-11] MEDS: traZODone 50 MG TABLET. PO SCH (20:33)
[2019-02-11] MEDS: LATANOPROST 0.005% OPHTH SOLUTION 2.5ML BOTTLE. OD SCH (20:35)
--- NOTE | 2019-02-11 21:17 | PN ---
DATE: 02/10/2019 PSYCHIATRIC PROGRESS NOTE This late entry 02/10/2019 covers elements not covered in my initial note. SUBJECTIVE: I met with the patient in the evening. Reviewed information from Dr. Francis who had covered for me for the past several days. Per nursing report, the patient slept 5-1/2 hours previous night. Previous night he was crawling on the floor, making random bizarre hand movements on the wall as if he was psychotic, possibly hallucinating, making it appear like he was masturbating with the pool noodle in the exercise group. Absolute neutrophil count 02/10/2019 is 3249 and we are going to increase the Clozaril from 50 b.i.d. to 50 in the morning and 75 at night. REVIEW OF SYSTEMS: No CV, , pulmonary, eye system symptoms on review. Gait somewhat slow. MENTAL STATUS EXAM: Oriented to himself and situation. Speech moderate latency, often responses monosyllabic, low in volume. Abstraction fair, computation impaired, language function intact. Mood and affect somewhat withdrawn. LABORATORY DATA: Reviewed. IMPRESSION: Unchanged from initial note. PLAN: Increase the Clozaril as above. Later at night, nursing staff had called me family were wondering if the Provera could be increased because of his sexually inappropriate behaviors. We will go ahead and increase this from 2.5 mg a day to 5 mg a day. MAN Bessy CHINCHILLA MD DR: MARY/gage JOB#: [id number] / [id number]
--- NOTE | 2019-02-11 22:39 | PDOC ---
Exam Note: Adrián Note: Please also refer to the separate dictated note~for this date of service dictated separately.~Patient seen individually. Discussed the patient with Nursing staff reviewed the chart.~Reviewed interim history and current functioning. Reviewed vital signs,~Labs/ Radiology~and current medications noted below. Continue current treatment with the changes noted in the dictated addendum note Assessment: Vital Signs: Vital Signs Date Time Temp Pulse Resp B/P (MAP) Pulse Ox O2 Delivery O2 Flow Rate FiO2 02/11/19 16:17 97.6 84 20 101/70 (80) 92 02/11/19 04:44 Room Air I&O Intake and Output 02/11/19 07:00 Intake Total 840 ml Balance 840 ml Intake Oral 840 ml Current Medications: Meds: Current Medications Acetaminophen (Tylenol) 650 mg PRN Q4HRS PRN PO FEVER; Start 01/08/19 at 21:30; Stop 01/09/19 at 21:29; Status Cancel Acetaminophen (Tylenol) 650 mg PRN Q6HRS PRN PO PAIN / TEMP; Start 01/09/19 at 00:30; Status Cancel Multi-Ingredient Ointment (Analgesic [place]) 1 she PRN QID PRN TP MUSCLE PAIN; Start 01/09/19 at 00:30 Al Hydroxide/Mg Hydroxide (Mylanta Plus Xs) 15 ml PRN AFTMEALHC PRN PO DYSPEPSIA; Start 01/09/19 at 00:30 Magnesium Hydroxide (Milk Of Magnesia) 2,400 mg PRN QHS PRN PO CONSTIPATION; Start 01/09/19 at 00:30 Divalproex Sodium (Depakote Sprinkles) 125 mg BID PO Last administered on 01/10/19at 07:52; Start 01/09/19 at 09:00; Stop 01/10/19 at 17:11; Status DC Estradiol (Estrace) 0.5 mg DAILY PO Last administered on 01/23/19at 08:20; Start 01/09/19 at 09:00; Stop 01/23/19 at 09:55; Status DC Haloperidol Lactate (Haldol) 5 mg PRN DAILY PRN IM ANXIETY / AGITATION; Start 01/09/19 at 02:15; Stop 01/12/19 at 16:48; Status DC Lorazepam (Ativan) 0.5 mg PRN DAILY PRN PO ANXIETY; Start 01/09/19 at 02:15 Lorazepam (Ativan) 0.5 mg TID PO Last administered on 02/11/19 20:35; Start 01/09/19 at 09:00 Risperidone (RisperDAL) 2 mg BID PO Last administered on 01/17/19 07:55; Start 01/09/19 at 09:00; Stop 01/17/19 at 16:41; Status DC Acetaminophen (Tylenol) 650 mg PRN Q6HRS PRN PO PAIN / TEMP; Start 01/09/19 at 02:15 Vitamin D (Vitamin D3) 50,000 unit WEEKLY PO Last administered on 02/06/19 08:13; Start 01/09/19 at 09:00 Dextromethorphan/ Quinidine (Nuedexta 20-10 Mg Capsule) 1 cap BID PO Last administered on 02/11/19 20:35; Start 01/09/19 at 09:00 Senna/Docusate Sodium (Senna Plus) 1 tab HS PO Last administered on 02/11/19 20:33; Start 01/09/19 at 21:00 Tamsulosin HCl (Flomax) 0.4 mg HS PO Last administered on 02/11/19 20:32; Start 01/09/19 at 21:00 Acetaminophen/ Codeine Phosphate (Tylenol #3) 1 tab PRN Q4HRS PRN PO PAIN; Start 01/09/19 at 02:15 Acetaminophen/ Codeine Phosphate (Tylenol #3) 2 tab PRN Q4HRS PRN PO PAIN; Start 01/09/19 at 02:15 Non-Formulary Medication (Amino Acids/ Protein Hydrolys (Pro-Stat Awc Liquid Packet)) 30 ml DAILY PO ; Start 01/09/19 at 09:00; Status UNV Non-Formulary Medication (Carboxymethylcellulos/ Glycerin (Refresh Optive Eye Drops)) 1 drop HS OD ; Start 01/09/19 at 21:00; Stop 01/09/19 at 21:00; Status DC Artificial Tears (Refresh Classic) 1 drop QID OU ; Start 01/09/19 at 09:00; Stop 01/09/19 at 09:00; Status DC Dorzolamide/ Timolol (Cosopt) 1 drop BID OD Last administered on 02/11/19 20:34; Start 01/09/19 at 09:00 Lactulose (Lactulose) 20 gm BID PO Last administered on 02/11/19 20:32; Start 01/09/19 at 09:00 Latanoprost (Xalatan) 1 drop QHS OD Last administered on 01/24/19 20:03; Start 01/09/19 at 21:00; Stop 01/25/19 at 16:10; Status DC Levothyroxine Sodium (Synthroid) 25 mcg DAILY06 PO Last administered on 02/11/19 04:01; Start 01/09/19 at 06:00 Multivitamins/ Calcium (Thera-M Plus) 1 tab DAILY PO Last administered on 02/11/19 08:21; Start 01/09/19 at 09:00 Polyethylene Glycol (miraLAX) 17 gm DAILY PO Last administered on 02/11/19 08:22; Start 01/09/19 at 09:00 Famotidine (Pepcid) 20 mg BID PO Last administered on 02/11/19 20:33; Start 01/09/19 at 09:00 Erythromycin (Romycin) 1 inch DAILY OS Last administered on 01/10/19 07:53; Start 01/09/19 at 09:00; Stop 01/10/19 at 10:32; Status DC Divalproex Sodium (Depakote Sprinkles) 250 mg BID PO Last administered on 01/13/19 07:41; Start 01/10/19 at 21:00; Stop 01/13/19 at 18:48; Status DC Trazodone HCl (Desyrel) 50 mg QHS PO Last administered on 02/11/19 20:33; Start 01/10/19 at 21:00 Trazodone HCl (Desyrel) 50 mg PRN QHS PRN PO INSOMNIA; Start 01/10/19 at 17:15 Divalproex Sodium (Depakote Sprinkles) 500 mg BID PO Last administered on 02/11/19 20:32; Start 01/13/19 at 21:00 Risperidone (RisperDAL) 1.5 mg DAILY PO Last administered on 01/19/19 07:36; Start 01/18/19 at 09:00; Stop 01/20/19 at 08:59; Status DC Risperidone (RisperDAL) 2 mg QHS PO Last administered on 01/19/19 21:14; Start 01/17/19 at 21:00; Stop 01/20/19 at 20:59; Status DC Risperidone (RisperDAL) 1.5 mg BID PO Last administered on 01/25/19 08:23; Start 01/20/19 at 09:00; Stop 01/25/19 at 12:04; Status DC Medroxyprogesterone Acetate (Provera) 2.5 mg DAILY PO Last administered on 02/10/19 08:25; Start 01/24/19 at 09:00; Stop 02/10/19 at 20:37; Status DC Risperidone (RisperDAL) 2 mg BID PO Last administered on 02/11/19 20:33; Start 01/25/19 at 21:00 Olanzapine (ZyPREXA ZYDIS) 5 mg PRN Q2HR PRN PO PSYCHOSIS Last administered on 02/04/19 16:56; Start 01/25/19 at 12:00 Latanoprost (Xalatan) 1 drop QHS OD Last administered on 02/11/19 20:35; Start 01/25/19 at 16:10 Clozapine (Clozaril) 25 mg HS PO Last administered on 02/01/19 20:08; Start 01/27/19 at 21:00; Stop 02/02/19 at 13:26; Status DC Clozapine (Clozaril) 50 mg BID PO Last administered on 02/10/19 08:24; Start 02/02/19 at 21:00; Stop 02/10/19 at 19:29; Status DC Artificial Tears (Refresh Classic) 1 drop QIDPRN PRN OU DRY EYE Last administered on 02/07/19 05:31; Start 02/06/19 at 21:00 Clozapine (Clozaril) 50 mg DAILY PO Last administered on 02/11/19 08:25; Start 02/11/19 at 09:00 Clozapine (Clozaril) 75 mg HS PO Last administered on 02/11/19 20:33; Start 02/10/19 at 21:00 Medroxyprogesterone Acetate (Provera) 5 mg DAILY PO Last administered on 4/23/19at 08:25; Start 02/11/19 at 09:00 Medroxyprogesterone Acetate (Provera) 2.5 mg 1X ONCE PO Last administered on 02/11/19at 03:05; Start 02/11/19 at 03:00; Stop 02/11/19 at 03:54; Status DC Active Scripts Active Reported Ranitidine Hcl 150 Mg Tablet 150 Mg PO BID Tylenol (Acetaminophen) 325 Mg Tablet 650 Mg PO PRN Q6HRS Flomax (Tamsulosin Hcl) 0.4 Mg Cap.er.24h 0.4 Mg PO HS Senna Plus Tablet (Sennosides/Docusate Sodium) 1 Each Tablet 1 Each PO HS Risperidone 2 Mg Tablet 2 Mg PO BID Refresh Optive Eye Drops (Carboxymethylcellulos/Glycerin) 15 Ml Drops 1 Drop OU QID Refresh Optive Eye Drops (Carboxymethylcellulos/Glycerin) 15 Ml Drops 1 Drop OD HS Pro-Stat Awc Liquid Packet (Amino Acids/Protein Hydrolys) 30 Ml Liquid.pkt 30 Ml PO DAILY Miralax (Polyethylene Glycol 3350) 17 Gm Powd.pack 17 Gm PO DAILY Nuedexta 20-10 Mg Capsule (Dextromethorphan Hbr/Quinidine) 1 Each Capsule 1 Each PO BID Multivitamins (Multivitamin) 1 Each Tablet 1 Each PO DAILY Levothyroxine Sodium 25 Mcg Tablet 25 Mcg PO DAILYAC Latanoprost 2.5 Ml Drops 1 Drop OD QHS Lactulose 10 Gm/15 Ml Solution 20 Gm PO BID Haloperidol Lactate 5 Mg/1 Ml Vial 5 Mg IM PRN DAILY PRN Estradiol 0.5 Mg Tablet 0.5 Mg PO DAILY Erythromycin (Erythromycin Base) 1 Gm Oint...g. 1 She OS BID Dorzolamide-Timolol Eye Drops (Dorzolamide Hcl/Timolol Maleat) 10 Ml Drops 1 Drop OD BID Depakote (Divalproex Sodium) 500 Mg Tablet.dr 125 Mg PO BID D3-50 (Cholecalciferol (Vitamin D3)) 50,000 Unit Capsule 50,000 Unit PO WEEKLY SUNDAY Lorazepam 0.5 Mg Tablet 0.5 Mg PO PRN DAILY PRN Lorazepam 0.5 Mg Tablet 0.5 Mg PO TID Tylenol With Codeine #3 Tablet (Acetaminophen With Codeine) 1 Each Tablet 2 Each PO PRN Q4HRS PRN Tylenol With Codeine #3 Tablet (Acetaminophen With Codeine) 1 Each Tablet 1 Each PO PRN Q4HRS PRN I have reviewed the current psychotropics carefully including drug interactions. Risk benefit ratio favors no change other than as noted in my dictated progress note. Diagnosis: Problems: (1) Medical clearance for psychiatric admission (2) Anxiety disorder (3) Major depressive disorder, recurrent episode (4) Impulse control disorder (5) Schizoaffective disorder, chronic condition with acute exacerbation (6) Mild cognitive disorder LEENA CHINCHILLA MD Feb 11, 2019 22:39
[2019-02-12] MEDS ORDERED: MAG30ORA2 PO (03:30)
[2019-02-12] MEDS ORDERED: MAGN400O7 PO (03:36)
[2019-02-12] MEDS ORDERED: METH29OI TP (03:37)
[2019-02-12] MEDS ORDERED: OLAN5TAB5 PO (03:40)
[2019-02-12] MEDS ORDERED: CLOZ25TA PO ×2 (03:46→03:47)
[2019-02-12] MEDS ORDERED: MEDR2.5T28 PO (03:48)
[2019-02-12] MEDS ORDERED: TRAZ-120 PO ×2 (03:50→03:52)
[2019-02-12 06:15] VITALS: BP 123/67
[2019-02-12] MEDS: LACTULOSE 20 GM/30 ML SOLUTION. PO SCH (08:17)
[2019-02-12] MEDS: POLYETHYLENE GLYCOL 3350 17 GM PACKET. PO SCH (08:18)
[2019-02-12] MEDS: FAMOTIDINE 20 MG TABLET PO SCH (08:18)
[2019-02-12] MEDS: medroxyPROGESTERone 5 MG TABLET PO SCH (08:18)
[2019-02-12] MEDS: cloZAPine 25 MG TABLET PO SCH (08:18)
[2019-02-12] MEDS: risperiDONE 2 MG TABLET. PO SCH (08:18)
[2019-02-12] MEDS: LEVOTHYROXINE 25 MCG TABLET. PO SCH (08:18)
[2019-02-12] MEDS: MULTIVITAMIN with MINERAL TABLET. PO SCH (08:18)
[2019-02-12] MEDS: DIVALPROEX 125 MG CAP.SPRINK PO SCH (08:18)
[2019-02-12] MEDS: DEXTROMETHORPHAN/QUINIDINE 20/10MG CAPSULE. PO SCH (08:20)
[2019-02-12] MEDS: DORZOLAMIDE/TIMOLOL 2%/0.5% OPHTH SOLUTION 10ML BOTTLE. OD SCH (08:21)
[2019-02-12] MEDS: LORazepam 0.5 MG TABLET PO SCH ×2 (08:21→13:59)
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
--- NOTE | 2019-02-12 17:44 | PN ---
DATE: 02/12/2019 PSYCHIATRIC PROGRESS NOTE This late entry 02/11/2019 covers elements not covered in my initial note. SUBJECTIVE: I met with the patient in the evening. The patient slept 5 hours previous night. He has been less demanding, less psychotic, more cooperative, less bizarre in his behaviors. REVIEW OF SYSTEMS: No CV, , pulmonary, eye system symptoms on review. Reliability varies. MENTAL STATUS EXAM: Oriented to himself and situation. Speech is low in rate and rhythm, low in volume. Eye contact is poor, abstraction fair, computation impaired, language function intact. Mood is improved. Affect remains withdrawn. No active hallucinations, suicidal or homicidal ideation. LABORATORY DATA: Reviewed. IMPRESSION: Unchanged from my initial note. He has not been masturbating in public. PLAN: No change from initial note with possible discharge on 02/12/2019. MAN Bessy CHINCHILLA MD DR: MARY/gage JOB#: [id number] / [id number]
--- NOTE | 2019-02-12 18:59 | PDOC ---
Exam Note: Adrián Note: Please also refer to the separate dictated note~for this date of service dictated separately.~Patient seen individually. Discussed the patient with Nursing staff reviewed the chart.~Reviewed interim history and current functioning. Reviewed vital signs,~Labs/ Radiology~and current medications noted below. Continue current treatment with the changes noted in the dictated addendum note Assessment: Vital Signs: Vital Signs Date Time Temp Pulse Resp B/P (MAP) Pulse Ox O2 Delivery O2 Flow Rate FiO2 02/12/19 06:15 98.9 76 18 123/67 (85) 94 02/11/19 04:44 Room Air I&O Intake and Output 02/12/19 07:00 Intake Total 1400 ml Balance 1400 ml Intake Oral 1400 ml # Bowel Movements 1 Current Medications: Meds: Current Medications Acetaminophen (Tylenol) 650 mg PRN Q4HRS PRN PO FEVER; Start 01/08/19 at 21:30; Stop 01/09/19 at 21:29; Status Cancel Acetaminophen (Tylenol) 650 mg PRN Q6HRS PRN PO PAIN / TEMP; Start 01/09/19 at 00:30; Status Cancel Multi-Ingredient Ointment (Analgesic [place]) 1 she PRN QID PRN TP MUSCLE PAIN; Start 01/09/19 at 00:30; Stop 02/12/19 at 16:20; Status DC Al Hydroxide/Mg Hydroxide (Mylanta Plus Xs) 15 ml PRN AFTMEALHC PRN PO DYSP EPSIA; Start 01/09/19 at 00:30; Stop 02/12/19 at 16:20; Status DC Magnesium Hydroxide (Milk Of Magnesia) 2,400 mg PRN QHS PRN PO CONSTIPATION; Start 01/09/19 at 00:30; Stop 02/12/19 at 16:20; Status DC Divalproex Sodium (Depakote Sprinkles) 125 mg BID PO Last administered on 01/10/19at 07:52; Start 01/09/19 at 09:00; Stop 01/10/19 at 17:11; Status DC Estradiol (Estrace) 0.5 mg DAILY PO Last administered on 01/23/19at 08:20; Start 01/09/19 at 09:00; Stop 01/23/19 at 09:55; Status DC Haloperidol Lactate (Haldol) 5 mg PRN DAILY PRN IM ANXIETY / AGITATION; Start 01/09/19 at 02:15; Stop 01/12/19 at 16:48; Status DC Lorazepam (Ativan) 0.5 mg PRN DAILY PRN PO ANXIETY; Start 01/09/19 at 02:15; Stop 02/12/19 at 16:20; Status DC Lorazepam (Ativan) 0.5 mg TID PO Last administered on 02/12/19at 13:59; Start 01/09/19 at 09:00; Stop 02/12/19 at 16:20; Status DC Risperidone (RisperDAL) 2 mg BID PO Last administered on 01/17/19at 07:55; Start 01/09/19 at 09:00; Stop 01/17/19 at 16:41; Status DC Acetaminophen (Tylenol) 650 mg PRN Q6HRS PRN PO PAIN / TEMP; Start 01/09/19 at 02:15; Stop 02/12/19 at 16:20; Status DC Vitamin D (Vitamin D3) 50,000 unit WEEKLY PO Last administered on 02/06/19at 08:13; Start 01/09/19 at 09:00; Stop 02/12/19 at 16:20; Status DC Dextromethorphan/ Quinidine (Nuedexta 20-10 Mg Capsule) 1 cap BID PO Last administered on 02/12/19at 08:20; Start 01/09/19 at 09:00; Stop 02/12/19 at 16:20; Status DC Senna/Docusate Sodium (Senna Plus) 1 tab HS PO Last administered on 02/11/19at 20:33; Start 01/09/19 at 21:00; Stop 02/12/19 at 16:20; Status DC Tamsulosin HCl (Flomax) 0.4 mg HS PO Last administered on 02/11/19at 20:32; Start 01/09/19 at 21:00; Stop 02/12/19 at 16:20; Status DC Acetaminophen/ Codeine Phosphate (Tylenol #3) 1 tab PRN Q4HRS PRN PO PAIN; Start 01/09/19 at 02:15; Stop 02/12/19 at 16:20; Status DC Acetaminophen/ Codeine Phosphate (Tylenol #3) 2 tab PRN Q4HRS PRN PO PAIN; Start 01/09/19 at 02:15; Stop 02/12/19 at 16:20; Status DC Non-Formulary Medication (Amino Acids/ Protein Hydrolys (Pro-Stat Awc Liquid Packet)) 30 ml DAILY PO ; Start 01/09/19 at 09:00; Status UNV Non-Formulary Medication (Carboxymethylcellulos/ Glycerin (Refresh Optive Eye Drops)) 1 drop HS OD ; Start 01/09/19 at 21:00; Stop 01/09/19 at 21:00; Status DC Artificial Tears (Refresh Classic) 1 drop QID OU ; Start 01/09/19 at 09:00; Stop 01/09/19 at 09:00; Status DC Dorzolamide/ Timolol (Cosopt) 1 drop BID OD Last administered on 02/12/19at 08:21; Start 01/09/19 at 09:00; Stop 02/12/19 at 16:20; Status DC Lactulose (Lactulose) 20 gm BID PO Last administered on 02/12/19at 08:17; Start 01/09/19 at 09:00; Stop 02/12/19 at 16:20; Status DC Latanoprost (Xalatan) 1 drop QHS OD Last administered on 01/24/19at 20:03; Start 01/09/19 at 21:00; Stop 01/25/19 at 16:10; Status DC Levothyroxine Sodium (Synthroid) 25 mcg DAILY06 PO Last administered on 02/12/19at 08:18; Start 01/09/19 at 06:00; Stop 02/12/19 at 16:20; Status DC Multivitamins/ Calcium (Thera-M Plus) 1 tab DAILY PO Last administered on 02/12/19 08:18; Start 01/09/19 at 09:00; Stop 02/12/19 at 16:20; Status DC Polyethylene Glycol (miraLAX) 17 gm DAILY PO Last administered on 02/12/19 08:18; Start 01/09/19 at 09:00; Stop 02/12/19 at 16:20; Status DC Famotidine (Pepcid) 20 mg BID PO Last administered on 02/12/19 08:18; Start 01/09/19 at 09:00; Stop 02/12/19 at 16:20; Status DC Erythromycin (Romycin) 1 inch DAILY OS Last administered on 01/10/19 07:53; Start 01/09/19 at 09:00; Stop 01/10/19 at 10:32; Status DC Divalproex Sodium (Depakote Sprinkles) 250 mg BID PO Last administered on 01/13/19 07:41; Start 01/10/19 at 21:00; Stop 01/13/19 at 18:48; Status DC Trazodone HCl (Desyrel) 50 mg QHS PO Last administered on 02/11/19 20:33; Start 01/10/19 at 21:00; Stop 02/12/19 at 16:20; Status DC Trazodone HCl (Desyrel) 50 mg PRN QHS PRN PO INSOMNIA Last administered on 02/12/19 01:41; Start 01/10/19 at 17:15; Stop 02/12/19 at 16:20; Status DC Divalproex Sodium (Depakote Sprinkles) 500 mg BID PO Last administered on 02/12/19 08:18; Start 01/13/19 at 21:00; Stop 02/12/19 at 16:20; Status DC Risperidone (RisperDAL) 1.5 mg DAILY PO Last administered on 01/19/19 07:36; Start 01/18/19 at 09:00; Stop 01/20/19 at 08:59; Status DC Risperidone (RisperDAL) 2 mg QHS PO Last administered on 01/19/19 21:14; Start 01/17/19 at 21:00; Stop 01/20/19 at 20:59; Status DC Risperidone (RisperDAL) 1.5 mg BID PO Last administered on 01/25/19 08:23; Start 01/20/19 at 09:00; Stop 01/25/19 at 12:04; Status DC Medroxyprogesterone Acetate (Provera) 2.5 mg DAILY PO Last administered on 02/10 08:25; Start 01/24/19 at 09:00; Stop 02/10/19 at 20:37; Status DC Risperidone (RisperDAL) 2 mg BID PO Last administered on 02/12/19 08:18; Start 01/25/19 at 21:00; Stop 02/12/19 at 16:20; Status DC Olanzapine (ZyPREXA ZYDIS) 5 mg PRN Q2HR PRN PO PSYCHOSIS Last administered on 02/04/19 16:56; Start 01/25/19 at 12:00; Stop 02/12/19 at 16:20; Status DC Latanoprost (Xalatan) 1 drop QHS OD Last administered on 02/11/19 20:35; Start 01/25/19 at 16:10; Stop 02/12/19 at 16:20; Status DC Clozapine (Clozaril) 25 mg HS PO Last administered on 02/01/19 20:08; Start 01/27/19 at 21:00; Stop 02/02/19 at 13:26; Status DC Clozapine (Clozaril) 50 mg BID PO Last administered on 02/10/19 08:24; Start 02/02/19 at 21:00; Stop 02/10/19 at 19:29; Status DC Artificial Tears (Refresh Classic) 1 drop QIDPRN PRN OU DRY EYE Last administered on 02/07/19 05:31; Start 02/06/19 at 21:00; Stop 02/12/19 at 16:20; Status DC Clozapine (Clozaril) 50 mg DAILY PO Last administered on 02/12/19 08:18; Start 02/11/19 at 09:00; Stop 02/12/19 at 16:20; Status DC Clozapine (Clozaril) 75 mg HS PO Last administered on 02/11/19 20:33; Start 02/10/19 at 21:00; Stop 02/12/19 at 16:20; Status DC Medroxyprogesterone Acetate (Provera) 5 mg DAILY PO Last administered on 02/12/19 08:18; Start 02/11/19 at 09:00; Stop 02/12/19 at 16:20; Status DC Medroxyprogesterone Acetate (Provera) 2.5 mg 1X ONCE PO Last administered on 02/11/19 03:05; Start 02/11/19 at 03:00; Stop 02/11/19 at 03:54; Status DC Active Scripts Active Reported Trazodone Hcl 50 Mg Tablet 50 Mg PO PRN QHS PRN Trazodone Hcl 50 Mg Tablet 50 Mg PO QHS Medroxyprogesterone Acetate 2.5 Mg Tablet 5 Mg PO DAILY Clozaril (Clozapine) 25 Mg Tablet 75 Mg PO QHS Clozaril (Clozapine) 25 Mg Tablet 50 Mg PO DAILY Zyprexa Zydis (Olanzapine) 5 Mg Tab.rapdis 5 Mg PO PRN Q2HR PRN Analgesic [place] (Methyl Salicylate/Menthol) 28 Gm Oint...g. 1 She TP PRN QID PRN Milk Of Magnesia (Magnesium Hydroxide) 400 Mg/5 Ml Oral.susp 2,400 Mg PO PRN QHS PRN Mag-Al Plus Xs Suspension (Mag Hydrox/Al Hydrox/Simeth) 30 Ml Oral.susp 15 Ml PO PRN AFTMEALHC PRN Ranitidine Hcl 150 Mg Tablet 150 Mg PO BID Tylenol (Acetaminophen) 325 Mg Tablet 650 Mg PO PRN Q6HRS Flomax (Tamsulosin Hcl) 0.4 Mg Cap.er.24h 0.4 Mg PO HS Senna Plus Tablet (Sennosides/Docusate Sodium) 1 Each Tablet 1 Each PO HS Risperidone 2 Mg Tablet 2 Mg PO BID Refresh Optive Eye Drops (Carboxymethylcellulos/Glycerin) 15 Ml Drops 1 Drop OU QID Miralax (Polyethylene Glycol 3350) 17 Gm Powd.pack 17 Gm PO DAILY Nuedexta 20-10 Mg Capsule (Dextromethorphan Hbr/Quinidine) 1 Each Capsule 1 Each PO BID Multivitamins (Multivitamin) 1 Each Tablet 1 Each PO DAILY Levothyroxine Sodium 25 Mcg Tablet 25 Mcg PO DAILY06 Latanoprost 2.5 Ml Drops 1 Drop OD QHS Lactulose 10 Gm/15 Ml Solution 20 Gm PO BID Dorzolamide-Timolol Eye Drops (Dorzolamide Hcl/Timolol Maleat) 10 Ml Drops 1 Drop OD BID Depakote (Divalproex Sodium) 500 Mg Tablet.dr 500 Mg PO BID D3-50 (Cholecalciferol (Vitamin D3)) 50,000 Unit Capsule 50,000 Unit PO WEEKLY SUNDAY Lorazepam 0.5 Mg Tablet 0.5 Mg PO PRN DAILY PRN Lorazepam 0.5 Mg Tablet 0.5 Mg PO TID Tylenol With Codeine #3 Tablet (Acetaminophen With Codeine) 1 Each Tablet 2 Each PO PRN Q4HRS PRN Tylenol With Codeine #3 Tablet (Acetaminophen With Codeine) 1 Each Tablet 1 Each PO PRN Q4HRS PRN I have reviewed the current psychotropics carefully including drug interactions. Risk benefit ratio favors no change other than as noted in my dictated progress note. Diagnosis: Problems: (1) Mild cognitive disorder (2) Schizoaffective disorder, chronic condition with acute exacerbation (3) Impulse control disorder (4) Major depressive disorder, recurrent episode (5) Anxiety disorder LEENA CHINCHILLA MD Feb 12, 2019 18:59
== END 2019-02-12 16:00 | DRG 885 ==
LOC: ER 20:25 → GEROPSY 01-09 00:12
PROVIDERS: ADMIT Psychiatry & Neurology Psychiatry; ATTEND Psychiatry & Neurology Psychiatry
DX: F25.0 Schizoaffective disorder, bipolar type (principal); F33.9 Major depressive disorder, recurrent, unspecified; F63.9 Impulse disorder, unspecified; F41.9 Anxiety disorder, unspecified; F09 Unspecified mental disorder due to known physiological condition; D64.9 Anemia, unspecified; E03.9 Hypothyroidism, unspecified; F03.90 Unspecified dementia, unspecified severity, without behavioral disturbance, psychotic disturbance, mood disturbance, and anxiety; F48.2 Pseudobulbar affect; G47.00 Insomnia, unspecified; I10 Essential (primary) hypertension; K21.9 Gastro-esophageal reflux disease without esophagitis; N40.0 Benign prostatic hyperplasia without lower urinary tract symptoms; Z66 Do not resuscitate
CPT/HCPCS: 36415; 80048; 80053; 80061; 80164; 80307; 81001; 82306; 83036; 83540; 83550; 83735; 84436; 84443; 84480; 85025; 85027; 86592; 93005; G0480; 99285-25